=== PATIENT | male | born 1935 | race Caucasian/White ===

== ENCOUNTER 2017-06-13 21:35 | Inpatient (IN) | payer OTHER, BC ==
--- NOTE | 2017-06-13 21:49 | PDOC ---
History of Present Illness <Jeffery Asif - Last Filed: 06/14/17 02:09> - History of Present Illness Initial Comments: 06/13/17 21:46 82 M with h/o COPD/asthma, HTN, HLD, hypothyroid, presenting to ER with SOB. Pt states that he has been feeling unwell for several days. Pt denies F/C. Endorses SOB with chest pressure and tightness. Denies leg swelling. Denies recent immobilization/travel. No h/o DVT/PE. Per family, pt has had progressive decline over several months and has become very weak. En route to ER, pt was found to have significant wheezing. EMS gave nebulizer treatment with significant improvement in symptoms. <Jordan Loza - Last Filed: 06/25/17 20:18> - General Chief Complaint: Shortness of Breath Stated Complaint: DIFFICULTY BREATHING, FEVER Time Seen by Provider: 06/13/17 21:42 Past History <Jeffery Asif - Last Filed: 06/14/17 02:09> - Past Medical History Asthma: Yes Cardiac Disorders: Yes (STENT INSERTION, HEART MURMUR) COPD: Yes Hypercholesterolemia: Yes Thyroid Disease: Yes - Suicide/Smoking/Psychosocial Hx Smoking History: Former smoker Have you smoked in the past 12 months: No Hx Alcohol Use: No Drug/Substance Use Hx: No Substance Use Type: None Hx Substance Use Treatment: No <Jordan Loza - Last Filed: 06/25/17 20:18> - Past Medical History Allergies/Adverse Reactions: Allergies Allergy/AdvReac Type Severity Reaction Status Date / Time prednisone Allergy Verified 06/13/17 21:55 Home Medications: Ambulatory Orders Ascorbic Acid [Vitamin C] 1,000 mg PO DAILY 06/14/17 Aspirin 81 mg PO DAILY 06/14/17 Budesonide/Formeterol Fumarate [SYMBICORT 160/4.5mcg -] 1 inh PO BID 06/14/17 Carvedilol 3.125 mg PO BID 06/14/17 Cholecalciferol (Vitamin D3) [Vitamin D -] 800 unit PO DAILY 06/14/17 Docusate Sodium [Colace] 100 mg PO HS 06/14/17 Docusate Sodium [Colace] 100 mg PO HS 06/14/17 Iron 18 mg PO DAILY 06/14/17 Leflunomide 20 mg PO DAILY 06/14/17 Leflunomide 20 mg PO DAILY 06/14/17 Levothyroxine [Synthroid -] 50 mcg PO DAILY 06/14/17 Montelukast Na [Singulair -] 10 mg PO HS 06/14/17 Montelukast Sodium [Singulair] 10 mg PO HS 06/14/17 Multivitamin [Multiple Vitamins] 1 each PO DAILY 06/14/17 Acetaminophen [Tylenol .Regular Strength -] 650 mg PO Q4H PRN tablet 06/19/17 Albuterol 0.083% Nebulizer Le [Ventolin 0.083% Nebulizer Soln -] 1 amp NEB Q4H PRN amp 06/19/17 Amox-Tr/K Cl [Augmentin 500-125mg Tablet -] 1 tab PO BID@0800,1730 3 Days tablet 06/19/17 Atorvastatin Ca [Lipitor] 80 mg PO HS tablet 06/19/17 Azithromycin [Zithromax 250mg Tablets -] 500 mg PO DAILY tablet 06/19/17 Guaifenesin [Robitussin -] 10 ml PO Q4H PRN cup 06/19/17 Leflunomide [Arava -] 20 mg PO DAILY tablet 06/19/17 Levothyroxine [Synthroid -] 50 mcg PO DAILY@0700 tablet 06/19/17 Polyethylene Glycol 3350 [Miralax 119 gm Btl -] 17 gm PO DAILY bottle 06/19/17 Prednisone [Deltasone -] 20 mg PO DAILY tablet 06/19/17 Review of Systems - Review of Systems Comments:: 06/13/17 21:56 "GENERAL/CONSTITUTIONAL: No fever or chills. No weakness. HEAD, EYES, EARS, NOSE AND THROAT: No change in vision. No ear pain or discharge. No sore throat. CARDIOVASCULAR: + chest pain RESPIRATORY: + SOB GASTROINTESTINAL: No nausea, vomiting, diarrhea or constipation. GENITOURINARY: No dysuria, frequency, or change in urination. MUSCULOSKELETAL: No joint or muscle swelling or pain. No neck or back pain. SKIN: No rash NEUROLOGIC: No headache, vertigo, loss of consciousness, or change in strength/ sensation. ENDOCRINE: No increased thirst. No abnormal weight change. HEMATOLOGIC/LYMPHATIC: No anemia, easy bleeding, or history of blood clots. ALLERGIC/IMMUNOLOGIC: No hives or skin allergy. " <Jordan Loza - Last Filed: 06/25/17 20:18> *Physical Exam - Vital Signs Last Vital Signs Temp Pulse Resp BP Pulse Ox 100.9 F H 116 H 18 153/95 100 06/14/17 00:33 06/13/17 21:51 06/13/17 21:51 06/13/17 21:51 06/13/17 21:51 <Jeffery Asif - Last Filed: 06/14/17 02:09> - Physical Exam Comments: 06/13/17 21:57 "GENERAL: Awake, alert, and fully oriented, in no acute distress HEAD: No signs of trauma EYES: PERRLA, EOMI, sclera anicteric, conjunctiva clear ENT: Auricles normal inspection, hearing grossly normal, nares patent, oropharynx clear without exudates. Moist mucosa NECK: Nontender, no stepoffs, Normal ROM, supple, no lymphadenopathy, JVD, or masses LUNGS: Scant bilateral wheezes HEART: Regular rate and rhythm, normal S1 and S2, no murmurs, rubs or gallops ABDOMEN: Soft, nontender, normoactive bowel sounds. No guarding, no rebound. No masses EXTREMITIES: Normal range of motion, no edema. No clubbing or cyanosis. No cords, erythema, or tenderness NEUROLOGICAL: Cranial nerves II through XII intact. 5/5 strength and sensation in all extremities, Normal speech, normal gait SKIN: Warm, Dry, normal turgor, no rashes or lesions noted. " <Jordan Loza - Last Filed: 06/25/17 20:18> Heart Score/ECG Review - ECG Impressions Comment:: 06/13/17 21:58 NSR, no IDALIA/STDs, TWI in II, III, aVF, hyperacute T waves in V4-V5 <Jordan Loza - Last Filed: 06/25/17 20:18> ED Treatment Course - LABORATORY CBC & Chemistry Diagram: 06/13/17 22:50 06/14/17 00:01 - ADDITIONAL ORDERS Additional order review: Laboratory Results 06/14/17 06/13/17 06/13/17 00:01 23:00 22:50 PTT (Actin FS) VBG pH 7.52 H POC VBG pCO2 30.0 L POC VBG pO2 75.4 H Mixed VBG HCO3 24.3 Sodium 138 Potassium 3.5 Chloride 104 Carbon Dioxide 23 Anion Gap 11 BUN 18 Creatinine 0.5 L Creat Clearance w eGFR > 60 Random Glucose 148 H Calcium 7.8 L Total Bilirubin 0.3 AST 25 ALT 12 Alkaline Phosphatase 73 Creatine Kinase 91 Troponin I 1.97 H* B-Natriuretic Peptide 1852.70 H Total Protein 5.1 L Albumin 2.2 L Blood Type O POSITIVE Antibody Screen Negative 06/13/17 06/13/17 06/13/17 22:50 22:50 22:50 PTT (Actin FS) 57.0 H VBG pH POC VBG pCO2 POC VBG pO2 Mixed VBG HCO3 Sodium Cancelled Potassium Cancelled Chloride Cancelled Carbon Dioxide Cancelled Anion Gap Cancelled BUN Cancelled Creatinine Cancelled Creat Clearance w eGFR Cancelled Random Glucose Cancelled Calcium Cancelled Total Bilirubin Cancelled AST Cancelled ALT Cancelled Alkaline Phosphatase Cancelled Creatine Kinase Cancelled Troponin I Cancelled B-Natriuretic Peptide Cancelled Total Protein Cancelled Albumin Cancelled Blood Type Antibody Screen 06/13/17 23:20 Influenza Types A,B Antigen ([facility]) - Final Nasopharyngeal Swab - Final 06/13/17 22:50 RBC 2.65 L D MCV 91.2 MCHC 32.1 RDW 18.1 H MPV 6.5 L Neutrophils % 76.0 Lymphocytes % 13.3 Monocytes % 7.6 Eosinophils % 2.8 Basophils % 0.3 - RADIOLOGY Radiograph Interpretation: 06/14/17 02:09 EXAM: XR CHEST HISTORY: Shortness of breath COMPARISON: No prior chest x-rays have been transmitted for comparison FINDINGS: Osseous structures are intact. The heart size is magnified on this portable view but probably enlarged. There is prominence of the bilateral pulmonary interstitium diffusely. This could be related to chronic interstitial lung disease or pulmonary congestion. Interstitial pneumonitis is a possible secondary consideration. If prior chest x -rays can be transmitted I can perform a comparative interpretation. Reported by Anoop Suh MD - Medications Given in the ED: ED Medications Discontinued Medications Generic Name Dose Route Start Last Admin Trade Name Freq PRN Reason Stop Dose Admin Acetaminophen 1,000 mg 06/13/17 21:59 06/13/17 23:00 Ofirmev Injection - IVPB 06/13/17 22:00 1,000 mg ONCE ONE Administration Albuterol/Ipratropium 1 amp 06/13/17 21:59 06/13/17 22:58 Duoneb - NEB 06/13/17 22:00 1 amp ONCE ONE Administration Azithromycin 500 mg/ Dextrose 250 mls @ 250 mls/hr 06/13/17 21:59 06/13/17 22 :00 IVPB 06/13/17 22:58 250 mls/hr ONCE ONE Administration Ceftriaxone Sodium 1 gm/ 50 mls @ 100 mls/hr 06/13/17 22:00 06/13/17 23:00 Dextrose IVPB 06/13/17 22:29 100 mls/hr ONCE ONE Administration <Jeffery Asif - Last Filed: 06/14/17 02:09> - LABORATORY CBC & Chemistry Diagram: 06/19/17 05:05 06/19/17 05:05 - RADIOLOGY Radiology Studies Ordered: Category Date Time Status CHEST X-RAY PORTABLE* [RAD] Stat Radiology 06/13/17 21:43 Ordered <Jordan Loza - Last Filed: 06/25/17 20:18> Medical Decision Making - Medical Decision Making 06/13/17 21:58 82 M with SOB and chest pain, wheezing on exam and found to be febrile in ER. Likely PNA with concomitant COPD exacerbation. - Labs, cultures - CXR - Abx - Admit 06/14/17 01:55 CBC,CMP WBC 5.3 K/mm3 (4.0-10.0) 06/13/17 22:50 RBC 2.65 M/mm3 (4.00-5.60) L D 06/13/17 22:50 Hgb 7.8 GM/dL (11.7-16.9) L D 06/13/17 22:50 Hct 24.2 % (35.4-49) L D 06/13/17 22:50 MCV 91.2 fl (80-96) 06/13/17 22:50 MCH 29.3 pg (25.7-33.7) 06/13/17 22:50 MCHC 32.1 g/dl (32.0-35.9) 06/13/17 22:50 RDW 18.1 % (11.9-15.9) H 06/13/17 22:50 Plt Count 131 K/MM3 (134-434) L D 06/13/17 22:50 MPV 6.5 fl (7.5-11.1) L 06/13/17 22:50 Neutrophils % 76.0 % (42.8-82.8) 06/13/17 22:50 Lymphocytes % 13.3 % (8-40) 06/13/17 22:50 Monocytes % 7.6 % (3.8-10.2) 06/13/17 22:50 Eosinophils % 2.8 % (0-4.5) 06/13/17 22:50 Basophils % 0.3 % (0-2.0) 06/13/17 22:50 Sodium 138 mmol/L (136-145) 06/14/17 00:01 Potassium 3.5 mmol/L (3.5-5.1) 06/14/17 00:01 Chloride 104 mmol/L (98-107) 06/14/17 00:01 Carbon Dioxide 23 mmol/L (21-32) 06/14/17 00:01 Anion Gap 11 (8-16) 06/14/17 00:01 BUN 18 mg/dL (7-18) 06/14/17 00:01 Creatinine 0.5 mg/dL (0.7-1.3) L 06/14/17 00:01 Creat Clearance w eGFR > 60 (>60) 06/14/17 00:01 Random Glucose 148 mg/dL (74-106) H 06/14/17 00:01 Calcium 7.8 mg/dL (8.5-10.1) L 06/14/17 00:01 Total Bilirubin 0.3 mg/dL (0.2-1.0) 06/14/17 00:01 AST 25 U/L (15-37) 06/14/17 00:01 ALT 12 U/L (12-78) 06/14/17 00:01 Alkaline Phosphatase 73 U/L (45-117) 06/14/17 00:01 Creatine Kinase 91 IU/L (39-308) 06/14/17 00:01 Troponin I 1.97 ng/ml (0.00-0.05) H* 06/14/17 00:01 B-Natriuretic Peptide 1852.70 pg/ml (5-450) H 06/14/17 00:01 Total Protein 5.1 g/dl (6.4-8.2) L 06/14/17 00:01 Albumin 2.2 g/dl (3.4-5.0) L 06/14/17 00:01 Labs notable for anemia Hb 7.8. Pt with trop 1.97 - EKG with TWI in II,III, hyperacute T waves in V4-V5. Pt likely septic 2/2 pulmonary source. Covered with ceftriaxone and azithro for CAP. Will also transfuse for symptomatic anemia with severe cardiovascular disease. Pt admitted to Med/surg tele under Dr. Ahmadi Case discussed in detail with admitting physician including history, physical exam and ancillary studies. Admitting physician has assumed care for the patient and will follow all pending diagnostics and complete the evaluation and treatment. <Jordan Loza - Last Filed: 06/25/17 20:18> *DC/Admit/Observation/Transfer - Attestations Scribe Attestion: 06/14/17 02:10 Documentation prepared by Jeffery Asif, acting as medical office professional instructor for Jordan Loza MD. <Jeffery Asif - Last Filed: 06/14/17 02:09> - Discharge Dispostion Admit: Yes - Attestations Physician Attestion: 06/14/17 02:08 I, Dr. Jordan Loza MD, attest that this document has been prepared under my direction and personally reviewed by me in its entirety. I further attest, that it accurately reflects all work, treatment, procedures and medical decision -making performed by me. <Jordan Loza - Last Filed: 06/25/17 20:18> Diagnosis at time of Disposition: Sepsis due to pneumonia, Anemia - Discharge Dispostion Disposition: [facility] Condition at time of disposition: Stable
[2017-06-13] MEDS ORDERED: AZITHROMYCIN IVPB 500 MG in DEXTROSE 5%-WATER - 250 ML IVPB ONE (21:59)
[2017-06-13] MEDS ORDERED: ACETAMINOPHEN 1000 MG/100 ML VIAL (NON FORMULARY) IVPB ONE (21:59)
[2017-06-13] MEDS ORDERED: ALBUTEROL SO4 2.5/IPRATROPIUM 0.5 INH SOL 3 ML VIAL.NEB. NEB ONE ×2 (21:59→22:22)
[2017-06-13] MEDS ORDERED: CEFTRIAXONE 1 GM in DEXTROSE 5%-WATER - 50 ML IVPB ONE (22:00)
[2017-06-13] MEDS ORDERED: ACETAMINOPHEN INJECTION 100 ML IVPB ONE (22:22)
[2017-06-13] MEDS ORDERED: AZITHROMYCIN IVPB 250 ML IVPB ONE (22:23)
[2017-06-13] MEDS ORDERED: CEFTRIAXONE 1 GM/50 ML BAG ONE (22:23)
[2017-06-13 23:08] LABS: VENOUS PH 7.52 (7.32-7.42); VENOUS PO2 75.4 mmHg (28-48)
[2017-06-13 23:17] LABS: BASO % 0.3 % (0-2.0); EOS % 2.8 % (0-4.5); HEMATOCRIT 24.2 % (35.4-49); HEMOGLOBIN 7.8 GM/dL (11.7-16.9); LYMPH % 13.3 % (8-40); MCH 29.3 pg (25.7-33.7); MCHC 32.1 g/dl (32.0-35.9); MEAN CELL VOLUME 91.2 fl (80-96); MEAN PLT VOLUME 6.5 fl (7.5-11.1); MONO % 7.6 % (3.8-10.2); PLATELET COUNT 131 K/MM3 (134-434); RBC 2.65 M/mm3 (4.00-5.60); RDW 18.1 % (11.9-15.9); WHITE BLOOD COUNT 5.3 K/mm3 (4.0-10.0)
[2017-06-14 01:35] LABS: ALBUMIN 2.2 g/dl (3.4-5.0); ANION GAP 11 (8-16); BILIRUBIN,TOTAL 0.3 mg/dL (0.2-1.0); BLOOD UREA NITROGEN 18 mg/dL (7-18); CALCIUM 7.8 mg/dL (8.5-10.1); CHLORIDE 104 mmol/L (98-107); CO2 23 mmol/L (21-32); CREATININE 0.5 mg/dL (0.7-1.3); GLUCOSE,RANDOM 148 mg/dL (74-106); POTASSIUM 3.5 mmol/L (3.5-5.1); SGOT/AST 25 U/L (15-37); SGPT/ALT 12 U/L (12-78); SODIUM 138 mmol/L (136-145); TOT PROT 5.1 g/dl (6.4-8.2)
[2017-06-14 01:49] LABS: ALK PHOS 73 U/L (45-117)
--- NOTE | 2017-06-14 03:56 | HP ---
CHIEF COMPLAINT: Weakness, Chest Pain, SOB PCP: Dr Paez HISTORY OF PRESENT ILLNESS: This is a 82 y/o man from home. Who presents to the ED with generalized weakness. chest pain, SOB. Patient is a poor historian unable to provide HPI. per ED record: Pt states that he has been feeling unwell for several days. Pt denies F/C. Endorses SOB with chest pressure and tightness. Denies leg swelling. Denies recent immobilization/travel. No h/o DVT/PE. Per family, pt has had progressive decline over several months and has become very weak. En route to ER, Pt was found to have significant wheezing. EMS gave nebulizer treatment with significant improvement in symptoms. ER course was notable for: (1) Chest Xray image- ? PNA (2) SIRS Criteria Met- T Max 103.3-100.9, P 116, (3) Recent Travel: None PAST MEDICAL HISTORY: Asthma COPD HTN HLD Hypothyroid Cardiac stent placement PAST SURGICAL HISTORY: Stent Placement Social History: Smoking: Former Alcohol: None Drugs: None Lives with spouse Family History: Non- Contributory Allergies prednisone Allergy (Verified 06/13/17 21:55) HOME MEDICATIONS: Home Medications Medication Instructions Recorded Ascorbic Acid [Vitamin C] 1,000 mg PO DAILY 06/14/17 Aspirin 81 mg PO DAILY 06/14/17 Atorvastatin Ca [Lipitor] 20 mg PO HS 06/14/17 Budesonide/Formeterol Fumarate 1 inh PO DAILY 06/14/17 [SYMBICORT 160/4.5mcg -] Carvedilol 3.125 mg PO DAILY 06/14/17 Cholecalciferol (Vitamin D3) 800 unit PO DAILY 06/14/17 [Vitamin D3 -] Docusate Sodium [Colace] 100 mg PO HS 06/14/17 Iron 18 mg PO DAILY 06/14/17 Leflunomide 20 mg PO DAILY 06/14/17 Montelukast Na [Singulair -] 10 mg PO HS 06/14/17 Multivitamin [Multiple Vitamins] 1 each PO DAILY 06/14/17 REVIEW OF SYSTEMS CONSTITUTIONAL: generalized weakness, malaise, loss of appetite, Absent: fever, chills, diaphoresis, weight change HEENT: Absent: rhinorrhea, nasal congestion, throat pain, throat swelling, difficulty swallowing, mouth swelling, ear pain, eye pain, visual changes CARDIOVASCULAR: chest pain Absent: syncope, palpitations, irregular heart rate, lightheadedness, peripheral edema RESPIRATORY: shortness of breath Absent: cough, dyspnea with exertion, orthopnea, wheezing, stridor, hemoptysis GASTROINTESTINAL: Absent: abdominal pain, abdominal distension, nausea, vomiting, diarrhea, constipation, melena, hematochezia GENITOURINARY: Absent: dysuria, frequency, urgency, hesitancy, hematuria, flank pain, genital pain MUSCULOSKELETAL: Absent: myalgia, arthralgia, joint swelling, back pain, neck pain SKIN: Absent: rash, itching, pallor HEMATOLOGIC/IMMUNOLOGIC: Absent: easy bleeding, easy bruising, lymphadenopathy, frequent infections ENDOCRINE: Absent: unexplained weight gain, unexplained weight loss, heat intolerance, cold intolerance NEUROLOGIC: Absent: headache, focal weakness or paresthesias, dizziness, unsteady gait, seizure, mental status changes, bladder or bowel incontinence PSYCHIATRIC: Absent: anxiety, depression, suicidal or homicidal ideation, hallucinations. PHYSICAL EXAMINATION Vital Signs - 24 hr 06/13/17 06/14/17 06/14/17 21:51 00:33 03:36 Temperature 103.3 F H 100.9 F H Pulse Rate 116 H Respiratory 18 Rate Blood Pressure 153/95 O2 Sat by Pulse 100 95 Oximetry (%) 06/14/17 03:54 Temperature 99.6 F Pulse Rate Respiratory Rate Blood Pressure O2 Sat by Pulse Oximetry (%) GENERAL: Asleep but arousable, oriented to name, in no acute distress. HEAD: Normal with no signs of trauma. EYES: Pupils equal, round and reactive to light, extraocular movements intact, sclera anicteric, conjunctiva clear, pale. No lid lag. EARS, NOSE, THROAT: Ears normal, nares patent, oropharynx clear without exudates. Dry mucous membranes. NECK: Normal range of motion, supple without lymphadenopathy, JVD, or masses. LUNGS: Scattered diffuse wheezes bilaterally. no crackles. No accessory muscle use. HEART: Systolic grade 2/6 murmur Regular rate and rhythm, normal S1 and S2. No rub or gallop. ABDOMEN: Soft, nontender, not distended, normoactive bowel sounds, no guarding, no rebound, no masses. No hepatomegaly or splenomegaly. MUSCULOSKELETAL: Normal range of motion at all joints. No bony deformities or tenderness. No CVA tenderness. UPPER EXTREMITIES: 2+ pulses, warm, well-perfused. No cyanosis. No clubbing. No peripheral edema. LOWER EXTREMITIES: 2+ pulses, warm, well-perfused. No calf tenderness. No peripheral edema. NEUROLOGICAL: Cranial nerves II-XII intact. Normal speech. Gait not observed. PSYCHIATRIC: Cooperative. Good eye contact. Appropriate mood and affect. SKIN: Pale, warm, dry, normal turgor, no rashes or lesions noted, normal capillary refill. Laboratory Results - last 24 hr 06/13/17 06/13/17 06/13/17 22:50 22:50 22:50 WBC 5.3 RBC 2.65 L D Hgb 7.8 L D Hct 24.2 L D MCV 91.2 MCH 29.3 MCHC 32.1 RDW 18.1 H Plt Count 131 L D MPV 6.5 L Neutrophils % 76.0 Lymphocytes % 13.3 Monocytes % 7.6 Eosinophils % 2.8 Basophils % 0.3 PTT (Actin FS) 57.0 H VBG pH POC VBG pCO2 POC VBG pO2 Mixed VBG HCO3 Sodium Potassium Chloride Carbon Dioxide Anion Gap BUN Creatinine Creat Clearance w eGFR Random Glucose Lactic Acid Calcium Total Bilirubin AST ALT Alkaline Phosphatase Creatine Kinase Cancelled Troponin I Cancelled B-Natriuretic Peptide Cancelled Total Protein Albumin Stool Occult Blood Blood Type Antibody Screen Crossmatch 06/13/17 06/13/17 06/13/17 22:50 22:50 23:00 WBC RBC Hgb Hct MCV MCH MCHC RDW Plt Count MPV Neutrophils % Lymphocytes % Monocytes % Eosinophils % Basophils % PTT (Actin FS) VBG pH 7.52 H POC VBG pCO2 30.0 L POC VBG pO2 75.4 H Mixed VBG HCO3 24.3 Sodium Cancelled Potassium Cancelled Chloride Cancelled Carbon Dioxide Cancelled Anion Gap Cancelled BUN Cancelled Creatinine Cancelled Creat Clearance w eGFR Cancelled Random Glucose Cancelled Lactic Acid Calcium Cancelled Total Bilirubin Cancelled AST Cancelled ALT Cancelled Alkaline Phosphatase Cancelled Creatine Kinase Troponin I B-Natriuretic Peptide Total Protein Cancelled Albumin Cancelled Stool Occult Blood Blood Type O POSITIVE Antibody Screen Negative Crossmatch 06/14/17 06/14/17 06/14/17 00:01 00:15 02:30 WBC RBC Hgb Hct MCV MCH MCHC RDW Plt Count MPV Neutrophils % Lymphocytes % Monocytes % Eosinophils % Basophils % PTT (Actin FS) VBG pH POC VBG pCO2 POC VBG pO2 Mixed VBG HCO3 Sodium 138 Potassium 3.5 Chloride 104 Carbon Dioxide 23 Anion Gap 11 BUN 18 Creatinine 0.5 L Creat Clearance w eGFR > 60 Random Glucose 148 H Lactic Acid Calcium 7.8 L Total Bilirubin 0.3 AST 25 ALT 12 Alkaline Phosphatase 73 Creatine Kinase 91 Troponin I 1.97 H* B-Natriuretic Peptide 1852.70 H Total Protein 5.1 L Albumin 2.2 L Stool Occult Blood Negative Blood Type O POSITIVE Antibody Screen Negative Crossmatch See Detail 06/14/17 02:37 WBC RBC Hgb Hct MCV MCH MCHC RDW Plt Count MPV Neutrophils % Lymphocytes % Monocytes % Eosinophils % Basophils % PTT (Actin FS) VBG pH POC VBG pCO2 POC VBG pO2 Mixed VBG HCO3 Sodium Potassium Chloride Carbon Dioxide Anion Gap BUN Creatinine Creat Clearance w eGFR Random Glucose Lactic Acid 1.3 Calcium Total Bilirubin AST ALT Alkaline Phosphatase Creatine Kinase Troponin I B-Natriuretic Peptide Total Protein Albumin Stool Occult Blood Blood Type Antibody Screen Crossmatch ASSESSMENT/PLAN: This is a 82 y/o man with a PMHx of: HTN, HLD, Asthma, COPD, Stent placement, Heart murmur, Former Smoker. Admitted for Sepsis secondary to Pneumonia, NSTEMI , Anemia. Plan: 1. Sepsis 2/2 CAP - Blood cultures-pending, Urine Culture, Urine Legionella- pending [id number] Score 2. Pt received Azithromycin, Ceftriaxone for CAP will continue. Appreciate ID Consult. Tylenol prn, gentle IVF, monitor CBCD, BMP. Lactic Acid- wnl 2. NSTEMI- Serial Enzymes x2, EKG reviewed, Continue cardiac monitoring, On exam- patient denies chest pain palpitations and SOB at present., Appreciate Cardiology Consult, Echo 3. Anemia- Hgb 7.8, concerning for a 2 points from last visit, stool occult- negative, will transfuse if H/H < 7.0, iron studies in am 4.? COPD Exacerbation- Continue home meds, O2, Duonebs prn, BNP- 1852 Monitor vitals, Appreciate Pulm Consult 5. Asthma- See above 6. HTN/HLD- Continue home meds, monitor renal function 7. FEN- PO fluids 1L Restriction, replete lytes, Low Na, Diabetic Diet 8. Code Status: Full Code 9. Dispo: Requires Inpatient Admission Problem List - Problem (1) Sepsis due to pneumonia Code(s): J18.9 - PNEUMONIA, UNSPECIFIED ORGANISM; A41.9 - SEPSIS, UNSPECIFIED ORGANISM (2) Weakness Code(s): R53.1 - WEAKNESS (3) Anemia Code(s): D64.9 - ANEMIA, UNSPECIFIED (4) COPD (chronic obstructive pulmonary disease) Code(s): J44.9 - CHRONIC OBSTRUCTIVE PULMONARY DISEASE, UNSPECIFIED (5) HTN (hypertension) Code(s): I10 - ESSENTIAL (PRIMARY) HYPERTENSION (6) HLD (hyperlipidemia) Code(s): E78.5 - HYPERLIPIDEMIA, UNSPECIFIED (7) Asthma Code(s): J45.909 - UNSPECIFIED ASTHMA, UNCOMPLICATED (8) DVT prophylaxis Code(s): [id number] - Visit type - Emergency Visit Emergency Visit: Yes ED Registration Date: 06/14/17 Care time: The patient presented to the Emergency Department on the above date and was hospitalized for further evaluation of their emergent condition. - New Patient This patient is new to me today: Yes Date on this admission: 06/14/17 - Critical Care Critical Care patient: No
[2017-06-14 04:15] LABS: URINE APPEARANCE CLEAR; URINE BILIRUBIN NEGATIVE (NEGATIVE); URINE BLOOD NEGATIVE (NEGATIVE); URINE COLOR LTYELLOW; URINE GLUCOSE (UA) NEGATIVE (NEGATIVE); URINE KETONE NEGATIVE (NEGATIVE); URINE LEUK ESTERASE NEGATIVE (NEGATIVE); URINE NITRITE NEGATIVE (NEGATIVE); URINE PROTEIN NEGATIVE (NEGATIVE); URINE UROBILINOGEN NEGATIVE mg/dL (0.2-1.0)
[2017-06-14 06:02] VITALS: BMI 19.3
[2017-06-14 08:16] LABS: INR 1.17 (0.82-1.09); PROTHROMBIN TIME (PATIENT) 13.2 SEC (9.98-11.88)
[2017-06-14 08:23] LABS: HEMATOCRIT 25.8 % (35.4-49); HEMOGLOBIN 8.4 GM/dL (11.7-16.9); MCH 29.2 pg (25.7-33.7); MCHC 32.3 g/dl (32.0-35.9); MEAN CELL VOLUME 90.4 fl (80-96); MEAN PLT VOLUME 6.4 fl (7.5-11.1); PLATELET COUNT 127 K/MM3 (134-434); RBC 2.86 M/mm3 (4.00-5.60); RDW 17.8 % (11.9-15.9); WHITE BLOOD COUNT 5.8 K/mm3 (4.0-10.0)
[2017-06-14 08:30] LABS: ANION GAP 8 (8-16); BLOOD UREA NITROGEN 13 mg/dL (7-18); CALCIUM 7.5 mg/dL (8.5-10.1); CHLORIDE 105 mmol/L (98-107); CO2 25 mmol/L (21-32); GLUCOSE,RANDOM 92 mg/dL (74-106); MAGNESIUM 1.9 mg/dL (1.8-2.4); POTASSIUM 3.5 mmol/L (3.5-5.1); SODIUM 138 mmol/L (136-145)
[2017-06-14 08:48] LABS: CREATININE 0.4 mg/dL (0.7-1.3)
[2017-06-14] MEDS ORDERED: CARVEDILOL 3.125 MG TABLET (FP) PO SCH (10:00)
[2017-06-14] MEDS: CARVEDILOL 3.125 MG TABLET (FP) PO SCH ×2 (11:00→21:15)
--- NOTE | 2017-06-14 11:21 | CON.CARD ---
Consult Consult Specialty:: cardio Referred by:: sharri Reason for Consultation:: DC - History of Present Illness Chief Complaint: malaise, weakness History of Present Illness: 82 y/o man presented with generalized weakness. per ER notes, pt admitted chest heaviness and SOB (? when). sx's ongoing for few days--poor historian per those notes. currently, he denies chest discomfort or sob and states he did not have this at home either. denies palpitations, leg swelling PMH: CAD, h/o AWMI HTN HPL thoracic aorta aneurysm copd AV dz - Alcohol/Substance Use Hx Alcohol Use: No - Smoking History Smoking history: Former smoker Have you smoked in the past 12 months: No Home Medications - Allergies Allergies/Adverse Reactions: Allergies Allergy/AdvReac Type Severity Reaction Status Date / Time prednisone Allergy Verified 06/13/17 21:55 - Home Medications Home Medications: Ambulatory Orders Ascorbic Acid [Vitamin C] 1,000 mg PO DAILY 06/14/17 Aspirin 81 mg PO DAILY 06/14/17 Atorvastatin Ca [Lipitor] 20 mg PO HS 06/14/17 Budesonide/Formeterol Fumarate [SYMBICORT 160/4.5mcg -] 1 inh PO BID 06/14/17 Carvedilol 3.125 mg PO BID 06/14/17 Cholecalciferol (Vitamin D3) [Vitamin D3 -] 800 unit PO DAILY 06/14/17 Docusate Sodium [Colace] 100 mg PO HS 06/14/17 Docusate Sodium [Colace] 100 mg PO HS 06/14/17 Iron 18 mg PO DAILY 06/14/17 Leflunomide 20 mg PO DAILY 06/14/17 Leflunomide 20 mg PO DAILY 06/14/17 Levothyroxine [Synthroid -] 50 mcg PO DAILY 06/14/17 Montelukast Na [Singulair -] 10 mg PO HS 06/14/17 Montelukast Sodium [Singulair] 10 mg PO HS 06/14/17 Multivitamin [Multiple Vitamins] 1 each PO DAILY 06/14/17 Family Disease History - Family Disease History Family History: Denies (no known CMP) Review of Systems - Review of Systems Constitutional: reports: Weakness Eyes: denies: Eye Pain HENT: denies: Nasal Congestion Neck: denies: Stiffness Cardiovascular: denies: Palpitations Respiratory: denies: Orthopnea, PND Gastrointestinal: denies: Diarrhea, Rectal Bleeding Genitourinary: denies: Burning, Hematuria Musculoskeletal: denies: Muscle Pain Integumentary: denies: Rash Neurological: denies: Numbness, Seizure, Syncope Endocrine: denies: Excessive Sweating Hematology/Lymphatic: denies: Excessive Bleeding Vital Signs: Vital Signs Temperature 98.6 F 06/14/17 10:37 Pulse Rate 84 06/14/17 10:37 Respiratory Rate 20 06/14/17 10:37 Blood Pressure 116/60 06/14/17 10:37 O2 Sat by Pulse Oximetry (%) 95 06/14/17 03:36 Constitutional: Yes: Well Nourished, No Distress Eyes: No: Sclera Icterus HENT: No: Nasal Congestion Neck: No: Decreased ROM Respiratory: Yes: CTA Bilaterally. No: Accessory Muscle Use, Rales, Wheezes Gastrointestinal: Yes: Normal Bowel Sounds. No: Distention, Hepatomegaly, Palpable Mass, Tenderness Cardiovascular: Yes: Regular Rate and Rhythm JVD: No Carotid Bruit: No PMI: Non-Displaced Heart Sounds: Yes: S1, S2. No: Gallop Murmur: Yes: Systolic Murmur (2/6 early VICKY rusb). No: Diastolic Murmur Musculoskeletal: Yes: Other (No kyphosis) Extremities: No: Cool, Cyanosis Edema: No Peripheral Pulses: 2+ Left Carotid, 2+ Right Carotid, 2+ Left Doralis Pedis, 2+ Right Dorsalis Pedis Integumentary: No: Jaundice Neurological: Yes: Alert. No: Seizure Psychiatric: No: Agitated - Other Data Labs, Other Data: CBC, BMP 06/14/17 07:00 06/14/17 07:00 INR, PTT INR 1.17 (0.82-1.09) H 06/14/17 07:00 Troponin, BNP 06/13/17 06/14/17 06/14/17 22:50 00:01 07:00 Troponin I Cancelled 1.97 H* 2.28 H* B-Natriuretic Peptide Cancelled 1852.70 H Troponin, BNP 06/13/17 06/14/17 06/14/17 22:50 00:01 07:00 Troponin I Cancelled 1.97 H* 2.28 H* B-Natriuretic Peptide Cancelled 1852.70 H Laboratory Tests 06/13/17 06/13/17 06/14/17 22:50 22:50 00:01 WBC 5.3 Hgb 7.8 L D Plt Count 131 L D PTT (Actin FS) 57.0 H Sodium Potassium Carbon Dioxide BUN Creatinine Troponin I 1.97 H* B-Natriuretic Peptide 1852.70 H 06/14/17 06/14/17 07:00 07:00 WBC Hgb 8.4 L Plt Count PTT (Actin FS) Sodium 138 Potassium 3.5 Carbon Dioxide 25 BUN 13 D Creatinine 0.4 L Troponin I 2.28 H* B-Natriuretic Peptide tele: NSR Assessment/Plan Echo 03/07: nl LV, nl RV, mild AI, mild-mod , ao root 4.[address] chest 05/06: severe copd changes, 4.2 cm ascending aorta ECG 06/13: very poor baseline. ? Afib, vs sinus with freq APCs. R-bonds QRS axis new vs prior. no path Q's. nonsp TWAs vs 12/2006 ECG 06/14: baseline wander artifact present--no suspected ST elevations. NSR with APCs, intermittent inc RBBB with associated repol abn.s; R-bonds QRS axis CXR: marked diffuse interstitial markings, no vasc redistribution, no alveolar infiltrates, no effusion (L base not well seen) generalized weakness, fever (103.3 in ER): -infectious w/u and tx per hospitalist -lactate normal -soft systolic murmur on exam, likely related to mild-mod noted on 03/07 office echo. -for rpt echo here NSTEMI, h/o CAD (AWMI s/p PCI): -pt with AW STEMI 2010 s/p PCI to mLAD, no residual -no angina or stress testing recently -preserved LVEF -here with nonspecific sx's for several days, including cp and sob (? timing of onset of angina sx's). -trop 1.9-->2.2-->2.0 -? Type II DC, vs Type I DC triggered by acute infection. -given pt clinically very stable and no ongoing sx's, and he has signif anemia of ? etiology, will defer heparin at present. low threshold to add UFH if anginal sx's. -cont home meds: coreg 3.125 bid, asa -increase atorva to 80 for now, at least short term for max anti-DC prevention, then will likely decr dose as outpt in several weeks -ecg's with signif motion artifact present, no ischemic ST changes noted--f/u ECG this am -right QRS axis present on ECG, ? due to copd--no recent priors for comparison. will check office chart. -no hypoxia here, doubt PE. -echo for LV wall motion/EF and RV size/fxn ? afib: -initial ECG with very poor baseline--cannot exclude Afib (vs sinus with APCs -cont tele monitoring -defer AC unless definite AFib seen (kwaku given acute anemia req PRBCs) anemia: -initial hgb 7.8, s/p PRBCs--up to 8.4 -baseline hgb 9 in 08/07, was 8.9 on 06/11 office labs -w/u per pmd -guaiac negative. cont ASA for now SOB: -? anginal sx at home, ? sec to anemia, known chronic copd -CXR reviewed, appears c/w chronic interstitial changes related to copd; no chf pattern -consider CT chest if no cause of fever found (atypical PNA?) -bnp 1800, no priors -clinically appears euvolemic--no diuresis indicated copd: -per pmd HTN: -bp running 90s-110s at present -cont carvedilol for now, low threshold to stop it if bp dips further aorta aneurysm: -stable size 4.2-4.5 cm ao root/ascending on recent imaging -routine bp mgmt and imaging surveillance as doing AV dz: -mild to moderate (03/07 study)
[2017-06-14] MEDS: FERROUS SO4 325 MG TABLET (FP) PO SCH (11:46)
[2017-06-14] MEDS: MULTIVITAMINS (DAILY MVI) TABLET (FP) PO SCH (11:46)
[2017-06-14] MEDS: ASCORBIC ACID 500 MG TABLET (FP) PO SCH (11:46)
[2017-06-14] MEDS: ASPIRIN 81 MG CHEWABLE TABLETS PO SCH (11:46)
--- NOTE | 2017-06-14 12:07 | CON.ID ---
Consult Consult Specialty:: infectious diseases Reason for Consultation:: pneumonia,weakness - History of Present Illness Chief Complaint: weakness History of Present Illness: 82 y/o man from home. admitted with generalized weakness. chest pain, SOB. Patient is a poor historian unable to provide HPI. Pt states that he has been feeling unwell for several days. patient also mentions that he has been having breathing difficuilty patient was found to ahve wheezing in the er also patient is a bit hard of hearing currently patinet states that he is feeling a little better patient started on abx ceftriaxone and zithro daughter in the room also on work up patient had positive troponin - History Source History Provided By: Patient, Family Member - Alcohol/Substance Use Hx Alcohol Use: No - Smoking History Smoking history: Former smoker Have you smoked in the past 12 months: No Home Medications - Allergies Allergies/Adverse Reactions: Allergies Allergy/AdvReac Type Severity Reaction Status Date / Time prednisone Allergy Verified 06/13/17 21:55 - Home Medications Home Medications: Ambulatory Orders Ascorbic Acid [Vitamin C] 1,000 mg PO DAILY 06/14/17 Aspirin 81 mg PO DAILY 06/14/17 Atorvastatin Ca [Lipitor] 20 mg PO HS 06/14/17 Budesonide/Formeterol Fumarate [SYMBICORT 160/4.5mcg -] 1 inh PO BID 06/14/17 Carvedilol 3.125 mg PO BID 06/14/17 Cholecalciferol (Vitamin D3) [Vitamin D3 -] 800 unit PO DAILY 06/14/17 Docusate Sodium [Colace] 100 mg PO HS 06/14/17 Docusate Sodium [Colace] 100 mg PO HS 06/14/17 Iron 18 mg PO DAILY 06/14/17 Leflunomide 20 mg PO DAILY 06/14/17 Leflunomide 20 mg PO DAILY 06/14/17 Levothyroxine [Synthroid -] 50 mcg PO DAILY 06/14/17 Montelukast Na [Singulair -] 10 mg PO HS 06/14/17 Montelukast Sodium [Singulair] 10 mg PO HS 06/14/17 Multivitamin [Multiple Vitamins] 1 each PO DAILY 06/14/17 Review of Systems - Review of Systems Constitutional: reports: No Symptoms, Other (weakness) Eyes: reports: No Symptoms HENT: reports: No Symptoms Neck: reports: No Symptoms Cardiovascular: reports: No Symptoms Respiratory: reports: SOB, SOB on Exertion, Wheezing Gastrointestinal: reports: No Symptoms Genitourinary: reports: No Symptoms Musculoskeletal: reports: Muscle Weakness Integumentary: reports: No Symptoms Neurological: reports: Other Endocrine: reports: No Symptoms Physical Exam Vital Signs: Vital Signs Temperature 98.6 F 06/14/17 10:37 Pulse Rate 84 06/14/17 10:37 Respiratory Rate 20 06/14/17 10:37 Blood Pressure 116/60 06/14/17 10:37 O2 Sat by Pulse Oximetry (%) 95 06/14/17 03:36 Constitutional: Yes: Calm, Mild Distress Eyes: Yes: Conjunctiva Clear Neck: Yes: Supple, Trachea Midline Cardiovascular: Yes: Regular Rate and Rhythm Respiratory: Yes: On Nasal O2, Poor Air Entry, Rhonchi Gastrointestinal: Yes: Normal Bowel Sounds Musculoskeletal: Yes: WNL Extremities: Yes: WNL Neurological: Yes: Alert Labs: CBC, BMP 06/14/17 07:00 06/14/17 07:00 Imaging - Results Chest X-ray: Report Reviewed, Image Reviewed Assessment/Plan after evaluating the patient i think this multifactorial,patient has some cardiac issue going on and possibilty of pneumonia is also there though i do not see any specific findings in the xray patient has been started on ceftriaxone and zithro and he is stable Problem List - Problems (1) SIRS (systemic inflammatory response syndrome) Code(s): R65.10 - SIRS OF NON-INFECTIOUS ORIGIN W/O ACUTE ORGAN DYSFUNCTION (2) Anemia Code(s): D64.9 - ANEMIA, UNSPECIFIED (3) COPD (chronic obstructive pulmonary disease) Code(s): J44.9 - CHRONIC OBSTRUCTIVE PULMONARY DISEASE, UNSPECIFIED (4) HLD (hyperlipidemia) Code(s): E78.5 - HYPERLIPIDEMIA, UNSPECIFIED (5) HTN (hypertension) Code(s): I10 - ESSENTIAL (PRIMARY) HYPERTENSION (6) Sepsis due to pneumonia Code(s): J18.9 - PNEUMONIA, UNSPECIFIED ORGANISM; A41.9 - SEPSIS, UNSPECIFIED ORGANISM (7) Weakness Code(s): R53.1 - WEAKNESS (8) Troponin I above reference range Code(s): R74.8 - ABNORMAL LEVELS OF OTHER SERUM ENZYMES (9) Anemia Code(s): D64.9 - ANEMIA, UNSPECIFIED (10) Anemia Code(s): D64.9 - ANEMIA, UNSPECIFIED (11) Asthma Code(s): J45.909 - UNSPECIFIED ASTHMA, UNCOMPLICATED plan will continue current abx await for blood cx incentive trung rest as per pulmonary and primary team
[2017-06-14] MEDS: AZITHROMYCIN IVPB 500 MG in DEXTROSE 5%-WATER - 250 ML IVPB SCH (12:34)
[2017-06-14] MEDS: CEFTRIAXONE 1 G/50 ML PREMIX 50 ML IVPB SCH (12:34)
[2017-06-14] MEDS: CHOLECALCIFEROL (VITAMIN D3) 400 UNIT TABLET (FP) PO SCH (12:35)
--- NOTE | 2017-06-14 13:23 | PN ---
Progress Note (short form) - Note Progress Note: Patient with a known history of smoking, ASHD and ME, TAA 4.2 cm, COPD with interstitial and other chronic changes on Chest CT 2016, chronic anemia which had been 9.8 Gm, possible thickening of esophageal-gastric region on Abd CT in 2016 but refusing to have endoscopy when seen by GI MD. [place] very weak with fall on day of admission necessitating EMS transfer to ER. Patient had 103 temperature in ER and although no acute infiltrate was seen on CXR patient had interstitial and ? nodular changes. He has had a rise in Troponin and Cardiology consult has been placed. His hemoglobin also fell here to 7.8GM and he is receiving a blood transfusion. On Exam: Vital Signs Temp 98.6 F 06/14/17 10:37 Pulse 84 06/14/17 10:37 Resp 20 06/14/17 10:37 BP 116/60 06/14/17 10:37 Pulse Ox 97 06/14/17 09:00 Intake & Output 06/13/17 06/14/17 06/14/17 23:59 11:59 23:59 Output Total 200 Balance -200 Weight 160 lb 119 lb 6.4 oz Output: Urine 200 Void 200 Other: Voiding Method Urinal # Unmeasured Voids Void 1 Height 5 ft 6 in 5 ft 6 in Body Mass Index (BMI) 25.8 19.3 Weight Measurement Method Standing Scale Alert hard of hearing Chest: decreased breath sounds and a few wheezes. Cor: Reg Abd: non tender Ext: no edema Abnormal Lab Results 06/13/17 06/13/17 06/13/17 22:50 22:50 23:00 RBC 2.65 L D Hgb 7.8 L D Hct 24.2 L D RDW 18.1 H Plt Count 131 L D MPV 6.5 L PT with INR INR PTT (Actin FS) 57.0 H VBG pH 7.52 H POC VBG pCO2 30.0 L POC VBG pO2 75.4 H Creatinine Random Glucose Calcium Ferritin Troponin I B-Natriuretic Peptide Total Protein Albumin Crossmatch 06/14/17 06/14/17 06/14/17 00:01 00:15 07:00 RBC 2.86 L Hgb 8.4 L Hct 25.8 L RDW 17.8 H Plt Count 127 L MPV 6.4 L PT with INR INR PTT (Actin FS) VBG pH POC VBG pCO2 POC VBG pO2 Creatinine 0.5 L Random Glucose 148 H Calcium 7.8 L Ferritin Troponin I 1.97 H* B-Natriuretic Peptide 1852.70 H Total Protein 5.1 L Albumin 2.2 L Crossmatch See Detail 06/14/17 06/14/17 06/14/17 07:00 07:00 08:05 RBC Hgb Hct RDW Plt Count MPV PT with INR 13.20 H INR 1.17 H PTT (Actin FS) VBG pH POC VBG pCO2 POC VBG pO2 Creatinine 0.4 L Random Glucose Calcium 7.5 L Ferritin 448.962 H Troponin I 2.28 H* B-Natriuretic Peptide Total Protein Albumin Crossmatch 06/14/17 12:24 RBC Hgb Hct RDW Plt Count MPV PT with INR INR PTT (Actin FS) VBG pH POC VBG pCO2 POC VBG pO2 Creatinine Random Glucose Calcium Ferritin Troponin I 2.09 H* B-Natriuretic Peptide Total Protein Albumin Crossmatch Hepatic Panel Total Bilirubin 0.3 mg/dL (0.2-1.0) 06/14/17 00:01 AST 25 U/L (15-37) 06/14/17 00:01 ALT 12 U/L (12-78) 06/14/17 00:01 Alkaline Phosphatase 73 U/L (45-117) 06/14/17 00:01 Albumin 2.2 g/dl (3.4-5.0) L 06/14/17 00:01 IMP: COPD with acute exacerbation R/O Pneumonia ASHD with history ME and possible acute ischemia event Anemia Hx: pssible gastric/esophageal lesion TAA 4.2 aneurysm Fall Rheumatoid arthritis Plan: Followup Lab Cardiology; ID and Pulmonary MD's F/U CT scans when stable cardiac function Continue Antibiotics
[2017-06-14] MEDS ORDERED: guaiFENesin 200 MG/10 ML 10 ML UNIT-DOSE CUPS PO PRN (13:26)
[2017-06-14] MEDS: BUDESONIDE/FORMETEROL FUMARATE 160/4.5 mcg INHALER IH SCH ×2 (14:05→21:15)
--- NOTE | 2017-06-14 15:24 | EKG ---
Test Reason : Blood Pressure : / mmHG Vent. Rate : 089 BPM Atrial Rate : 089 BPM P-R Int : 170 ms QRS Dur : 128 ms QT Int : 404 ms P-R-T Axes : 072 091 036 degrees QTc Int : 491 ms BASELINE ARTIFACT SINUS RHYTHM WITH PREMATURE SUPRAVENTRICULAR COMPLEXES RIGHTWARD AXIS NON-SPECIFIC INTRA-VENTRICULAR CONDUCTION BLOCK POSSIBLE INFERIOR INFARCT (CITED ON OR BEFORE 13-JUN-2017) T WAVE ABNORMALITY, CONSIDER ANTERIOR ISCHEMIA ABNORMAL ECG WHEN COMPARED WITH ECG OF 13-JUN-2017 21:51, BASELINE ARTIFACT POOR DATA QUALITY IN CURRENT ECG PRECLUDES SERIAL COMPARISON Confirmed by JAKE MARSHALL MD ([id number]) on 06/14/2017 3:24:43 PM Referred By: Confirmed By:JAKE MARSHALL MD
--- NOTE | 2017-06-14 15:26 | EKG ---
Test Reason : Blood Pressure : / mmHG Vent. Rate : 105 BPM Atrial Rate : 105 BPM P-R Int : 172 ms QRS Dur : 094 ms QT Int : 338 ms P-R-T Axes : 069 102 006 degrees QTc Int : 446 ms SINUS TACHYCARDIA WITH FREQUENT and consecutive PREMATURE VENTRICULAR COMPLEXES POSSIBLE LEFT ATRIAL ENLARGEMENT RIGHTWARD AXIS SEPTAL INFARCT , AGE UNDETERMINED CANNOT RULE OUT INFERIOR INFARCT , AGE UNDETERMINED ABNORMAL ECG WHEN COMPARED WITH ECG OF 14-JAN-2007 19:42, SIGNIFICANT CHANGES HAVE OCCURRED Confirmed by ROX ENRIQUEZ MD ([id number]) on 06/14/2017 3:25:49 PM Referred By: Confirmed By:ROX ENRIQUEZ MD
[2017-06-14] MEDS: ATORVASTATIN CA 80 MG TABLET (FP) PO SCH (21:15)
[2017-06-14] MEDS: MONTELUKAST NA 10 MG TABLET PO SCH (21:15)
[2017-06-14] MEDS: DOCUSATE SODIUM 100 MG CAPSULE (FP) PO SCH (21:15)
[2017-06-14] MEDS ORDERED: ATORVASTATIN CA 20 MG TABLET (FP) PO SCH (22:00)
[2017-06-15 06:06] LABS: SERUM IRON SATURATION 9 % (15-55); TOTAL IRON BINDING CAPACITY 169 ug/dL (250-450); UIBC 154 ug/dL (111-343)
[2017-06-15 07:00] LABS: BASO % 0.4 % (0-2.0); EOS % 3.7 % (0-4.5); HEMATOCRIT 29.3 % (35.4-49); HEMOGLOBIN 9.8 GM/dL (11.7-16.9); LYMPH % 16.7 % (8-40); MCH 29.9 pg (25.7-33.7); MCHC 33.5 g/dl (32.0-35.9); MEAN CELL VOLUME 89.4 fl (80-96); MEAN PLT VOLUME 6.5 fl (7.5-11.1); NEUT % 69.2 % (42.8-82.8); PLATELET COUNT 141 K/MM3 (134-434); RBC 3.27 M/mm3 (4.00-5.60); RDW 17.6 % (11.9-15.9); WHITE BLOOD COUNT 5.1 K/mm3 (4.0-10.0)
[2017-06-15 07:23] LABS: ANION GAP 11 (8-16); BLOOD UREA NITROGEN 14 mg/dL (7-18); CHLORIDE 102 mmol/L (98-107); CO2 24 mmol/L (21-32); CREATININE 0.4 mg/dL (0.7-1.3); GLUCOSE,RANDOM 83 mg/dL (74-106); POTASSIUM 3.7 mmol/L (3.5-5.1); SODIUM 137 mmol/L (136-145)
[2017-06-15] MEDS: BUDESONIDE/FORMETEROL FUMARATE 160/4.5 mcg INHALER IH SCH ×2 (09:23→23:35)
[2017-06-15] MEDS: ASCORBIC ACID 500 MG TABLET (FP) PO SCH (09:24)
[2017-06-15] MEDS: CARVEDILOL 3.125 MG TABLET (FP) PO SCH ×2 (09:24→21:06)
[2017-06-15] MEDS: CEFTRIAXONE 1 G/50 ML PREMIX 50 ML IVPB SCH (09:24)
[2017-06-15] MEDS: FERROUS SO4 325 MG TABLET (FP) PO SCH (09:24)
[2017-06-15] MEDS: MULTIVITAMINS (DAILY MVI) TABLET (FP) PO SCH (09:24)
[2017-06-15] MEDS: ASPIRIN 81 MG CHEWABLE TABLETS PO SCH (09:24)
[2017-06-15] MEDS: CHOLECALCIFEROL (VITAMIN D3) 400 UNIT TABLET (FP) PO SCH (09:25)
[2017-06-15] MEDS: POLYETHYLENE GLYCOL 3350 119 GM BTL PO SCH (09:25)
[2017-06-15] MEDS: AZITHROMYCIN IVPB 500 MG in DEXTROSE 5%-WATER - 250 ML IVPB SCH (11:02)
--- NOTE | 2017-06-15 12:04 | PN ---
Progress Note (short form) - Note Progress Note: PULMONARY CONSULTATION DICTATED 06/15/17 IMP SIRS ? PNEUMONIA ADVANCED COPD + TROPONINS ASHD S/P AWMI S/P STENT HTN HLD THORACIC AORTIC ANEURYSM ANEMIA PLAN IV ANTIBIOTICS PER ID INHALED BRONCHODILATORS O2 CULTURES CHEST CT CE ECHO MONITOR H+H DR MULLER Problem List - Problems (1) SIRS (systemic inflammatory response syndrome) Code(s): R65.10 - SIRS OF NON-INFECTIOUS ORIGIN W/O ACUTE ORGAN DYSFUNCTION (2) Anemia Code(s): D64.9 - ANEMIA, UNSPECIFIED (3) COPD (chronic obstructive pulmonary disease) Code(s): J44.9 - CHRONIC OBSTRUCTIVE PULMONARY DISEASE, UNSPECIFIED (4) HLD (hyperlipidemia) Code(s): E78.5 - HYPERLIPIDEMIA, UNSPECIFIED (5) HTN (hypertension) Code(s): I10 - ESSENTIAL (PRIMARY) HYPERTENSION (6) Sepsis due to pneumonia Code(s): J18.9 - PNEUMONIA, UNSPECIFIED ORGANISM; A41.9 - SEPSIS, UNSPECIFIED ORGANISM (7) Weakness Code(s): R53.1 - WEAKNESS (8) Troponin I above reference range Code(s): R74.8 - ABNORMAL LEVELS OF OTHER SERUM ENZYMES (9) Anemia Code(s): D64.9 - ANEMIA, UNSPECIFIED (10) Anemia Code(s): D64.9 - ANEMIA, UNSPECIFIED (11) Asthma Code(s): J45.909 - UNSPECIFIED ASTHMA, UNCOMPLICATED
--- NOTE | 2017-06-15 12:20 | PN ---
Progress Note (short form) - Note Progress Note: Patient still feels weak today after 1 unit packed cells and hemoglobin up to 9.8 GM. Sill some cough. slleeps a lot. VENETIE so one has to use a loud voice to get his attention. Dr. Gan saw patient today and didn't see a discreet infiltrate on hid CXR so he ordered CT of Chest. We can compare to previous study showing COPD and chronic changes in 2oi6. 1 blood C/S of 2 is pending +. Await ID MD and will most likely need repeat Blood C/S. Tmp 99; WBC normal throughout admission. Iron level low as it has been in the office and he has refused several requests from myself and the GI MD to consider endoscopy. Patient is also S/P RT for Prostate Ca. Seen by Cardiology for elevatd troponins and acute ischemia event. ON Exam: Vital Signs Temp 99.2 F 06/15/17 07:40 Pulse 70 06/15/17 07:40 Resp 18 06/15/17 07:40 BP 96/64 06/15/17 07:40 Pulse Ox 97 06/14/17 21:00 Intake & Output 06/14/17 06/15/17 06/15/17 23:59 11:59 23:59 Intake Total 10 Output Total 350 100 Balance -340 -100 Intake: IV 10 s/l 10 Output: Urine 350 100 Void 350 100 Other: Voiding Method Urinal Alert Pale Chest: Decreased breath sounds and a few wheeze Cor: reg Abd: Soft Ext: No edema Abnormal Lab Results 06/14/17 06/14/17 06/15/17 08:05 12:24 06:40 RBC 3.27 L Hgb 9.8 L D Hct 29.3 L RDW 17.6 H MPV 6.5 L Creatinine Calcium Iron 15 L TIBC 169 L Iron Saturation 9 L Troponin I 2.09 H* 06/15/17 06:40 RBC Hgb Hct RDW MPV Creatinine 0.4 L Calcium 8.0 L Iron TIBC Iron Saturation Troponin I IMP: COPD wih Acute Exacerbation Possible Pneumonia Iron Deficiency anemia; probable GI source ASHD with past OH and new ischemic event. Prostate CA S/P RT Relative hypotension ? Paroxysmal A. Fib 1 + Blood C/S of 2 PLAN: CT Chest Await ID MD F/U lab Sit in chair prn
--- NOTE | 2017-06-15 12:52 | CONS ---
DATE OF CONSULTATION: 06/15/2017 REFERRING PHYSICIAN: Matthias Paez MD HISTORY: The patient is an 82-year-old white male known to me from previous hospitalization. He has a past medical history of COPD, history of hypertension, hyperlipidemia, ASCHD, status post stent, is status post anterior wall PA aortic valvular disease, with a history of tobacco use quit greater than 40 years ago. He was admitted to [facility] and complained of generalized weakness and shortness of breath and chest heaviness for a few days. The patient denied any nausea, vomiting, and diaphoresis. The patient presented to the emergency room with the above. In the ER he was noted to have an incidence of a bronchospasm and he was treated with inhaled bronchodilator with good clinical response. He was also noted to have a fever to 103.3 in the emergency room and he was started on broad-spectrum antibiotics as per Infectious Disease. Chest x-ray did not reveal any definitive acute consolidation without an evidence of increased nodularity bilaterally. Of note, the patient had a CAT scan in April 2016 which revealed extensive COPD changes or bolus changes bilaterally. The patient was transferred to medical telemetry and was admitted for further monitoring. Of note, he was also found to have a troponin level of 2.28 evaluated by Cardiology, see above. The patient denies any chest pain or hemoptysis. He denies any chest pressure. PAST MEDICAL HISTORY: Again this includes ASCHD, status post anterior wall PA, and status post stent, history of aortic valvular disease, COPD, hypertension, hyperlipidemia, and thoracic aortic aneurysm. REVIEW OF SYSTEMS: No orthopnea. Positive weakness. Positive cough productive of green sputum. No chest pain, no palpitations. No abdominal pain. No lower extremity edema. CURRENT MEDICATIONS: Includes Symbicort 160/4.5, Zithromax, Coreg, Colace, MiraLAX, ceftriaxone, robitussin, Lipitor, , Singulair, , aspirin, vitamin C, and vitamin D3. PHYSICAL EXAMINATION: General: The patient is an elderly white male, thin, well developed, awake, very weak, ill appearing in no acute respiratory distress. He is currently afebrile. Vital Signs: Blood pressure is 94/64, respiratory rate is 18, and oxygen saturation is 97% on 2 L. HEENT: Normocephalic, atraumatic. Neck: Supple. Heart: Regular S1 and S2. Chest: Scattered bilateral wheezes. Abdomen: Soft, bowel sounds are positive. Extremities: No cyanosis or edema. LABORATORY DATA: WBC is 5.1, hemoglobin 9.8, hematocrit 29.3, platelet count of 141,000. INR is 1.17. Venous blood gas: pH 7.5, pCO2 is 30, a PO2 of 65. BUN 11, creatinine 0.4, lactate level is 0.9. Initial troponin 2.28, repeat is 2.09. Chest x-ray is as noted earlier. Micro: Influenza screen negative. Blood culture pending organism in 1 bottle. IMPRESSION: 1. Sepsis unknown etiology, rule out possible pneumonia. 2. Advanced chronic obstructive pulmonary disease. 3. Arteriosclerotic coronary artery disease, status post anterior wall myocardial infarction non-ST elevation myocardial infarction. 4. Thoracic aortic aneurysm. 5. Hypertension. 6. Hyperlipidemia. 7. Anemia. PLAN: Broad spectrum antibiotics as per infectious disease, supplemental oxygen inhaled bronchodilators, obtain cultures. Cardiac workup as per Cardiology. CT scan of the chest to further evaluate pulmonary parenchyma to rule out possible pneumonia. Monitor blood and CBC. SUSHIL MULLER M.D. ILEANA/[id number]
--- NOTE | 2017-06-15 16:03 | PN ---
Progress Note, Physician History of Present Illness: patient stable received transfusion patient is showing blood cx positive - Current Medication List Current Medications: Active Medications Albuterol Sulfate (Ventolin 0.083% Nebulizer Soln -) 1 amp NEB Q4H PRN PRN Reason: SHORT OF BREATH/WHEEZING Ascorbic Acid (Vitamin C -) 1,000 mg PO DAILY COUNTS INCLUDE 234 BEDS AT THE [facility] Last Admin: 06/15/17 09:24 Dose: 1,000 mg Aspirin (Asa -) 81 mg PO DAILY COUNTS INCLUDE 234 BEDS AT THE [facility] Last Admin: 06/15/17 09:24 Dose: 81 mg Atorvastatin Calcium (Lipitor -) 80 mg PO HS COUNTS INCLUDE 234 BEDS AT THE [facility] Last Admin: 06/14/17 21:15 Dose: 80 mg Budesonide/Formoterol Fumarate (Symbicort 160/4.5mcg -) 2 puff IH BID COUNTS INCLUDE 234 BEDS AT THE [facility] Last Admin: 06/15/17 09:23 Dose: 2 puff Carvedilol (Coreg -) 3.125 mg PO BID COUNTS INCLUDE 234 BEDS AT THE [facility] Last Admin: 06/15/17 09:24 Dose: Not Given Cholecalciferol (Vitamin D3 -) 800 unit PO DAILY COUNTS INCLUDE 234 BEDS AT THE [facility] Last Admin: 06/15/17 09:25 Dose: 800 unit Docusate Sodium (Colace -) 100 mg PO HS COUNTS INCLUDE 234 BEDS AT THE [facility] Last Admin: 06/14/17 21:15 Dose: 100 mg Ferrous Sulfate (Feosol -) 325 mg PO DAILY COUNTS INCLUDE 234 BEDS AT THE [facility] Last Admin: 06/15/17 09:24 Dose: 325 mg Guaifenesin (Robitussin -) 10 ml PO Q4H PRN PRN Reason: COUGH Last Admin: 06/14/17 18:51 Dose: 10 ml Azithromycin 500 mg/ Dextrose 250 mls @ 250 mls/hr IVPB DAILY COUNTS INCLUDE 234 BEDS AT THE [facility] Last Admin: 06/15/17 11:02 Dose: 250 mls/hr Vancomycin HCl 1,250 mg/ (Dextrose) 250 mls @ 250 mls/hr IVPB DAILY COUNTS INCLUDE 234 BEDS AT THE [facility] PRN Reason: Protocol Leflunomide (Arava -) 20 mg PO DAILY COUNTS INCLUDE 234 BEDS AT THE [facility] Levothyroxine Sodium (Synthroid -) 50 mcg PO DAILY@0700 COUNTS INCLUDE 234 BEDS AT THE [facility] Montelukast Sodium (Singulair -) 10 mg PO HS COUNTS INCLUDE 234 BEDS AT THE [facility] Last Admin: 06/14/17 21:15 Dose: 10 mg Multivitamins/Minerals/Vitamin C (Tab-A-Vit -) 1 tab PO DAILY COUNTS INCLUDE 234 BEDS AT THE [facility] Last Admin: 06/15/17 09:24 Dose: 1 tab Polyethylene Glycol (Miralax (For Daily Use) -) 17 gm PO DAILY [facility] Last Admin: 06/15/17 09:25 Dose: 17 grams - Objective Vital Signs: Vital Signs Temperature 99.4 F 06/15/17 14:20 Pulse Rate 82 06/15/17 14:20 Respiratory Rate 18 06/15/17 14:20 Blood Pressure 106/69 06/15/17 14:20 O2 Sat by Pulse Oximetry (%) 97 06/15/17 09:00 Constitutional: Yes: No Distress, Calm Cardiovascular: Yes: Regular Rate and Rhythm Respiratory: Yes: Regular, CTA Bilaterally Gastrointestinal: Yes: Normal Bowel Sounds, Soft Musculoskeletal: Yes: WNL Extremities: Yes: WNL Neurological: Yes: Alert Labs: CBC, BMP 06/15/17 06:40 06/15/17 06:40 INR, PTT INR 1.17 (0.82-1.09) H 06/14/17 07:00 Assessment/Plan after evaluating the patient i think this multifactorial,patient has some cardiac issue going on and possibilty of pneumonia is also there though i do not see any specific findings in the xray patient has been started on ceftriaxone and zithro and he is stable Problem List - Problems (1) SIRS (systemic inflammatory response syndrome) Code(s): R65.10 - SIRS OF NON-INFECTIOUS ORIGIN W/O ACUTE ORGAN DYSFUNCTION (2) Anemia Code(s): D64.9 - ANEMIA, UNSPECIFIED (3) COPD (chronic obstructive pulmonary disease) Code(s): J44.9 - CHRONIC OBSTRUCTIVE PULMONARY DISEASE, UNSPECIFIED (4) HLD (hyperlipidemia) Code(s): E78.5 - HYPERLIPIDEMIA, UNSPECIFIED (5) HTN (hypertension) Code(s): I10 - ESSENTIAL (PRIMARY) HYPERTENSION (6) Sepsis due to pneumonia Code(s): J18.9 - PNEUMONIA, UNSPECIFIED ORGANISM; A41.9 - SEPSIS, UNSPECIFIED ORGANISM (7) Weakness Code(s): R53.1 - WEAKNESS (8) Troponin I above reference range Code(s): R74.8 - ABNORMAL LEVELS OF OTHER SERUM ENZYMES (9) Anemia Code(s): D64.9 - ANEMIA, UNSPECIFIED (10) Anemia Code(s): D64.9 - ANEMIA, UNSPECIFIED (11) Asthma Code(s): J45.909 - UNSPECIFIED ASTHMA, UNCOMPLICATED plan blood cx result noted stopped ceftriaxone switched to vanco will await identification of the organism
[2017-06-15] MEDS ORDERED: PT OWN MED DRAWER 7, Y5N ONE ×2 (17:33→20:13)
[2017-06-15] MEDS: VANCOMYCIN 1,250 MG in DEXTROSE 5%-WATER - 250 ML IVPB SCH ×2 (17:34→20:22)
--- NOTE | 2017-06-15 18:12 | PN ---
Progress Note (short form) - Note Progress Note: Chief Complaint: malaise, weakness History of Present Illness: patient states he feels better. no sob, cp, palps, dizziness. increased energy and appetite. still with cough productive of yellow sputum. Did not get out of bed today. Current Medications Albuterol Sulfate (Ventolin 0.083% Nebulizer Soln -) 1 amp NEB Q4H PRN PRN Reason: SHORT OF BREATH/WHEEZING Ascorbic Acid (Vitamin C -) 1,000 mg PO DAILY [facility] Last Admin: 06/15/17 09:24 Dose: 1,000 mg Aspirin (Asa -) 81 mg PO DAILY [facility] Last Admin: 06/15/17 09:24 Dose: 81 mg Atorvastatin Calcium (Lipitor -) 80 mg PO HS [facility] Last Admin: 06/14/17 21:15 Dose: 80 mg Budesonide/Formoterol Fumarate (Symbicort 160/4.5mcg -) 2 puff IH BID [facility] Last Admin: 06/15/17 09:23 Dose: 2 puff Carvedilol (Coreg -) 3.125 mg PO BID [facility] Last Admin: 06/15/17 09:24 Dose: Not Given Cholecalciferol (Vitamin D3 -) 800 unit PO DAILY [facility] Last Admin: 06/15/17 09:25 Dose: 800 unit Docusate Sodium (Colace -) 100 mg PO HS [facility] Last Admin: 06/14/17 21:15 Dose: 100 mg Ferrous Sulfate (Feosol -) 325 mg PO DAILY [facility] Last Admin: 06/15/17 09:24 Dose: 325 mg Guaifenesin (Robitussin -) 10 ml PO Q4H PRN PRN Reason: COUGH Last Admin: 06/14/17 18:51 Dose: 10 ml Azithromycin 500 mg/ Dextrose 250 mls @ 250 mls/hr IVPB DAILY [facility] Last Admin: 06/15/17 11:02 Dose: 250 mls/hr Vancomycin HCl 1,250 mg/ (Dextrose) 250 mls @ 250 mls/hr IVPB DAILY [facility] PRN Reason: Protocol Last Admin: 06/15/17 17:34 Dose: Not Given Leflunomide (Arava -) 20 mg PO DAILY [facility] Levothyroxine Sodium (Synthroid -) 50 mcg PO DAILY@0700 [facility] Montelukast Sodium (Singulair -) 10 mg PO [facility] Last Admin: 06/14/17 21:15 Dose: 10 mg Multivitamins/Minerals/Vitamin C (Tab-A-Vit -) 1 tab PO DAILY [facility] Last Admin: 06/15/17 09:24 Dose: 1 tab Polyethylene Glycol (Miralax (For Daily Use) -) 17 gm PO DAILY [facility] Last Admin: 06/15/17 09:25 Dose: 17 grams Vital Signs - 24 hr 06/14/17 06/14/17 06/15/17 21:00 22:00 02:00 Temperature 99.6 F 98.6 F Pulse Rate 97 H 92 H Respiratory 20 20 Rate Blood Pressure 107/55 98/57 O2 Sat by Pulse 97 Oximetry (%) 06/15/17 06/15/17 06/15/17 06:00 07:40 09:00 Temperature 99 F 99.2 F Pulse Rate 94 H 70 Respiratory 20 18 Rate Blood Pressure 95/65 96/64 O2 Sat by Pulse 97 Oximetry (%) 06/15/17 14:20 Temperature 99.4 F Pulse Rate 82 Respiratory 18 Rate Blood Pressure 106/69 O2 Sat by Pulse Oximetry (%) Intake & Output 06/13/17 06/14/17 06/15/17 06/16/17 07:59 07:59 07:59 07:59 Intake Total 10 550 Output Total 200 450 Balance -200 -440 550 Weight 119 lb 6.4 oz Constitutional: Yes: Well Nourished, No Distress Eyes: No: Sclera Icterus HENT: No: Nasal Congestion Neck: No: Decreased ROM Respiratory: Yes: exp wheezes. No: Accessory Muscle Use, Rales, Wheezes Gastrointestinal: Yes: Normal Bowel Sounds. No: Distention, Hepatomegaly, Palpable Mass, Tenderness Cardiovascular: Yes: Regular Rate and Rhythm JVD: No Carotid Bruit: No PMI: Non-Displaced Heart Sounds: Yes: S1, S2. No: Gallop Murmur: Yes: Systolic Murmur (2/6 early VICKY rusb). No: Diastolic Murmur Musculoskeletal: Yes: Other (No kyphosis) Extremities: No: Cool, Cyanosis Edema: No Peripheral Pulses: 2+ Left Carotid, 2+ Right Carotid, 2+ Left Doralis Pedis, 2+ Right Dorsalis Pedis Integumentary: No: Jaundice Neurological: Yes: Alert. No: Seizure Psychiatric: No: Agitated - Other Data Labs, Other Data: CBC, BMP 06/15/17 06:40 06/15/17 06:40 tele: NSR with frequent pac's, rare pvc's Assessment/Plan Repeat echo pending. Echo 03/07: nl LV, nl RV, mild AI, mild-mod , ao root 4.[address] 05/[address] chest 05/06: severe copd changes, 4.2 cm ascending aorta ECG 06/13: very poor baseline. ? Afib, vs sinus with freq APCs. R-bonds QRS axis new vs prior. no path Q's. nonsp TWAs vs 12/2006 ECG 06/14: baseline wander artifact present--no suspected ST elevations. NSR with APCs, intermittent inc RBBB with associated repol abn.s; R-bonds QRS axis CXR: marked diffuse interstitial markings, no vasc redistribution, no alveolar infiltrates, no effusion (L base not well seen) 82 y/o former smoker with h/o CAD, h/o AWMI, HTN, HPL, thoracic aorta aneurysm, AV disease, copd who p/w generalized weakness. generalized weakness, fever (103.3 in ER): -infectious w/u and tx per hospitalist -lactate normal -soft systolic murmur on exam, likely related to mild-mod noted on 03/07 office echo. -for rpt echo here NSTEMI, h/o CAD (AWMI s/p PCI): -pt with AW STEMI 2011 s/p PCI to mLAD, no residual -no angina or stress testing recently -preserved LVEF -here with nonspecific sx's for several days, including cp and sob (? timing of onset of angina sx's). -trop 1.9-->2.2-->2.0 -? Type II [place], vs Type I [place] triggered by acute infection. -given pt clinically very stable and no ongoing sx's, and he has signif anemia of ? etiology, will defer heparin at present. low threshold to add UFH if anginal sx's. -cont home meds: coreg 3.125 bid, asa -increased atorva to 80 here, at least short term for max anti-[place] prevention, then will likely decr dose as outpt in several weeks -ecg's with signif motion artifact present, no ischemic ST changes noted--f/u ECG this am -right QRS axis present on ECG, ? due to copd--no recent priors for comparison. will check office chart. -no hypoxia here, doubt PE. -echo for LV wall motion/EF and RV size/fxn --> pending. ? afib: -initial ECG with very poor baseline--cannot exclude Afib (vs sinus with APCs -cont tele monitoring -defer AC unless definite AFib seen (kwaku given acute anemia req PRBCs) - lyte repletion prn anemia: -initial hgb 7.8, s/p PRBCs--up to 8.4 -baseline hgb 9 in 08/07, was 8.9 on 06/11 office labs -w/u per pmd -guaiac negative. cont ASA for now SOB: -? anginal sx at home, ? sec to anemia, known chronic copd -CXR reviewed, appears c/w chronic interstitial changes related to copd; no chf pattern - CT chest pending -bnp 1800, no priors -clinically appears euvolemic--no diuresis indicated copd: -per pmd HTN: -bp running 90s-110s at present -cont carvedilol for now, low threshold to stop it if bp dips further aorta aneurysm: -stable size 4.2-4.5 cm ao root/ascending on recent imaging -routine bp mgmt and imaging surveillance as doing AV dz: -mild to moderate (03/07 study). repeating echo as above.
[2017-06-15] MEDS: ATORVASTATIN CA 80 MG TABLET (FP) PO SCH (21:06)
[2017-06-15] MEDS: DOCUSATE SODIUM 100 MG CAPSULE (FP) PO SCH (21:07)
[2017-06-15] MEDS: MONTELUKAST NA 10 MG TABLET PO SCH (21:07)
[2017-06-15] MEDS: ALBUTEROL SO4 0.083% IH SOL 2.5 MG/3 ML VIAL.NEB. NEB PRN (22:20)
[2017-06-16] MEDS: LEVOTHYROXINE NA 50 MCG TABLET (FP) PO SCH (06:20)
[2017-06-16 07:48] LABS: BASO % 0.4 % (0-2.0); EOS % 7.4 % (0-4.5); HEMATOCRIT 29.8 % (35.4-49); HEMOGLOBIN 9.6 GM/dL (11.7-16.9); LYMPH % 17.9 % (8-40); MCH 28.7 pg (25.7-33.7); MCHC 32.3 g/dl (32.0-35.9); MEAN PLT VOLUME 6.8 fl (7.5-11.1); MONO % 10.8 % (3.8-10.2); NEUT % 63.5 % (42.8-82.8); PLATELET COUNT 127 K/MM3 (134-434); RBC 3.35 M/mm3 (4.00-5.60); RDW 17.2 % (11.9-15.9); WHITE BLOOD COUNT 4.4 K/mm3 (4.0-10.0)
[2017-06-16 08:31] LABS: ANION GAP 7 (8-16); BLOOD UREA NITROGEN 11 mg/dL (7-18); CALCIUM 7.7 mg/dL (8.5-10.1); CHLORIDE 101 mmol/L (98-107); CO2 27 mmol/L (21-32); GLUCOSE,RANDOM 89 mg/dL (74-106); PHOSPHOROUS 3.1 mg/dL (2.5-4.9); POTASSIUM 3.7 mmol/L (3.5-5.1); SODIUM 135 mmol/L (136-145)
[2017-06-16 08:42] LABS: CREATININE 0.3 mg/dL (0.7-1.3)
--- NOTE | 2017-06-16 08:59 | PN ---
Progress Note (short form) - Note Progress Note: Patient not sleeping well. Less coughing and had CT Chest yesterday but report pending. ID MD awaiting identification of 1 Blood C/S that is +. Await his decision Re: repeat Blood C/S. Hb stable at 9.6GM Appetite fair Seen by Cardiology and Pulmonary MD's. ON Exam: Vital Signs Temp 98.1 F 06/16/17 05:47 Pulse 87 06/16/17 08:27 Resp 18 06/16/17 08:27 BP 96/71 06/16/17 08:27 Pulse Ox 97 06/15/17 20:33 Intake & Output 06/15/17 06/15/17 06/16/17 11:59 23:59 11:59 Intake Total 810 10 Output Total 100 200 375 Balance -100 610 -365 Intake: IV 10 s/l 10 IVPB 810 Output: Urine 100 200 375 Void 100 200 375 Other: Voiding Method Urinal Urinal Urinal Bowel Movement Yes # Bowel Movements 1 Alert Pale Chest: Decreased sounds but less wheezes Cor Reg Abd: Soft Ext: No edema Abnormal Lab Results 06/16/17 06/16/17 05:05 05:05 RBC 3.35 L Hgb 9.6 L Hct 29.8 L RDW 17.2 H Plt Count 127 L MPV 6.8 L Monocytes % 10.8 H Eosinophils % 7.4 H D Sodium 135 L Anion Gap 7 L Creatinine 0.3 L D Calcium 7.7 L IMP: COPD with acute exacerbation Possible Pneumonia Iron Def Anemia RAMYA Hx: [place] Acute Cardiac Ischemia TAA Prostate CA with RT Plan: Await CT Chest Await ID of 1 + Blood Culture F/U lab PT today. Probable SNF post discharge Pt. refuses endoscopy
[2017-06-16] MEDS ORDERED: PT OWN MED DRAWER 7, Y5N ONE (09:48)
[2017-06-16] MEDS: LEFLUNOMIDE 10 MG TABLET PO SCH (10:15)
[2017-06-16] MEDS: CARVEDILOL 3.125 MG TABLET (FP) PO SCH ×2 (10:16→21:36)
[2017-06-16] MEDS: FERROUS SO4 325 MG TABLET (FP) PO SCH (10:16)
[2017-06-16] MEDS: MULTIVITAMINS (DAILY MVI) TABLET (FP) PO SCH (10:16)
[2017-06-16] MEDS: ASPIRIN 81 MG CHEWABLE TABLETS PO SCH (10:16)
[2017-06-16] MEDS: CHOLECALCIFEROL (VITAMIN D3) 400 UNIT TABLET (FP) PO SCH (10:17)
[2017-06-16] MEDS: ASCORBIC ACID 500 MG TABLET (FP) PO SCH (10:17)
[2017-06-16] MEDS: VANCOMYCIN 1,250 MG in DEXTROSE 5%-WATER - 250 ML IVPB SCH (10:18)
[2017-06-16] MEDS: AZITHROMYCIN IVPB 500 MG in DEXTROSE 5%-WATER - 250 ML IVPB SCH (10:18)
[2017-06-16] MEDS: POLYETHYLENE GLYCOL 3350 119 GM BTL PO SCH (10:42)
[2017-06-16] MEDS: BUDESONIDE/FORMETEROL FUMARATE 160/4.5 mcg INHALER IH SCH (10:42)
--- NOTE | 2017-06-16 11:02 | PN ---
Progress Note, Physician History of Present Illness: pulmonary alert,no distress,sob,-congestion,+ cough - Current Medication List Current Medications: Active Medications Albuterol Sulfate (Ventolin 0.083% Nebulizer Soln -) 1 amp NEB Q4H PRN PRN Reason: SHORT OF BREATH/WHEEZING Last Admin: 06/15/17 22:20 Dose: 1 amp Ascorbic Acid (Vitamin C -) 1,000 mg PO DAILY [facility] Last Admin: 06/16/17 10:17 Dose: 1,000 mg Aspirin (Asa -) 81 mg PO DAILY [facility] Last Admin: 06/16/17 10:16 Dose: 81 mg Atorvastatin Calcium (Lipitor -) 80 mg PO HS [facility] Last Admin: 06/15/17 21:06 Dose: 80 mg Budesonide/Formoterol Fumarate (Symbicort 160/4.5mcg -) 2 puff IH BID [facility] Last Admin: 06/16/17 10:42 Dose: 2 puff Carvedilol (Coreg -) 3.125 mg PO BID [facility] Last Admin: 06/16/17 10:16 Dose: Not Given Cholecalciferol (Vitamin D3 -) 800 unit PO DAILY [facility] Last Admin: 06/16/17 10:17 Dose: 800 unit Docusate Sodium (Colace -) 100 mg PO HS [facility] Last Admin: 06/15/17 21:07 Dose: 100 mg Ferrous Sulfate (Feosol -) 325 mg PO DAILY [facility] Last Admin: 06/16/17 10:16 Dose: 325 mg Guaifenesin (Robitussin -) 10 ml PO Q4H PRN PRN Reason: COUGH Last Admin: 06/14/17 18:51 Dose: 10 ml Azithromycin 500 mg/ Dextrose 250 mls @ 250 mls/hr IVPB DAILY [facility] Last Admin: 06/16/17 10:18 Dose: 250 mls/hr Vancomycin HCl 1,250 mg/ (Dextrose) 250 mls @ 250 mls/hr IVPB DAILY [facility] PRN Reason: Protocol Last Admin: 06/16/17 10:18 Dose: 250 mls/hr Leflunomide (Arava -) 20 mg PO DAILY [facility] Last Admin: 06/16/17 10:15 Dose: 20 mg Levothyroxine Sodium (Synthroid -) 50 mcg PO DAILY@0700 [facility] Last Admin: 06/16/17 06:20 Dose: 50 mcg Montelukast Sodium (Singulair -) 10 mg PO HS [facility] Last Admin: 06/15/17 21:07 Dose: 10 mg Multivitamins/Minerals/Vitamin C (Tab-A-Vit -) 1 tab PO DAILY [facility] Last Admin: 06/16/17 10:16 Dose: 1 tab Polyethylene Glycol (Miralax (For Daily Use) -) 17 gm PO DAILY [facility] Last Admin: 06/16/17 10:42 Dose: Not Given - Objective Vital Signs: Vital Signs Temperature 98.1 F 06/16/17 05:47 Pulse Rate 87 06/16/17 08:27 Respiratory Rate 18 06/16/17 08:27 Blood Pressure 96/71 06/16/17 08:27 O2 Sat by Pulse Oximetry (%) 97 06/15/17 20:33 Constitutional: Yes: Well Nourished, Calm Eyes: Yes: WNL HENT: Yes: WNL Neck: Yes: WNL Cardiovascular: Yes: Regular Rate and Rhythm, S1, S2 Respiratory: Yes: Wheezes (few scattered wheezes) Gastrointestinal: Yes: Normal Bowel Sounds, Soft Extremities: Yes: WNL Edema: No Labs: CBC, BMP 06/16/17 05:05 06/16/17 05:05 INR, PTT INR 1.17 (0.82-1.09) H 06/14/17 07:00 - ....Imaging Cat Scan: Report Reviewed, Image Reviewed (extensive copd/ILD,increasing size thoracic aneurysm) Problem List - Problems (1) SIRS (systemic inflammatory response syndrome) Code(s): R65.10 - SIRS OF NON-INFECTIOUS ORIGIN W/O ACUTE ORGAN DYSFUNCTION (2) Anemia Code(s): D64.9 - ANEMIA, UNSPECIFIED (3) COPD (chronic obstructive pulmonary disease) Code(s): J44.9 - CHRONIC OBSTRUCTIVE PULMONARY DISEASE, UNSPECIFIED (4) HLD (hyperlipidemia) Code(s): E78.5 - HYPERLIPIDEMIA, UNSPECIFIED (5) HTN (hypertension) Code(s): I10 - ESSENTIAL (PRIMARY) HYPERTENSION (6) Sepsis due to pneumonia Code(s): J18.9 - PNEUMONIA, UNSPECIFIED ORGANISM; A41.9 - SEPSIS, UNSPECIFIED ORGANISM (7) Weakness Code(s): R53.1 - WEAKNESS (8) Troponin I above reference range Code(s): R74.8 - ABNORMAL LEVELS OF OTHER SERUM ENZYMES (9) Anemia Code(s): D64.9 - ANEMIA, UNSPECIFIED (10) Anemia Code(s): D64.9 - ANEMIA, UNSPECIFIED (11) Asthma Code(s): J45.909 - UNSPECIFIED ASTHMA, UNCOMPLICATED Assessment/Plan IMP SIRS ? 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 Problem List - Problems (1) SIRS (systemic inflammatory response syndrome) Code(s): R65.10 - SIRS OF NON-INFECTIOUS ORIGIN W/O ACUTE ORGAN DYSFUNCTION (2) Anemia Code(s): D64.9 - ANEMIA, UNSPECIFIED (3) COPD (chronic obstructive pulmonary disease) Code(s): J44.9 - CHRONIC OBSTRUCTIVE PULMONARY DISEASE, UNSPECIFIED (4) HLD (hyperlipidemia) Code(s): E78.5 - HYPERLIPIDEMIA, UNSPECIFIED (5) HTN (hypertension) Code(s): I10 - ESSENTIAL (PRIMARY) HYPERTENSION (6) Sepsis due to pneumonia Code(s): J18.9 - PNEUMONIA, UNSPECIFIED ORGANISM; A41.9 - SEPSIS, UNSPECIFIED ORGANISM (7) Weakness Code(s): R53.1 - WEAKNESS (8) Troponin I above reference range Code(s): R74.8 - ABNORMAL LEVELS OF OTHER SERUM ENZYMES (9) Anemia Code(s): D64.9 - ANEMIA, UNSPECIFIED (10) Anemia Code(s): D64.9 - ANEMIA, UNSPECIFIED (11) Asthma Code(s): J45.909 - UNSPECIFIED ASTHMA, UNCOMPLICATED
--- NOTE | 2017-06-16 11:33 | PN ---
Progress Note (short form) - Note Progress Note: Chief Complaint: malaise, weakness History of Present Illness: no sob, cp, palps, dizziness. still with cough productive of yellow sputum. Current Medications Generic Name Dose Route Start Last Admin Trade Name Freq PRN Reason Stop Dose Admin Albuterol Sulfate 1 amp 06/15/17 12:08 06/15/17 22:20 Ventolin 0.083% Nebulizer Soln - NEB 1 amp Q4H PRN Administration SHORT OF BREATH/WHEEZING Ascorbic Acid 1,000 mg 06/14/17 10:00 06/16/17 10:17 Vitamin C - PO 1,000 mg DAILY [facility] Administration Aspirin 81 mg 06/14/17 10:00 06/16/17 10:16 Asa - PO 81 mg DAILY [facility] Administration Atorvastatin Calcium 80 mg 06/14/17 22:00 06/15/17 21:06 Lipitor - PO 80 mg HS [facility] Administration Budesonide/Formoterol Fumarate 2 puff 06/14/17 10:00 06/16/17 10:42 Symbicort 160/4.5mcg - IH 2 puff BID [facility] Administration Carvedilol 3.125 mg 06/14/17 22:00 06/16/17 10:16 Coreg - PO Not Given BID [facility] Cholecalciferol 800 unit 06/14/17 10:00 06/16/17 10:17 Vitamin D3 - PO 800 unit DAILY [facility] Administration Docusate Sodium 100 mg 06/14/17 22:00 06/15/17 21:07 Colace - PO 100 mg HS [facility] Administration Ferrous Sulfate 325 mg 06/14/17 10:00 06/16/17 10:16 Feosol - PO 325 mg DAILY [facility] Administration Guaifenesin 10 ml 06/14/17 13:26 06/14/17 18:51 Robitussin - PO 10 ml Q4H PRN Administration COUGH Azithromycin 500 mg/ Dextrose 250 mls @ 250 mls/hr 06/14/17 10:00 06/16/17 10 :18 IVPB 250 mls/hr DAILY [facility] Administration Vancomycin HCl 1,250 mg/ 250 mls @ 250 mls/hr 06/15/17 16:00 06/16/17 10:18 Dextrose IVPB 250 mls/hr DAILY [facility] Administration Protocol Leflunomide 20 mg 06/16/17 10:00 06/16/17 10:15 Arava - PO 20 mg DAILY [facility] Administration Levothyroxine Sodium 50 mcg 06/16/17 07:00 06/16/17 06:20 Synthroid - PO 50 mcg DAILY@0700 [facility] Administration Montelukast Sodium 10 mg 06/14/17 22:00 06/15/17 21:07 Singulair - PO 10 mg HS [facility] Administration Multivitamins/Minerals/Vitamin C 1 tab 06/14/17 10:00 06/16/17 10:16 Tab-A-Vit - PO 1 tab DAILY [facility] Administration Polyethylene Glycol 17 gm 06/15/17 10:00 06/16/17 10:42 Miralax (For Daily Use) - PO Not Given DAILY [facility] Vital Signs Period Temp Pulse Resp BP Sys/Skinner Pulse Ox Last 24 Hr 97.7 F-99.4 F 82-98 18-20 96-108/56-74 97 Constitutional: Yes: No Distress Eyes: No: Sclera Icterus Respiratory: cta bl nl eff No: Accessory Muscle Use, Rales, Wheezes Gastrointestinal: Yes: Normal Bowel Sounds. No: Distention, Hepatomegaly, Palpable Mass, Tenderness Cardiovascular: Yes: Regular Rate and Rhythm JVD: No Heart Sounds: Yes: S1, S2. No: Gallop Murmur: Yes: Systolic Murmur (2/6 early VICKY rusb). No: Diastolic Murmur Extremities: No: Cool, Cyanosis Edema: No Peripheral Pulses: 2+ Left Carotid, 2+ Right Carotid, 2+ Left Doralis Pedis, 2+ Right Dorsalis Pedis Integumentary: No: Jaundice Neurological: Yes: Alert. No: Seizure Psychiatric: No: Agitated - Other Data Labs, Other Data: CBC, BMP 06/16/17 05:05 06/16/17 05:05 tele: NSR with frequent pac's, rare pvc's Echo 03/07: nl LV, nl RV, mild AI, mild-mod , ao root 4.5 cm echo 05/2017: low nl lvef, nl rv, mild tr, mod ar, dilated ao root repeat chest ct 05/[address] chest 05/06: severe copd changes, 4.2 cm ascending aorta ECG 06/13: very poor baseline. ? Afib, vs sinus with freq APCs. R-bonds QRS axis new vs prior. no path Q's. nonsp TWAs vs 12/2006 ECG 06/14: baseline wander artifact present--no suspected ST elevations. NSR with APCs, intermittent inc RBBB with associated repol abn.s; R-bonds QRS axis CXR: marked diffuse interstitial markings, no vasc redistribution, no alveolar infiltrates, no effusion (L base not well seen) a/p: 82 y/o former smoker with h/o CAD, h/o AWMI, HTN, HPL, thoracic aorta aneurysm, AV disease, copd who p/w generalized weakness. generalized weakness, fever (103.3 in ER): -infectious w/u and tx per hospitalist/ID NSTEMI, h/o CAD (AWMI s/p PCI): -pt with AW STEMI 2010 s/p PCI to mLAD, no residual -no angina or stress testing recently -preserved LVEF -here with nonspecific sx's for several days, including cp and sob (? timing of onset of angina sx's). -trop 1.9-->2.2-->2.0 -? Type II [place], vs Type I [place] triggered by acute infection. -given pt clinically very stable and no ongoing sx's, and he has signif anemia of ? etiology, will defer heparin at present. low threshold to add UFH if anginal sx's. -cont home meds: coreg 3.125 bid, asa -increased atorva to 80 here, at least short term for max anti-[place] prevention, then will likely decr dose as outpt in several weeks -ecg's with signif motion artifact present, no ischemic ST changes noted--f/u ECG this am -right QRS axis present on ECG, ? due to copd--no recent priors for comparison. will check office chart. -no hypoxia here, doubt PE. ? afib: -initial ECG with very poor baseline--cannot exclude Afib (vs sinus with APCs -cont tele monitoring -defer AC unless definite AFib seen (kwaku given acute anemia req PRBCs) anemia: -initial hgb 7.8, s/p PRBCs--up to 8.4 -baseline hgb 9 in 08/07, was 8.9 on 06/11 office labs -w/u per pmd -guaiac negative. cont ASA for now SOB: -? anginal sx at home, ? sec to anemia, known chronic copd -CXR reviewed, appears c/w chronic interstitial changes related to copd; no chf pattern - CT chest pending -bnp 1800, no priors -clinically appears euvolemic--no diuresis indicated copd: -per pmd HTN: -bp running 90s-110s at present -cont carvedilol for now, low threshold to stop it if bp dips further aorta aneurysm: -stable size 4.2-4.5 cm ao root/ascending on recent imaging -routine bp mgmt and imaging surveillance as doing AV dz: -mild to moderate (03/07 study).
--- NOTE | 2017-06-16 17:51 | PN ---
Progress Note, Physician History of Present Illness: patient stable still with cough and yellow sputum cx result noted think it is a contaminant repeat cx ordered sadie patient is a bit congested also - Current Medication List Current Medications: Active Medications Albuterol Sulfate (Ventolin 0.083% Nebulizer Soln -) 1 amp NEB Q4H PRN PRN Reason: SHORT OF BREATH/WHEEZING Last Admin: 06/15/17 22:20 Dose: 1 amp Amoxicillin/Clavulanate Potassium (Augmentin - 500mg Tablet) 1 tab PO BID@0800, 1730 [facility] Ascorbic Acid (Vitamin C -) 1,000 mg PO DAILY [facility] Last Admin: 06/16/17 10:17 Dose: 1,000 mg Aspirin (Asa -) 81 mg PO DAILY [facility] Last Admin: 06/16/17 10:16 Dose: 81 mg Atorvastatin Calcium (Lipitor -) 80 mg PO HS [facility] Last Admin: 06/15/17 21:06 Dose: 80 mg Azithromycin (Zithromax -) 500 mg PO DAILY [facility] Budesonide/Formoterol Fumarate (Symbicort 160/4.5mcg -) 2 puff IH BID [facility] Last Admin: 06/16/17 10:42 Dose: 2 puff Carvedilol (Coreg -) 3.125 mg PO BID [facility] Last Admin: 06/16/17 10:16 Dose: Not Given Cholecalciferol (Vitamin D3 -) 800 unit PO DAILY [facility] Last Admin: 06/16/17 10:17 Dose: 800 unit Docusate Sodium (Colace -) 100 mg PO [facility] Last Admin: 06/15/17 21:07 Dose: 100 mg Ferrous Sulfate (Feosol -) 325 mg PO DAILY [facility] Last Admin: 06/16/17 10:16 Dose: 325 mg Guaifenesin (Robitussin -) 10 ml PO Q4H PRN PRN Reason: COUGH Last Admin: 06/14/17 18:51 Dose: 10 ml Leflunomide (Arava -) 20 mg PO DAILY [facility] Last Admin: 06/16/17 10:15 Dose: 20 mg Levothyroxine Sodium (Synthroid -) 50 mcg PO DAILY@0700 [facility] Last Admin: 06/16/17 06:20 Dose: 50 mcg Montelukast Sodium (Singulair -) 10 mg PO [facility] Last Admin: 06/15/17 21:07 Dose: 10 mg Multivitamins/Minerals/Vitamin C (Tab-A-Vit -) 1 tab PO DAILY [facility] Last Admin: 06/16/17 10:16 Dose: 1 tab Polyethylene Glycol (Miralax (For Daily Use) -) 17 gm PO DAILY [facility] Last Admin: 06/16/17 10:42 Dose: Not Given - Objective Vital Signs: Vital Signs Temperature 98.1 F 06/16/17 14:00 Pulse Rate 92 H 06/16/17 14:00 Respiratory Rate 18 06/16/17 14:00 Blood Pressure 96/62 06/16/17 14:00 O2 Sat by Pulse Oximetry (%) 98 06/16/17 09:00 Constitutional: Yes: No Distress, Calm Cardiovascular: Yes: Pulse Irregular, S1, S2 Respiratory: Yes: Regular, Poor Air Entry, Rhonchi Gastrointestinal: Yes: Normal Bowel Sounds, Soft Musculoskeletal: Yes: WNL Extremities: Yes: WNL Neurological: Yes: Alert Psychiatric: Yes: Alert Labs: CBC, BMP 06/16/17 05:05 06/16/17 05:05 INR, PTT INR 1.17 (0.82-1.09) H 06/14/17 07:00 Assessment/Plan after evaluating the patient i think this multifactorial,patient has some cardiac issue going on and possibilty of pneumonia is also there though i do not see any specific findings in the xray patient has been started on ceftriaxone and zithro and he is stable Problem List - Problems (1) SIRS (systemic inflammatory response syndrome) Code(s): R65.10 - SIRS OF NON-INFECTIOUS ORIGIN W/O ACUTE ORGAN DYSFUNCTION (2) Anemia Code(s): D64.9 - ANEMIA, UNSPECIFIED (3) COPD (chronic obstructive pulmonary disease) Code(s): J44.9 - CHRONIC OBSTRUCTIVE PULMONARY DISEASE, UNSPECIFIED (4) HLD (hyperlipidemia) Code(s): E78.5 - HYPERLIPIDEMIA, UNSPECIFIED (5) HTN (hypertension) Code(s): I10 - ESSENTIAL (PRIMARY) HYPERTENSION (6) Sepsis due to pneumonia Code(s): J18.9 - PNEUMONIA, UNSPECIFIED ORGANISM; A41.9 - SEPSIS, UNSPECIFIED ORGANISM (7) Weakness Code(s): R53.1 - WEAKNESS (8) Troponin I above reference range Code(s): R74.8 - ABNORMAL LEVELS OF OTHER SERUM ENZYMES (9) Anemia Code(s): D64.9 - ANEMIA, UNSPECIFIED (10) Anemia Code(s): D64.9 - ANEMIA, UNSPECIFIED (11) Asthma Code(s): J45.909 - UNSPECIFIED ASTHMA, UNCOMPLICATED plan will switch abx to oral continue watch await repeat blood cx results rest as per cardio and primary
[2017-06-16] MEDS: DOCUSATE SODIUM 100 MG CAPSULE (FP) PO SCH (21:35)
[2017-06-16] MEDS: ATORVASTATIN CA 80 MG TABLET (FP) PO SCH (21:35)
[2017-06-16] MEDS: MONTELUKAST NA 10 MG TABLET PO SCH (21:35)
[2017-06-17] MEDS: BUDESONIDE/FORMETEROL FUMARATE 160/4.5 mcg INHALER IH SCH ×3 (00:09→21:20)
[2017-06-17] MEDS: LEVOTHYROXINE NA 50 MCG TABLET (FP) PO SCH (06:06)
[2017-06-17 07:24] LABS: BASO % 0.5 % (0-2.0); EOS % 8.3 % (0-4.5); HEMATOCRIT 29.9 % (35.4-49); HEMOGLOBIN 9.8 GM/dL (11.7-16.9); LYMPH % 19.8 % (8-40); MCH 29.3 pg (25.7-33.7); MCHC 32.7 g/dl (32.0-35.9); MEAN CELL VOLUME 89.6 fl (80-96); MONO % 11.5 % (3.8-10.2); NEUT % 59.9 % (42.8-82.8); PLATELET COUNT 134 K/MM3 (134-434); RBC 3.33 M/mm3 (4.00-5.60); RDW 17.1 % (11.9-15.9); WHITE BLOOD COUNT 4.2 K/mm3 (4.0-10.0)
[2017-06-17 07:26] LABS: ANION GAP 7 (8-16); BLOOD UREA NITROGEN 10 mg/dL (7-18); CALCIUM 7.7 mg/dL (8.5-10.1); CHLORIDE 100 mmol/L (98-107); CO2 28 mmol/L (21-32); CREATININE 0.4 mg/dL (0.7-1.3); GLUCOSE,RANDOM 94 mg/dL (74-106); POTASSIUM 3.8 mmol/L (3.5-5.1); SODIUM 135 mmol/L (136-145)
--- NOTE | 2017-06-17 08:56 | PN ---
Progress Note (short form) - Note Progress Note: Patient still coughing. CT Chest shows old chronic changes wih new effusions R> L. Low grade temps and now on PO antibiotics as per Dr. Parnell. Hb stable at 9.8GM. Was able to march at bedside yesterday with PT. Eating a little more. On Exam: Vital Signs Temp 97.8 F 06/17/17 05:00 Pulse 90 06/17/17 05:00 Resp 18 06/17/17 05:00 BP 92/64 06/17/17 05:00 Pulse Ox 97 06/16/17 20:42 Intake & Output 06/16/17 06/16/17 06/17/17 11:59 23:59 11:59 Intake Total 130 770 0 Output Total 775 625 100 Balance -645 145 -100 Intake: IV 10 30 0 Saline Lock 10 30 0 IVPB 500 Oral 120 240 Output: Urine 775 625 100 Void 775 625 100 Other: Voiding Method Urinal Urinal Urinal Alert pale Alert Chest:Decreased sounds but less wheezing Cor: Occ irregular beats Abd: Nontender Ext; No edema Abnormal Lab Results 06/16/17 06/17/17 06/17/17 05:05 05:05 05:05 RBC 3.33 L Hgb 9.8 L Hct 29.9 L RDW 17.1 H MPV 7.0 L Monocytes % 11.5 H Eosinophils % 8.3 H Sodium 135 L Anion Gap 7 L Creatinine 0.4 L D Calcium 7.7 L Free T3 1.5 L IMP: COPD with Acute Exacerbations Bilateral pleural effusions ASHD S/P [place] and new ischemic event Iron Deficiency anemia Hypothroidism Headache ? cause Plan: 1 dose Lasix IV F/U lab Consult Vascular MD re Thoracic Aortic Aneurysm although not at critical level Tylenol prn for headache; if no relief ? CT Brain
[2017-06-17] MEDS ORDERED: FUROSEMIDE 40 MG/4 ML INJECTABLE VIAL IVPUSH ONE (09:15)
[2017-06-17] MEDS ORDERED: ACETAMINOPHEN 325 MG TABLET (FP) PO PRN (09:15)
[2017-06-17] MEDS ORDERED: PT OWN MED DRAWER 7, Y5N ONE (09:38)
[2017-06-17] MEDS: RANITIDINE HCL 150 MG TABLET (FP) PO SCH ×2 (09:40→21:20)
[2017-06-17] MEDS: AZITHROMYCIN 250 MG TABLET PO SCH (09:42)
[2017-06-17] MEDS: MULTIVITAMINS (DAILY MVI) TABLET (FP) PO SCH (09:43)
[2017-06-17] MEDS: ASPIRIN 81 MG CHEWABLE TABLETS PO SCH (09:43)
[2017-06-17] MEDS: CARVEDILOL 3.125 MG TABLET (FP) PO SCH ×2 (09:43→21:20)
[2017-06-17] MEDS: predniSONE 20 MG TABLET (UD) PO SCH (09:43)
[2017-06-17] MEDS: ASCORBIC ACID 500 MG TABLET (FP) PO SCH ×2 (09:43→21:20)
[2017-06-17] MEDS: AMOX TR/POT CLAV 500MG/125MG TABLETS (FP) PO SCH ×2 (09:43→16:35)
[2017-06-17] MEDS: CHOLECALCIFEROL (VITAMIN D3) 400 UNIT TABLET (FP) PO SCH (09:44)
[2017-06-17] MEDS: LEFLUNOMIDE 10 MG TABLET PO SCH (09:45)
[2017-06-17] MEDS: POLYETHYLENE GLYCOL 3350 119 GM BTL PO SCH (09:58)
[2017-06-17] MEDS: ALBUTEROL SO4 0.083% IH SOL 2.5 MG/3 ML VIAL.NEB. NEB PRN ×2 (10:08→22:30)
--- NOTE | 2017-06-17 11:46 | PN ---
Progress Note (short form) - Note Progress Note: Chief Complaint: malaise, weakness History of Present Illness: no sob, cp, palps, dizziness. still with cough productive of yellow sputum. Current Medications Generic Name Dose Route Start Last Admin Trade Name Freq PRN Reason Stop Dose Admin Acetaminophen 650 mg 06/17/17 09:15 06/17/17 09:40 Tylenol - PO 650 mg Q4H PRN Administration FEVER OR PAIN Albuterol Sulfate 1 amp 06/15/17 12:08 06/17/17 10:08 Ventolin 0.083% Nebulizer Soln - NEB 1 amp Q4H PRN Administration SHORT OF BREATH/WHEEZING Amoxicillin/Clavulanate Potassium 1 tab 06/17/17 08:00 06/17/17 09:43 Augmentin - 500mg Tablet PO 1 tab BID@0800,1730 [facility] Administration Ascorbic Acid 1,000 mg 06/17/17 10:00 06/17/17 09:43 Vitamin C - PO 1,000 mg BID [facility] Administration Aspirin 81 mg 06/14/17 10:00 06/17/17 09:43 Asa - PO 81 mg DAILY [facility] Administration Atorvastatin Calcium 80 mg 06/14/17 22:00 06/16/17 21:35 Lipitor - PO 80 mg HS [facility] Administration Azithromycin 500 mg 06/17/17 10:00 06/17/17 09:42 Zithromax - PO 500 mg DAILY [facility] Administration Budesonide/Formoterol Fumarate 2 puff 06/14/17 10:00 06/17/17 09:57 Symbicort 160/4.5mcg - IH 2 puff BID [facility] Administration Carvedilol 3.125 mg 06/14/17 22:00 06/17/17 09:43 Coreg - PO 3.125 mg BID [facility] Administration Cholecalciferol 800 unit 06/14/17 10:00 06/17/17 09:44 Vitamin D3 - PO 800 unit DAILY [facility] Administration Docusate Sodium 100 mg 06/14/17 22:00 06/16/17 21:35 Colace - PO 100 mg HS [facility] Administration Ferrous Sulfate 325 mg 06/17/17 17:30 Feosol - PO BIDWM [facility] Guaifenesin 10 ml 06/14/17 13:26 06/14/17 18:51 Robitussin - PO 10 ml Q4H PRN Administration COUGH Leflunomide 20 mg 06/16/17 10:00 06/17/17 09:45 Arava - PO 20 mg DAILY [facility] Administration Levothyroxine Sodium 50 mcg 06/16/17 07:00 06/17/17 06:06 Synthroid - PO 50 mcg DAILY@0700 [facility] Administration Montelukast Sodium 10 mg 06/14/17 22:00 06/16/17 21:35 Singulair - PO 10 mg HS [facility] Administration Multivitamins/Minerals/Vitamin C 1 tab 06/14/17 10:00 06/17/17 09:43 Tab-A-Vit - PO 1 tab DAILY [facility] Administration Polyethylene Glycol 17 gm 06/15/17 10:00 06/17/17 09:58 Miralax (For Daily Use) - PO 17 grams DAILY [facility] Administration Prednisone 20 mg 06/17/17 10:00 06/17/17 09:43 Deltasone - PO 20 mg DAILY [facility] Administration Ranitidine HCl 150 mg 06/17/17 10:00 06/17/17 09:40 Zantac - PO 150 mg BID [facility] Administration Vital Signs Period Temp Pulse Resp BP Sys/Skinner Pulse Ox Last 24 Hr 97.8 F-99.7 F 90-98 18-18 92-109/62-74 97-97 Constitutional: Yes: No Distress Eyes: No: Sclera Icterus Respiratory: cta bl nl eff No: Accessory Muscle Use, Rales, Wheezes Gastrointestinal: Yes: Normal Bowel Sounds. No: Distention, Hepatomegaly, Palpable Mass, Tenderness Cardiovascular: Yes: Regular Rate and Rhythm JVD: No Heart Sounds: Yes: S1, S2. No: Gallop Murmur: Yes: Systolic Murmur (2/6 early VICKY rusb). No: Diastolic Murmur Extremities: No: Cool, Cyanosis Edema: No Peripheral Pulses: 2+ Left Carotid, 2+ Right Carotid, 2+ Left Doralis Pedis, 2+ Right Dorsalis Pedis Integumentary: No: Jaundice Neurological: Yes: Alert. No: Seizure Psychiatric: No: Agitated - Other Data Labs, Other Data: CBC, BMP 06/17/17 05:05 06/17/17 05:05 tele: NSR with frequent pac's Echo 03/07: nl LV, nl RV, mild AI, mild-mod , ao root 4.5 cm echo 05/2017: low nl lvef, nl rv, mild tr, mod ar, dilated ao root repeat chest ct 05/[address] chest 05/06: severe copd changes, 4.2 cm ascending aorta ECG 06/13: very poor baseline. ? Afib, vs sinus with freq APCs. R-bonds QRS axis new vs prior. no path Q's. nonsp TWAs vs 12/2006 ECG 06/14: baseline wander artifact present--no suspected ST elevations. NSR with APCs, intermittent inc RBBB with associated repol abn.s; R-bonds QRS axis CXR: marked diffuse interstitial markings, no vasc redistribution, no alveolar infiltrates, no effusion (L base not well seen) a/p: 82 y/o former smoker with h/o CAD, h/o AWMI, HTN, HPL, thoracic aorta aneurysm, AV disease, copd who p/w generalized weakness. generalized weakness, fever (103.3 in ER): -infectious w/u and tx per hospitalist/ID NSTEMI, h/o CAD (AWMI s/p PCI): -pt with AW STEMI 2010 s/p PCI to mLAD, no residual -no angina recently -preserved LVEF -here with nonspecific sx's for several days, including cp and sob -trop 1.9-->2.2-->2.0 -? Type II AK, vs Type I AK triggered by acute infection. -given pt clinically very stable and no ongoing sx's, and he has signif anemia of ? etiology, will defer heparin at present. low threshold to add UFH if anginal sx's. -cont home meds: coreg 3.125 bid, asa -increased atorva to 80 here, at least short term for max anti-AK prevention, then will likely decr dose as outpt in several weeks ? afib: -initial ECG with very poor baseline--cannot exclude Afib (vs sinus with APCs -defer AC unless definite AFib seen (kwaku given acute anemia req PRBCs) anemia: -initial hgb 7.8, s/p PRBCs--up to 8.4 -baseline hgb 9 in 08/07, was 8.9 on 06/11 office labs -w/u per pmd -guaiac negative. cont ASA for now SOB: -? anginal sx at home, ? sec to anemia, known chronic copd -CXR reviewed, appears c/w chronic interstitial changes related to copd; no chf pattern - CT chest pending -bnp 1800, no priors -clinically appears euvolemic--no diuresis indicated copd: -per pmd HTN: -bp running 90s-110s at present -cont carvedilol for now, low threshold to stop it if bp dips further aorta aneurysm: -stable size 4.2-4.5 cm ao root/ascending on recent imaging -routine bp mgmt and imaging surveillance as doing AV dz: -mild to moderate (03/07 study).
--- NOTE | 2017-06-17 12:06 | PN ---
Progress Note, Physician History of Present Illness: PULMONARY ALERT,OOB-CHAIR,LESS COUGH,-CP - Current Medication List Current Medications: Active Medications Acetaminophen (Tylenol -) 650 mg PO Q4H PRN PRN Reason: FEVER OR PAIN Last Admin: 06/17/17 09:40 Dose: 650 mg Albuterol Sulfate (Ventolin 0.083% Nebulizer Soln -) 1 amp NEB Q4H PRN PRN Reason: SHORT OF BREATH/WHEEZING Last Admin: 06/17/17 10:08 Dose: 1 amp Amoxicillin/Clavulanate Potassium (Augmentin - 500mg Tablet) 1 tab PO BID@0800, 1730 [facility] Last Admin: 06/17/17 09:43 Dose: 1 tab Ascorbic Acid (Vitamin C -) 1,000 mg PO BID [facility] Last Admin: 06/17/17 09:43 Dose: 1,000 mg Aspirin (Asa -) 81 mg PO DAILY [facility] Last Admin: 06/17/17 09:43 Dose: 81 mg Atorvastatin Calcium (Lipitor -) 80 mg PO [facility] Last Admin: 06/16/17 21:35 Dose: 80 mg Azithromycin (Zithromax -) 500 mg PO DAILY [facility] Last Admin: 06/17/17 09:42 Dose: 500 mg Budesonide/Formoterol Fumarate (Symbicort 160/4.5mcg -) 2 puff IH BID [facility] Last Admin: 06/17/17 09:57 Dose: 2 puff Carvedilol (Coreg -) 3.125 mg PO BID [facility] Last Admin: 06/17/17 09:43 Dose: 3.125 mg Cholecalciferol (Vitamin D3 -) 800 unit PO DAILY [facility] Last Admin: 06/17/17 09:44 Dose: 800 unit Docusate Sodium (Colace -) 100 mg PO HS [facility] Last Admin: 06/16/17 21:35 Dose: 100 mg Ferrous Sulfate (Feosol -) 325 mg PO BIDWM [facility] Guaifenesin (Robitussin -) 10 ml PO Q4H PRN PRN Reason: COUGH Last Admin: 06/14/17 18:51 Dose: 10 ml Leflunomide (Arava -) 20 mg PO DAILY [facility] Last Admin: 06/17/17 09:45 Dose: 20 mg Levothyroxine Sodium (Synthroid -) 50 mcg PO DAILY@0700 [facility] Last Admin: 06/17/17 06:06 Dose: 50 mcg Montelukast Sodium (Singulair -) 10 mg PO HS [facility] Last Admin: 06/16/17 21:35 Dose: 10 mg Multivitamins/Minerals/Vitamin C (Tab-A-Vit -) 1 tab PO DAILY [facility] Last Admin: 06/17/17 09:43 Dose: 1 tab Polyethylene Glycol (Miralax (For Daily Use) -) 17 gm PO DAILY [facility] Last Admin: 06/17/17 09:58 Dose: 17 grams Prednisone (Deltasone -) 20 mg PO DAILY [facility] Last Admin: 06/17/17 09:43 Dose: 20 mg Ranitidine HCl (Zantac -) 150 mg PO BID [facility] Last Admin: 06/17/17 09:40 Dose: 150 mg - Objective Vital Signs: Vital Signs Temperature 99.5 F 06/17/17 09:00 Pulse Rate 92 H 06/17/17 09:00 Respiratory Rate 18 06/17/17 09:00 Blood Pressure 109/74 06/17/17 09:00 O2 Sat by Pulse Oximetry (%) 97 06/17/17 09:00 Constitutional: Yes: Calm, Thin Eyes: Yes: WNL HENT: Yes: WNL Neck: Yes: WNL Cardiovascular: Yes: Regular Rate and Rhythm, S1, S2 Respiratory: Yes: Rales (BIBASILAR CRACKLES,FEW WHEEZES) Gastrointestinal: Yes: Normal Bowel Sounds, Soft Extremities: Yes: WNL Edema: No Labs: CBC, BMP 06/17/17 05:05 06/17/17 05:05 INR, PTT INR 1.17 (0.82-1.09) H 06/14/17 07:00 Problem List - Problems (1) SIRS (systemic inflammatory response syndrome) Code(s): R65.10 - SIRS OF NON-INFECTIOUS ORIGIN W/O ACUTE ORGAN DYSFUNCTION (2) Anemia Code(s): D64.9 - ANEMIA, UNSPECIFIED (3) COPD (chronic obstructive pulmonary disease) Code(s): J44.9 - CHRONIC OBSTRUCTIVE PULMONARY DISEASE, UNSPECIFIED (4) HLD (hyperlipidemia) Code(s): E78.5 - HYPERLIPIDEMIA, UNSPECIFIED (5) HTN (hypertension) Code(s): I10 - ESSENTIAL (PRIMARY) HYPERTENSION (6) Sepsis due to pneumonia Code(s): J18.9 - PNEUMONIA, UNSPECIFIED ORGANISM; A41.9 - SEPSIS, UNSPECIFIED ORGANISM (7) Weakness Code(s): R53.1 - WEAKNESS (8) Troponin I above reference range Code(s): R74.8 - ABNORMAL LEVELS OF OTHER SERUM ENZYMES (9) Anemia Code(s): D64.9 - ANEMIA, UNSPECIFIED (10) Anemia Code(s): D64.9 - ANEMIA, UNSPECIFIED (11) Asthma Code(s): J45.909 - UNSPECIFIED ASTHMA, UNCOMPLICATED Assessment/Plan IMP SIRS RESOLVED ? 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 Problem List - Problems (1) SIRS (systemic inflammatory response syndrome) Code(s): R65.10 - SIRS OF NON-INFECTIOUS ORIGIN W/O ACUTE ORGAN DYSFUNCTION (2) Anemia Code(s): D64.9 - ANEMIA, UNSPECIFIED (3) COPD (chronic obstructive pulmonary disease) Code(s): J44.9 - CHRONIC OBSTRUCTIVE PULMONARY DISEASE, UNSPECIFIED (4) HLD (hyperlipidemia) Code(s): E78.5 - HYPERLIPIDEMIA, UNSPECIFIED (5) HTN (hypertension) Code(s): I10 - ESSENTIAL (PRIMARY) HYPERTENSION (6) Sepsis due to pneumonia Code(s): J18.9 - PNEUMONIA, UNSPECIFIED ORGANISM; A41.9 - SEPSIS, UNSPECIFIED ORGANISM (7) Weakness Code(s): R53.1 - WEAKNESS (8) Troponin I above reference range Code(s): R74.8 - ABNORMAL LEVELS OF OTHER SERUM ENZYMES (9) Anemia Code(s): D64.9 - ANEMIA, UNSPECIFIED (10) Anemia Code(s): D64.9 - ANEMIA, UNSPECIFIED (11) Asthma Code(s): J45.909 - UNSPECIFIED ASTHMA, UNCOMPLICATED
[2017-06-17] MEDS ORDERED: guaiFENesin 200 MG/10 ML 10 ML UNIT-DOSE CUPS PO PRN (14:53)
[2017-06-17] MEDS: FERROUS SO4 325 MG TABLET (FP) PO SCH (16:35)
--- NOTE | 2017-06-17 18:49 | PN ---
Progress Note, Physician History of Present Illness: stable from pul point of view headaches patient cme from ct of the head - Current Medication List Current Medications: Active Medications Acetaminophen (Tylenol -) 650 mg PO Q4H PRN PRN Reason: FEVER OR PAIN Last Admin: 06/17/17 09:40 Dose: 650 mg Albuterol Sulfate (Ventolin 0.083% Nebulizer Soln -) 1 amp NEB Q4H PRN PRN Reason: SHORT OF BREATH/WHEEZING Last Admin: 06/17/17 10:08 Dose: 1 amp Amoxicillin/Clavulanate Potassium (Augmentin - 500mg Tablet) 1 tab PO BID@0800, 1730 [facility] Last Admin: 06/17/17 16:35 Dose: 1 tab Ascorbic Acid (Vitamin C -) 1,000 mg PO BID [facility] Last Admin: 06/17/17 09:43 Dose: 1,000 mg Aspirin (Asa -) 81 mg PO DAILY [facility] Last Admin: 06/17/17 09:43 Dose: 81 mg Atorvastatin Calcium (Lipitor -) 80 mg PO HS [facility] Last Admin: 06/16/17 21:35 Dose: 80 mg Azithromycin (Zithromax -) 500 mg PO DAILY [facility] Last Admin: 06/17/17 09:42 Dose: 500 mg Budesonide/Formoterol Fumarate (Symbicort 160/4.5mcg -) 2 puff IH BID [facility] Last Admin: 06/17/17 09:57 Dose: 2 puff Carvedilol (Coreg -) 3.125 mg PO BID [facility] Last Admin: 06/17/17 09:43 Dose: 3.125 mg Cholecalciferol (Vitamin D3 -) 800 unit PO DAILY [facility] Last Admin: 06/17/17 09:44 Dose: 800 unit Docusate Sodium (Colace -) 100 mg PO HS [facility] Last Admin: 06/16/17 21:35 Dose: 100 mg Ferrous Sulfate (Feosol -) 325 mg PO BIDWM [facility] Last Admin: 06/17/17 16:35 Dose: 325 mg Guaifenesin (Robitussin -) 10 ml PO Q4H PRN PRN Reason: COUGH Leflunomide (Arava -) 20 mg PO DAILY [facility] Last Admin: 06/17/17 09:45 Dose: 20 mg Levothyroxine Sodium (Synthroid -) 50 mcg PO DAILY@0700 [facility] Last Admin: 06/17/17 06:06 Dose: 50 mcg Montelukast Sodium (Singulair -) 10 mg PO HS [facility] Last Admin: 06/16/17 21:35 Dose: 10 mg Multivitamins/Minerals/Vitamin C (Tab-A-Vit -) 1 tab PO DAILY [facility] Last Admin: 06/17/17 09:43 Dose: 1 tab Polyethylene Glycol (Miralax (For Daily Use) -) 17 gm PO DAILY [facility] Last Admin: 06/17/17 09:58 Dose: 17 grams Prednisone (Deltasone -) 20 mg PO DAILY [facility] Last Admin: 06/17/17 09:43 Dose: 20 mg Ranitidine HCl (Zantac -) 150 mg PO BID [facility] Last Admin: 06/17/17 09:40 Dose: 150 mg - Objective Vital Signs: Vital Signs Temperature 97.7 F 06/17/17 14:16 Pulse Rate 87 06/17/17 14:17 Respiratory Rate 18 06/17/17 14:17 Blood Pressure 93/38 06/17/17 14:17 O2 Sat by Pulse Oximetry (%) 97 06/17/17 09:00 Constitutional: Yes: No Distress, Calm Cardiovascular: Yes: S1, S2 Respiratory: Yes: Regular, On Nasal O2, Other Gastrointestinal: Yes: Normal Bowel Sounds, Soft Musculoskeletal: Yes: WNL Extremities: Yes: WNL Neurological: Yes: Alert, Oriented Labs: CBC, BMP 06/17/17 05:05 06/17/17 05:05 INR, PTT INR 1.17 (0.82-1.09) H 06/14/17 07:00 Assessment/Plan after evaluating the patient i think this multifactorial,patient has some cardiac issue going on and possibilty of pneumonia is also there though i do not see any specific findings in the xray patient has been started on ceftriaxone and zithro and he is stable Problem List - Problems (1) SIRS (systemic inflammatory response syndrome) Code(s): R65.10 - SIRS OF NON-INFECTIOUS ORIGIN W/O ACUTE ORGAN DYSFUNCTION (2) Anemia Code(s): D64.9 - ANEMIA, UNSPECIFIED (3) COPD (chronic obstructive pulmonary disease) Code(s): J44.9 - CHRONIC OBSTRUCTIVE PULMONARY DISEASE, UNSPECIFIED (4) HLD (hyperlipidemia) Code(s): E78.5 - HYPERLIPIDEMIA, UNSPECIFIED (5) HTN (hypertension) Code(s): I10 - ESSENTIAL (PRIMARY) HYPERTENSION (6) Sepsis due to pneumonia Code(s): J18.9 - PNEUMONIA, UNSPECIFIED ORGANISM; A41.9 - SEPSIS, UNSPECIFIED ORGANISM (7) Weakness Code(s): R53.1 - WEAKNESS (8) Troponin I above reference range Code(s): R74.8 - ABNORMAL LEVELS OF OTHER SERUM ENZYMES (9) Anemia Code(s): D64.9 - ANEMIA, UNSPECIFIED (10) Anemia Code(s): D64.9 - ANEMIA, UNSPECIFIED (11) Asthma Code(s): J45.909 - UNSPECIFIED ASTHMA, UNCOMPLICATED plan continue oral abx repeat blood cx result noted await ct head result rest s per primary
[2017-06-17] MEDS: MONTELUKAST NA 10 MG TABLET PO SCH (21:20)
[2017-06-17] MEDS: DOCUSATE SODIUM 100 MG CAPSULE (FP) PO SCH (21:20)
[2017-06-17] MEDS: ATORVASTATIN CA 80 MG TABLET (FP) PO SCH (21:20)
[2017-06-18] MEDS: LEVOTHYROXINE NA 50 MCG TABLET (FP) PO SCH (06:10)
[2017-06-18 07:24] LABS: BASO % 0.3 % (0-2.0); EOS % 2.1 % (0-4.5); HEMATOCRIT 28.6 % (35.4-49); HEMOGLOBIN 9.4 GM/dL (11.7-16.9); LYMPH % 18.5 % (8-40); MCH 29.1 pg (25.7-33.7); MCHC 32.8 g/dl (32.0-35.9); MEAN CELL VOLUME 88.7 fl (80-96); MEAN PLT VOLUME 7.1 fl (7.5-11.1); MONO % 9.1 % (3.8-10.2); PLATELET COUNT 131 K/MM3 (134-434); RBC 3.23 M/mm3 (4.00-5.60); RDW 16.9 % (11.9-15.9); WHITE BLOOD COUNT 3.6 K/mm3 (4.0-10.0)
[2017-06-18 08:11] LABS: ANION GAP 11 (8-16); BLOOD UREA NITROGEN 15 mg/dL (7-18); CALCIUM 8.4 mg/dL (8.5-10.1); CHLORIDE 99 mmol/L (98-107); CO2 28 mmol/L (21-32); CREATININE 0.4 mg/dL (0.7-1.3); GLUCOSE,RANDOM 124 mg/dL (74-106); POTASSIUM 3.6 mmol/L (3.5-5.1); SODIUM 138 mmol/L (136-145)
[2017-06-18 08:17] LABS: PREALBUMIN 13.6 mg/dl (20-40)
[2017-06-18] MEDS: FERROUS SO4 325 MG TABLET (FP) PO SCH ×2 (08:19→17:59)
[2017-06-18] MEDS: AMOX TR/POT CLAV 500MG/125MG TABLETS (FP) PO SCH ×2 (08:19→17:59)
[2017-06-18] MEDS: ASPIRIN 81 MG CHEWABLE TABLETS PO SCH (09:17)
[2017-06-18] MEDS: LEFLUNOMIDE 10 MG TABLET PO SCH (09:17)
[2017-06-18] MEDS: RANITIDINE HCL 150 MG TABLET (FP) PO SCH ×2 (09:18→22:34)
[2017-06-18] MEDS: predniSONE 20 MG TABLET (UD) PO SCH (09:18)
[2017-06-18] MEDS: ASCORBIC ACID 500 MG TABLET (FP) PO SCH ×2 (09:18→22:33)
[2017-06-18] MEDS: MULTIVITAMINS (DAILY MVI) TABLET (FP) PO SCH (09:18)
[2017-06-18] MEDS: AZITHROMYCIN 250 MG TABLET PO SCH (09:18)
[2017-06-18] MEDS: POLYETHYLENE GLYCOL 3350 119 GM BTL PO SCH (09:19)
[2017-06-18] MEDS: CHOLECALCIFEROL (VITAMIN D3) 400 UNIT TABLET (FP) PO SCH (09:19)
[2017-06-18] MEDS: CARVEDILOL 3.125 MG TABLET (FP) PO SCH ×2 (09:21→22:34)
[2017-06-18] MEDS: BUDESONIDE/FORMETEROL FUMARATE 160/4.5 mcg INHALER IH SCH ×2 (09:21→22:34)
--- NOTE | 2017-06-18 09:58 | PN ---
Progress Note (short form) - Note Progress Note: Patient has less coughing today and high excellent urine output from just 1 dose of IV lasix. I also Rxed prednisone 20mg yesterday. He had intractable headache yeaterday but improved today. CT Head: no acute brain changes but ? large polyp left nasal cavity (ENT ordered) and significant Carotid calcification(sonogram ordered). Slightly lower wbc today: To recheck. He was a little better yesterday with PT. I am still hoping for posthospital Rehab as he really cannot ambulate on his own and has a hx of proven Rhematoid Arthritis. On Exam: Vital Signs Temp 97.4 F L 06/18/17 07:50 Pulse 83 06/18/17 07:50 Resp 18 06/18/17 07:50 BP 98/67 06/18/17 07:50 Pulse Ox 98 06/17/17 19:59 Intake & Output 06/17/17 06/17/17 06/18/17 11:59 23:59 11:59 Intake Total 0 360 50 Output Total 100 900 Balance -100 -540 50 Intake: IV 0 10 0 Saline Lock 0 10 0 Oral 350 50 Output: Urine 100 900 Void 100 900 Other: Voiding Method Urinal Urinal Urinal # Unmeasured Voids Void 3 Bowel Movement No Alert BISHOP PAIUTE Slightly pale Chest: Few rhonchi at both bases; no wheezes Cor: reg Ext: No edema Abnormal Lab Results 06/18/17 06/18/17 06:20 06:20 WBC 3.6 L RBC 3.23 L Hgb 9.4 L Hct 28.6 L RDW 16.9 H Plt Count 131 L MPV 7.1 L Creatinine 0.4 L Random Glucose 124 H D Calcium 8.4 L Prealbumin 13.6 L IMP: COPD with Exacerbation ASHD S/P [place] and new ischemic event Iron Deficiency Anemia but refusing endoscopy ? 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 as MD away this week ENT carotid sonogram F/U Lab Rehab post hospital
--- NOTE | 2017-06-18 11:08 | PN ---
Progress Note, Physician History of Present Illness: feeling better no complaints - Current Medication List Current Medications: Active Medications Acetaminophen (Tylenol -) 650 mg PO Q4H PRN PRN Reason: FEVER OR PAIN Last Admin: 06/17/17 09:40 Dose: 650 mg Albuterol Sulfate (Ventolin 0.083% Nebulizer Soln -) 1 amp NEB Q4H PRN PRN Reason: SHORT OF BREATH/WHEEZING Last Admin: 06/17/17 22:30 Dose: 1 amp Amoxicillin/Clavulanate Potassium (Augmentin - 500mg Tablet) 1 tab PO BID@0800, 1730 [facility] Last Admin: 06/18/17 08:19 Dose: 1 tab Ascorbic Acid (Vitamin C -) 1,000 mg PO BID [facility] Last Admin: 06/18/17 09:18 Dose: 1,000 mg Aspirin (Asa -) 81 mg PO DAILY [facility] Last Admin: 06/18/17 09:17 Dose: 81 mg Atorvastatin Calcium (Lipitor -) 80 mg PO [facility] Last Admin: 06/17/17 21:20 Dose: 80 mg Azithromycin (Zithromax -) 500 mg PO DAILY [facility] Last Admin: 06/18/17 09:18 Dose: 500 mg Budesonide/Formoterol Fumarate (Symbicort 160/4.5mcg -) 2 puff IH BID [facility] Last Admin: 06/18/17 09:21 Dose: 2 puff Carvedilol (Coreg -) 3.125 mg PO BID [facility] Last Admin: 06/18/17 09:21 Dose: Not Given Cholecalciferol (Vitamin D3 -) 800 unit PO DAILY [facility] Last Admin: 06/18/17 09:19 Dose: 800 unit Docusate Sodium (Colace -) 100 mg PO HS [facility] Last Admin: 06/17/17 21:20 Dose: 100 mg Ferrous Sulfate (Feosol -) 325 mg PO BIDWM [facility] Last Admin: 06/18/17 08:19 Dose: 325 mg Guaifenesin (Robitussin -) 10 ml PO Q4H PRN PRN Reason: COUGH Leflunomide (Arava -) 20 mg PO DAILY [facility] Last Admin: 06/18/17 09:17 Dose: 20 mg Levothyroxine Sodium (Synthroid -) 50 mcg PO DAILY@0700 [facility] Last Admin: 06/18/17 06:10 Dose: 50 mcg Montelukast Sodium (Singulair -) 10 mg PO HS [facility] Last Admin: 06/17/17 21:20 Dose: 10 mg Multivitamins/Minerals/Vitamin C (Tab-A-Vit -) 1 tab PO DAILY [facility] Last Admin: 06/18/17 09:18 Dose: 1 tab Polyethylene Glycol (Miralax (For Daily Use) -) 17 gm PO DAILY [facility] Last Admin: 06/18/17 09:19 Dose: 17 grams Prednisone (Deltasone -) 20 mg PO DAILY [facility] Last Admin: 06/18/17 09:18 Dose: 20 mg Ranitidine HCl (Zantac -) 150 mg PO BID [facility] Last Admin: 06/18/17 09:18 Dose: 150 mg - Objective Vital Signs: Vital Signs Temperature 97.4 F L 06/18/17 07:50 Pulse Rate 83 06/18/17 07:50 Respiratory Rate 18 06/18/17 07:50 Blood Pressure 98/67 06/18/17 07:50 O2 Sat by Pulse Oximetry (%) 98 06/17/17 19:59 Constitutional: Yes: No Distress, Calm Cardiovascular: Yes: S1, S2 Respiratory: Yes: Regular, On Nasal O2, Other Gastrointestinal: Yes: Normal Bowel Sounds, Soft Musculoskeletal: Yes: WNL Extremities: Yes: WNL Neurological: Yes: Alert, Oriented Psychiatric: Yes: Alert Labs: CBC, BMP 06/18/17 06:20 06/18/17 06:20 INR, PTT INR 1.17 (0.82-1.09) H 06/14/17 07:00 Assessment/Plan after evaluating the patient i think this multifactorial,patient has some cardiac issue going on and possibilty of pneumonia is also there though i do not see any specific findings in the xray patient has been started on ceftriaxone and zithro and he is stable Problem List - Problems (1) SIRS (systemic inflammatory response syndrome) Code(s): R65.10 - SIRS OF NON-INFECTIOUS ORIGIN W/O ACUTE ORGAN DYSFUNCTION (2) Anemia Code(s): D64.9 - ANEMIA, UNSPECIFIED (3) COPD (chronic obstructive pulmonary disease) Code(s): J44.9 - CHRONIC OBSTRUCTIVE PULMONARY DISEASE, UNSPECIFIED (4) HLD (hyperlipidemia) Code(s): E78.5 - HYPERLIPIDEMIA, UNSPECIFIED (5) HTN (hypertension) Code(s): I10 - ESSENTIAL (PRIMARY) HYPERTENSION (6) Sepsis due to pneumonia Code(s): J18.9 - PNEUMONIA, UNSPECIFIED ORGANISM; A41.9 - SEPSIS, UNSPECIFIED ORGANISM (7) Weakness Code(s): R53.1 - WEAKNESS (8) Troponin I above reference range Code(s): R74.8 - ABNORMAL LEVELS OF OTHER SERUM ENZYMES (9) Anemia Code(s): D64.9 - ANEMIA, UNSPECIFIED (10) Anemia Code(s): D64.9 - ANEMIA, UNSPECIFIED (11) Asthma Code(s): J45.909 - UNSPECIFIED ASTHMA, UNCOMPLICATED plan can stop abx after 3 more days physio rest as per primary team
--- NOTE | 2017-06-18 12:10 | PN ---
Progress Note, Physician History of Present Illness: pulmonary alert,oob-chair,-resp distress,weak,poor appetite - Current Medication List Current Medications: Active Medications Acetaminophen (Tylenol -) 650 mg PO Q4H PRN PRN Reason: FEVER OR PAIN Last Admin: 06/17/17 09:40 Dose: 650 mg Albuterol Sulfate (Ventolin 0.083% Nebulizer Soln -) 1 amp NEB Q4H PRN PRN Reason: SHORT OF BREATH/WHEEZING Last Admin: 06/17/17 22:30 Dose: 1 amp Amoxicillin/Clavulanate Potassium (Augmentin - 500mg Tablet) 1 tab PO BID@0800, 1730 [facility] Last Admin: 06/18/17 08:19 Dose: 1 tab Ascorbic Acid (Vitamin C -) 1,000 mg PO BID [facility] Last Admin: 06/18/17 09:18 Dose: 1,000 mg Aspirin (Asa -) 81 mg PO DAILY [facility] Last Admin: 06/18/17 09:17 Dose: 81 mg Atorvastatin Calcium (Lipitor -) 80 mg PO HS [facility] Last Admin: 06/17/17 21:20 Dose: 80 mg Azithromycin (Zithromax -) 500 mg PO DAILY [facility] Last Admin: 06/18/17 09:18 Dose: 500 mg Budesonide/Formoterol Fumarate (Symbicort 160/4.5mcg -) 2 puff IH BID [facility] Last Admin: 06/18/17 09:21 Dose: 2 puff Carvedilol (Coreg -) 3.125 mg PO BID [facility] Last Admin: 06/18/17 09:21 Dose: Not Given Cholecalciferol (Vitamin D3 -) 800 unit PO DAILY [facility] Last Admin: 06/18/17 09:19 Dose: 800 unit Docusate Sodium (Colace -) 100 mg PO HS [facility] Last Admin: 06/17/17 21:20 Dose: 100 mg Ferrous Sulfate (Feosol -) 325 mg PO BIDWM [facility] Last Admin: 06/18/17 08:19 Dose: 325 mg Guaifenesin (Robitussin -) 10 ml PO Q4H PRN PRN Reason: COUGH Leflunomide (Arava -) 20 mg PO DAILY [facility] Last Admin: 06/18/17 09:17 Dose: 20 mg Levothyroxine Sodium (Synthroid -) 50 mcg PO DAILY@0700 [facility] Last Admin: 06/18/17 06:10 Dose: 50 mcg Montelukast Sodium (Singulair -) 10 mg PO HS [facility] Last Admin: 06/17/17 21:20 Dose: 10 mg Multivitamins/Minerals/Vitamin C (Tab-A-Vit -) 1 tab PO DAILY [facility] Last Admin: 06/18/17 09:18 Dose: 1 tab Polyethylene Glycol (Miralax (For Daily Use) -) 17 gm PO DAILY [facility] Last Admin: 06/18/17 09:19 Dose: 17 grams Prednisone (Deltasone -) 20 mg PO DAILY [facility] Last Admin: 06/18/17 09:18 Dose: 20 mg Ranitidine HCl (Zantac -) 150 mg PO BID [facility] Last Admin: 06/18/17 09:18 Dose: 150 mg - Objective Vital Signs: Vital Signs Temperature 97.4 F L 06/18/17 07:50 Pulse Rate 83 06/18/17 07:50 Respiratory Rate 18 06/18/17 07:50 Blood Pressure 98/67 06/18/17 07:50 O2 Sat by Pulse Oximetry (%) 98 06/17/17 19:59 Constitutional: Yes: Calm, Thin Eyes: Yes: WNL HENT: Yes: WNL Neck: Yes: WNL Cardiovascular: Yes: Regular Rate and Rhythm, S1, S2 Respiratory: Yes: Rales (scattered crackles) Gastrointestinal: Yes: Normal Bowel Sounds, Soft Extremities: Yes: WNL Edema: No Labs: CBC, BMP 06/18/17 06:20 06/18/17 06:20 INR, PTT INR 1.17 (0.82-1.09) H 06/14/17 07:00 Problem List - Problems (1) SIRS (systemic inflammatory response syndrome) Code(s): R65.10 - SIRS OF NON-INFECTIOUS ORIGIN W/O ACUTE ORGAN DYSFUNCTION (2) Anemia Code(s): D64.9 - ANEMIA, UNSPECIFIED (3) COPD (chronic obstructive pulmonary disease) Code(s): J44.9 - CHRONIC OBSTRUCTIVE PULMONARY DISEASE, UNSPECIFIED (4) HLD (hyperlipidemia) Code(s): E78.5 - HYPERLIPIDEMIA, UNSPECIFIED (5) HTN (hypertension) Code(s): I10 - ESSENTIAL (PRIMARY) HYPERTENSION (6) Sepsis due to pneumonia Code(s): J18.9 - PNEUMONIA, UNSPECIFIED ORGANISM; A41.9 - SEPSIS, UNSPECIFIED ORGANISM (7) Weakness Code(s): R53.1 - WEAKNESS (8) Troponin I above reference range Code(s): R74.8 - ABNORMAL LEVELS OF OTHER SERUM ENZYMES (9) Anemia Code(s): D64.9 - ANEMIA, UNSPECIFIED (10) Anemia Code(s): D64.9 - ANEMIA, UNSPECIFIED (11) Asthma Code(s): J45.909 - UNSPECIFIED ASTHMA, UNCOMPLICATED Assessment/Plan IMP SIRS RESOLVED ? 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 Problem List - Problems (1) SIRS (systemic inflammatory response syndrome) Code(s): R65.10 - SIRS OF NON-INFECTIOUS ORIGIN W/O ACUTE ORGAN DYSFUNCTION (2) Anemia Code(s): D64.9 - ANEMIA, UNSPECIFIED (3) COPD (chronic obstructive pulmonary disease) Code(s): J44.9 - CHRONIC OBSTRUCTIVE PULMONARY DISEASE, UNSPECIFIED (4) HLD (hyperlipidemia) Code(s): E78.5 - HYPERLIPIDEMIA, UNSPECIFIED (5) HTN (hypertension) Code(s): I10 - ESSENTIAL (PRIMARY) HYPERTENSION (6) Sepsis due to pneumonia Code(s): J18.9 - PNEUMONIA, UNSPECIFIED ORGANISM; A41.9 - SEPSIS, UNSPECIFIED ORGANISM (7) Weakness Code(s): R53.1 - WEAKNESS (8) Troponin I above reference range Code(s): R74.8 - ABNORMAL LEVELS OF OTHER SERUM ENZYMES (9) Anemia Code(s): D64.9 - ANEMIA, UNSPECIFIED (10) Anemia Code(s): D64.9 - ANEMIA, UNSPECIFIED (11) Asthma Code(s): J45.909 - UNSPECIFIED ASTHMA, UNCOMPLICATED
--- NOTE | 2017-06-18 12:35 | PN ---
Progress Note (short form) - Note Progress Note: Chief Complaint: malaise, weakness History of Present Illness: no sob, cp, palps, dizziness. Current Medications Generic Name Dose Route Start Last Admin Trade Name Freq PRN Reason Stop Dose Admin Acetaminophen 650 mg 06/17/17 09:15 06/17/17 09:40 Tylenol - PO 650 mg Q4H PRN Administration FEVER OR PAIN Albuterol Sulfate 1 amp 06/15/17 12:08 06/17/17 22:30 Ventolin 0.083% Nebulizer Soln - NEB 1 amp Q4H PRN Administration SHORT OF BREATH/WHEEZING Amoxicillin/Clavulanate Potassium 1 tab 06/17/17 08:00 06/18/17 08:19 Augmentin - 500mg Tablet PO 1 tab BID@0800,1730 [facility] Administration Ascorbic Acid 1,000 mg 06/17/17 10:00 06/18/17 09:18 Vitamin C - PO 1,000 mg BID [facility] Administration Aspirin 81 mg 06/14/17 10:00 06/18/17 09:17 Asa - PO 81 mg DAILY [facility] Administration Atorvastatin Calcium 80 mg 06/14/17 22:00 06/17/17 21:20 Lipitor - PO 80 mg HS [facility] Administration Azithromycin 500 mg 06/17/17 10:00 06/18/17 09:18 Zithromax - PO 500 mg DAILY [facility] Administration Budesonide/Formoterol Fumarate 2 puff 06/14/17 10:00 06/18/17 09:21 Symbicort 160/4.5mcg - IH 2 puff BID [facility] Administration Carvedilol 3.125 mg 06/14/17 22:00 06/18/17 09:21 Coreg - PO Not Given BID [facility] Cholecalciferol 800 unit 06/14/17 10:00 06/18/17 09:19 Vitamin D3 - PO 800 unit DAILY [facility] Administration Docusate Sodium 100 mg 06/14/17 22:00 06/17/17 21:20 Colace - PO 100 mg HS [facility] Administration Ferrous Sulfate 325 mg 06/17/17 17:30 06/18/17 08:19 Feosol - PO 325 mg BIDWM [facility] Administration Guaifenesin 10 ml 06/17/17 14:53 Robitussin - PO Q4H PRN COUGH Leflunomide 20 mg 06/16/17 10:00 06/18/17 09:17 Arava - PO 20 mg DAILY [facility] Administration Levothyroxine Sodium 50 mcg 06/16/17 07:00 06/18/17 06:10 Synthroid - PO 50 mcg DAILY@0700 [facility] Administration Montelukast Sodium 10 mg 06/14/17 22:00 06/17/17 21:20 Singulair - PO 10 mg HS [facility] Administration Multivitamins/Minerals/Vitamin C 1 tab 06/14/17 10:00 06/18/17 09:18 Tab-A-Vit - PO 1 tab DAILY [facility] Administration Polyethylene Glycol 17 gm 06/15/17 10:00 06/18/17 09:19 Miralax (For Daily Use) - PO 17 grams DAILY [facility] Administration Prednisone 20 mg 06/17/17 10:00 06/18/17 09:18 Deltasone - PO 20 mg DAILY [facility] Administration Ranitidine HCl 150 mg 06/17/17 10:00 06/18/17 09:18 Zantac - PO 150 mg BID [facility] Administration Vital Signs Period Temp Pulse Resp BP Sys/Skinner Pulse Ox Last 24 Hr 97.4 F-97.9 F 72-93 18-20 84-109/38-72 98-99 Constitutional: Yes: No Distress Eyes: No: Sclera Icterus Respiratory: cta bl nl eff No: Accessory Muscle Use, Rales, Wheezes Gastrointestinal: Yes: Normal Bowel Sounds. No: Distention, Hepatomegaly, Palpable Mass, Tenderness Cardiovascular: Yes: Regular Rate and Rhythm JVD: No Heart Sounds: Yes: S1, S2. No: Gallop Murmur: Yes: Systolic Murmur (2/6 early VICKY rusb). No: Diastolic Murmur Extremities: No: Cool, Cyanosis Edema: No Peripheral Pulses: 2+ Left Carotid, 2+ Right Carotid, 2+ Left Doralis Pedis, 2+ Right Dorsalis Pedis Integumentary: No: Jaundice Neurological: Yes: Alert. No: Seizure Psychiatric: No: Agitated - Other Data Labs, Other Data: CBC, BMP 06/18/17 06:20 06/18/17 06:20 tele: NSR with frequent pac's, brief pat Echo 03/07: nl LV, nl RV, mild AI, mild-mod , ao root 4.5 cm echo 05/2017: low nl lvef, nl rv, mild tr, mod ar, dilated ao root repeat chest ct 05/[address] chest 05/06: severe copd changes, 4.2 cm ascending aorta ECG 06/13: very poor baseline. ? Afib, vs sinus with freq APCs. R-bonds QRS axis new vs prior. no path Q's. nonsp TWAs vs 12/2006 ECG 06/14: baseline wander artifact present--no suspected ST elevations. NSR with APCs, intermittent inc RBBB with associated repol abn.s; R-bonds QRS axis CXR: marked diffuse interstitial markings, no vasc redistribution, no alveolar infiltrates, no effusion (L base not well seen) a/p: 82 y/o former smoker with h/o CAD, h/o AWMI, HTN, HPL, thoracic aorta aneurysm, AV disease, copd who p/w generalized weakness. generalized weakness, fever (103.3 in ER): -infectious w/u and tx per hospitalist/ID NSTEMI, h/o CAD (AWMI s/p PCI): -pt with AW STEMI 2010 s/p PCI to mLAD, no residual -no angina recently -preserved LVEF -here with nonspecific sx's for several days, including cp and sob -trop 1.9-->2.2-->2.0 -? Type II NC, vs Type I NC triggered by acute infection. -given pt clinically very stable and no ongoing sx's, and he has signif anemia of ? etiology, will defer heparin at present. low threshold to add UFH if anginal sx's. -cont home meds: coreg 3.125 bid, asa -increased atorva to 80 here, at least short term for max anti-NC prevention, then will likely decr dose as outpt in several weeks anemia: -initial hgb 7.8, s/p PRBCs--up to 8.4 -baseline hgb 9 in 08/07, was 8.9 on 06/11 office labs -w/u per pmd -guaiac negative. cont ASA for now SOB: -? anginal sx at home, ? sec to anemia, known chronic copd -CXR reviewed, appears c/w chronic interstitial changes related to copd; no chf pattern - CT chest pending -bnp 1800, no priors -clinically appears euvolemic--no diuresis indicated copd: -per pmd HTN: -bp running 90s-110s at present -cont carvedilol for now, low threshold to stop it if bp dips further aorta aneurysm: -stable size 4.2-4.5 cm ao root/ascending on recent imaging -routine bp mgmt and imaging surveillance as doing AV dz: -mild to moderate (03/07 study). can dc tele
[2017-06-18] MEDS ORDERED: PT OWN MED DRAWER 7, Y5N ONE (17:11)
[2017-06-18] MEDS: DOCUSATE SODIUM 100 MG CAPSULE (FP) PO SCH (22:33)
[2017-06-18] MEDS: MONTELUKAST NA 10 MG TABLET PO SCH (22:34)
[2017-06-18] MEDS: ATORVASTATIN CA 80 MG TABLET (FP) PO SCH (22:34)
[2017-06-19 00:06] LABS: ALBUMIN 2.2 g/dL (2.9-4.4); GAMMA GLOBULIN 0.9 g/dL (0.4-1.8); GLOBULIN, TOTAL 2.9 g/dL (2.2-3.9); IGA ANTIBODY 153 mg/dL (61-437); IGG ANTIBODY 849 mg/dL (700-1600); IGM ANTIBODY 109 mg/dL (15-143)
[2017-06-19] MEDS: LEVOTHYROXINE NA 50 MCG TABLET (FP) PO SCH (06:02)
[2017-06-19 07:41] LABS: BASO % 0.4 % (0-2.0); EOS % 1.3 % (0-4.5); HEMATOCRIT 29.2 % (35.4-49); HEMOGLOBIN 9.4 GM/dL (11.7-16.9); LYMPH % 16.4 % (8-40); MCH 28.8 pg (25.7-33.7); MCHC 32.3 g/dl (32.0-35.9); MEAN CELL VOLUME 89.1 fl (80-96); MEAN PLT VOLUME 7.5 fl (7.5-11.1); MONO % 11.4 % (3.8-10.2); NEUT % 70.5 % (42.8-82.8); PLATELET COUNT 158 K/MM3 (134-434); RBC 3.27 M/mm3 (4.00-5.60); RDW 16.8 % (11.9-15.9); WHITE BLOOD COUNT 4.9 K/mm3 (4.0-10.0)
[2017-06-19 07:42] LABS: ANION GAP 5 (8-16); BLOOD UREA NITROGEN 19 mg/dL (7-18); CHLORIDE 100 mmol/L (98-107); CO2 32 mmol/L (21-32); CREATININE 0.4 mg/dL (0.7-1.3); GLUCOSE,RANDOM 75 mg/dL (74-106); POTASSIUM 4.3 mmol/L (3.5-5.1); SODIUM 137 mmol/L (136-145)
[2017-06-19] MEDS ORDERED: PT OWN MED DRAWER 7, Y5N ONE (09:36)
[2017-06-19] MEDS: FERROUS SO4 325 MG TABLET (FP) PO SCH (09:43)
[2017-06-19] MEDS: AMOX TR/POT CLAV 500MG/125MG TABLETS (FP) PO SCH (09:43)
[2017-06-19] MEDS: LEFLUNOMIDE 10 MG TABLET PO SCH (09:44)
[2017-06-19] MEDS: MULTIVITAMINS (DAILY MVI) TABLET (FP) PO SCH (09:45)
[2017-06-19] MEDS: ASPIRIN 81 MG CHEWABLE TABLETS PO SCH (09:45)
[2017-06-19] MEDS: CARVEDILOL 3.125 MG TABLET (FP) PO SCH (09:45)
[2017-06-19] MEDS: predniSONE 20 MG TABLET (UD) PO SCH (09:45)
[2017-06-19] MEDS: ASCORBIC ACID 500 MG TABLET (FP) PO SCH (09:46)
[2017-06-19] MEDS: CHOLECALCIFEROL (VITAMIN D3) 400 UNIT TABLET (FP) PO SCH (09:46)
[2017-06-19] MEDS: AZITHROMYCIN 250 MG TABLET PO SCH (09:47)
[2017-06-19] MEDS: RANITIDINE HCL 150 MG TABLET (FP) PO SCH (09:47)
[2017-06-19] MEDS: BUDESONIDE/FORMETEROL FUMARATE 160/4.5 mcg INHALER IH SCH (09:48)
[2017-06-19] MEDS: POLYETHYLENE GLYCOL 3350 119 GM BTL PO SCH (09:49)
[2017-06-19 10:01] VITALS: BP 110/76; PULSE 81; TEMP 97.5
--- NOTE | 2017-06-19 11:09 | PN ---
Progress Note (short form) - Note Progress Note: Pt known to me. CT scan of Brain reviewed. He has a history of nasal polyps and been prescribed Fluticasone spray.No further intervention needed as an inpatient. He can follow-up as an outpatient.
--- NOTE | 2017-06-19 12:27 | PN ---
Progress Note (short form) - Note Progress Note: No acute events overnight. NAD on NC O2. Intake & Output 06/16/17 06/17/17 06/18/17 06/19/17 23:59 23:59 23:59 23:59 Intake Total 900 360 820 40 Output Total 1400 1000 850 400 Balance -500 -640 -30 -360 Last Vital Signs Temp Pulse Resp BP Pulse Ox 97.5 F L 81 18 110/76 99 06/19/17 09:00 06/19/17 09:00 06/19/17 09:00 06/19/17 09:00 06/18/17 21:00 Active Medications Acetaminophen (Tylenol -) 650 mg PO Q4H PRN PRN Reason: FEVER OR PAIN Last Admin: 06/17/17 09:40 Dose: 650 mg Albuterol Sulfate (Ventolin 0.083% Nebulizer Soln -) 1 amp NEB Q4H PRN PRN Reason: SHORT OF BREATH/WHEEZING Last Admin: 06/17/17 22:30 Dose: 1 amp Amoxicillin/Clavulanate Potassium (Augmentin - 500mg Tablet) 1 tab PO BID@0800, 1730 [facility] Last Admin: 06/19/17 09:43 Dose: 1 tab Ascorbic Acid (Vitamin C -) 1,000 mg PO BID [facility] Last Admin: 06/19/17 09:46 Dose: 1,000 mg Aspirin (Asa -) 81 mg PO DAILY [facility] Last Admin: 06/19/17 09:45 Dose: 81 mg Atorvastatin Calcium (Lipitor -) 80 mg PO [facility] Last Admin: 06/18/17 22:34 Dose: 80 mg Azithromycin (Zithromax -) 500 mg PO DAILY [facility] Last Admin: 06/19/17 09:47 Dose: 500 mg Budesonide/Formoterol Fumarate (Symbicort 160/4.5mcg -) 2 puff IH BID [facility] Last Admin: 06/19/17 09:48 Dose: 2 puff Carvedilol (Coreg -) 3.125 mg PO BID [facility] Last Admin: 06/19/17 09:45 Dose: 3.125 mg Cholecalciferol (Vitamin D3 -) 800 unit PO DAILY [facility] Last Admin: 06/19/17 09:46 Dose: 800 unit Docusate Sodium (Colace -) 100 mg PO [facility] Last Admin: 06/18/17 22:33 Dose: 100 mg Ferrous Sulfate (Feosol -) 325 mg PO BIDWM [facility] Last Admin: 06/19/17 09:43 Dose: 325 mg Guaifenesin (Robitussin -) 10 ml PO Q4H PRN PRN Reason: COUGH Leflunomide (Arava -) 20 mg PO DAILY [facility] Last Admin: 06/19/17 09:44 Dose: 20 mg Levothyroxine Sodium (Synthroid -) 50 mcg PO DAILY@0700 [facility] Last Admin: 06/19/17 06:02 Dose: 50 mcg Montelukast Sodium (Singulair -) 10 mg PO HS [facility] Last Admin: 06/18/17 22:34 Dose: 10 mg Multivitamins/Minerals/Vitamin C (Tab-A-Vit -) 1 tab PO DAILY [facility] Last Admin: 06/19/17 09:45 Dose: 1 tab Polyethylene Glycol (Miralax (For Daily Use) -) 17 gm PO DAILY [facility] Last Admin: 06/19/17 09:49 Dose: 17 grams Prednisone (Deltasone -) 20 mg PO DAILY [facility] Last Admin: 06/19/17 09:45 Dose: 20 mg Ranitidine HCl (Zantac -) 150 mg PO BID [facility] Last Admin: 06/19/17 09:47 Dose: 150 mg Constitutional: Yes: NAD, Thin Eyes: Yes: WNL HENT: Yes: WNL Neck: Yes: WNL Cardiovascular: Yes: Regular Rate and Rhythm, S1, S2 Respiratory: Yes: Few scattered rhonchi Gastrointestinal: Yes: Normal Bowel Sounds, Soft Extremities: Yes: WNL Edema: No Labs: Laboratory Results - last 24 hr 06/17/17 06/19/17 06/19/17 05:05 05:05 05:05 WBC 4.9 D RBC 3.27 L Hgb 9.4 L Hct 29.2 L MCV 89.1 MCH 28.8 MCHC 32.3 RDW 16.8 H Plt Count 158 D MPV 7.5 Neutrophils % 70.5 Lymphocytes % 16.4 Monocytes % 11.4 H Eosinophils % 1.3 Basophils % 0.4 Sodium 137 Potassium 4.3 Chloride 100 Carbon Dioxide 32 Anion Gap 5 L BUN 19 H D Creatinine 0.4 L Random Glucose 75 D Calcium 8.0 L Serum Total Protein 5.1 L Albumin 2.2 L Globulin 2.9 Albumin/Globulin Ratio 0.8 Trumm-2-Kghmhekit 0.4 Bhqja-6-Zwxcwxyar 0.9 Beta Globulins 0.7 Gamma Globulins 0.9 IgG 849 IgA 153 IgM 109 ELIJAH M-Cheko Not observed ELIJAH Comments Serum ELIJAH Interpret Problem List - Problems (1) SIRS (systemic inflammatory response syndrome) Code(s): R65.10 - SIRS OF NON-INFECTIOUS ORIGIN W/O ACUTE ORGAN DYSFUNCTION (2) Anemia Code(s): D64.9 - ANEMIA, UNSPECIFIED (3) COPD (chronic obstructive pulmonary disease) Code(s): J44.9 - CHRONIC OBSTRUCTIVE PULMONARY DISEASE, UNSPECIFIED (4) HLD (hyperlipidemia) Code(s): E78.5 - HYPERLIPIDEMIA, UNSPECIFIED (5) HTN (hypertension) Code(s): I10 - ESSENTIAL (PRIMARY) HYPERTENSION (6) Sepsis due to pneumonia Code(s): J18.9 - PNEUMONIA, UNSPECIFIED ORGANISM; A41.9 - SEPSIS, UNSPECIFIED ORGANISM (7) Weakness Code(s): R53.1 - WEAKNESS (8) Troponin I above reference range Code(s): R74.8 - ABNORMAL LEVELS OF OTHER SERUM ENZYMES (9) Anemia Code(s): D64.9 - ANEMIA, UNSPECIFIED (10) Anemia Code(s): D64.9 - ANEMIA, UNSPECIFIED (11) Asthma Code(s): J45.909 - UNSPECIFIED ASTHMA, UNCOMPLICATED Assessment/Plan IMP SIRS RESOLVED BRONCHITIS ADVANCED COPD + TROPONINS ASHD S/P AWMI S/P STENT HTN HLD THORACIC AORTIC ANEURYSM ANEMIA PLAN AUGMENTIN BD TX PRN CURRENT MANAGEMENT NO PULMONARY CONTRAINDICATION FOR D/C DR STEWART
--- NOTE | 2017-06-19 15:22 | DS ---
Physical Examination Vital Signs: Vital Signs Temperature 97.5 F L 06/19/17 09:00 Pulse Rate 81 06/19/17 09:00 Respiratory Rate 18 06/19/17 09:00 Blood Pressure 110/76 06/19/17 09:00 O2 Sat by Pulse Oximetry (%) 99 06/18/17 21:00 Constitutional: Yes: No Distress, Calm Eyes: Yes: Conjunctiva Clear, EOM Intact, PERRL HENT: Yes: Atraumatic, Normocephalic Neck: Yes: Supple, Trachea Midline Cardiovascular: Yes: Regular Rate and Rhythm, S1, S2. No: Murmur Respiratory: Yes: Regular, Diminished. No: Rales, Rhonchi, Wheezes Gastrointestinal: Yes: Normal Bowel Sounds, Soft Edema: No Neurological: Yes: Alert, Oriented, Other ([place]) Labs: CBC, BMP 06/19/17 05:05 06/19/17 05:05 Discharge Summary Reason For Visit: SEPSIS DUE TO PNEUMONIA, AMENIA Current Active Problems Anemia (Acute) Anemia (Acute) Anemia (Acute) Asthma (Acute) COPD (chronic obstructive pulmonary disease) (Acute) DVT prophylaxis (Acute) HLD (hyperlipidemia) (Acute) HTN (hypertension) (Acute) SIRS (systemic inflammatory response syndrome) (Acute) Sepsis due to pneumonia (Acute) Troponin I above reference range (Acute) Weakness (Acute) Hospital Course: 82 yo male, admitted with weakness, COPD exac, found to have NSTEMI as well, likely from sepsis/ bronchial infection. Treated with abx, steroids, breathing treatment. NSTMI treated medically, atorvastatin dose raised for now. Will be on abx 3 more days and get physical therapy for reconditioning at nursing facility. Condition: Stable - Instructions Diet, Activity, Other Instructions: Low cholesterol; no added salt Add Ensure with meals Referrals: Matthias Paez MD [Primary Care Provider] - Alfa Meredith MD [Staff Physician] - Disposition: ALF FACILITY - Home Medications Comprehensive Discharge Medication List: Ambulatory Orders Ascorbic Acid [Vitamin C] 1,000 mg PO DAILY 06/14/17 Aspirin 81 mg PO DAILY 06/14/17 Budesonide/Formeterol Fumarate [SYMBICORT 160/4.5mcg -] 1 inh PO BID 06/14/17 Carvedilol 3.125 mg PO BID 06/14/17 Cholecalciferol (Vitamin D3) [Vitamin D -] 800 unit PO DAILY 06/14/17 Docusate Sodium [Colace] 100 mg PO HS 06/14/17 Docusate Sodium [Colace] 100 mg PO HS 06/14/17 Iron 18 mg PO DAILY 06/14/17 Leflunomide 20 mg PO DAILY 06/14/17 Leflunomide 20 mg PO DAILY 06/14/17 Levothyroxine [Synthroid -] 50 mcg PO DAILY 06/14/17 Montelukast Na [Singulair -] 10 mg PO HS 06/14/17 Montelukast Sodium [Singulair] 10 mg PO HS 06/14/17 Multivitamin [Multiple Vitamins] 1 each PO DAILY 06/14/17 Acetaminophen [Tylenol .Regular Strength -] 650 mg PO Q4H PRN tablet 06/19/17 Albuterol 0.083% Nebulizer Le [Ventolin 0.083% Nebulizer Soln -] 1 amp NEB Q4H PRN amp 06/19/17 Amox-Tr/K Cl [Augmentin 500-125mg Tablet -] 1 tab PO BID@0800,1730 3 Days tablet 06/19/17 Atorvastatin Ca [Lipitor] 80 mg PO HS tablet 06/19/17 Azithromycin [Zithromax 250mg Tablets -] 500 mg PO DAILY tablet 06/19/17 Guaifenesin [Robitussin -] 10 ml PO Q4H PRN cup 06/19/17 Leflunomide [Arava -] 20 mg PO DAILY tablet 06/19/17 Levothyroxine [Synthroid -] 50 mcg PO DAILY@0700 tablet 06/19/17 Polyethylene Glycol 3350 [Miralax 119 gm Btl -] 17 gm PO DAILY bottle 06/19/17 Prednisone [Deltasone -] 20 mg PO DAILY tablet 06/19/17
--- NOTE | 2017-06-19 15:31 | PN ---
Progress Note, Physician History of Present Illness: feeling better no complaints breathing better plan to be transferred to rehab - Current Medication List Current Medications: Active Medications Acetaminophen (Tylenol -) 650 mg PO Q4H PRN PRN Reason: FEVER OR PAIN Last Admin: 06/17/17 09:40 Dose: 650 mg Albuterol Sulfate (Ventolin 0.083% Nebulizer Soln -) 1 amp NEB Q4H PRN PRN Reason: SHORT OF BREATH/WHEEZING Last Admin: 06/17/17 22:30 Dose: 1 amp Amoxicillin/Clavulanate Potassium (Augmentin - 500mg Tablet) 1 tab PO BID@0800, 1730 [facility] Last Admin: 06/19/17 09:43 Dose: 1 tab Ascorbic Acid (Vitamin C -) 1,000 mg PO BID [facility] Last Admin: 06/19/17 09:46 Dose: 1,000 mg Aspirin (Asa -) 81 mg PO DAILY [facility] Last Admin: 06/19/17 09:45 Dose: 81 mg Atorvastatin Calcium (Lipitor -) 80 mg PO [facility] Last Admin: 06/18/17 22:34 Dose: 80 mg Azithromycin (Zithromax -) 500 mg PO DAILY [facility] Last Admin: 06/19/17 09:47 Dose: 500 mg Budesonide/Formoterol Fumarate (Symbicort 160/4.5mcg -) 2 puff IH BID [facility] Last Admin: 06/19/17 09:48 Dose: 2 puff Carvedilol (Coreg -) 3.125 mg PO BID [facility] Last Admin: 06/19/17 09:45 Dose: 3.125 mg Cholecalciferol (Vitamin D3 -) 800 unit PO DAILY [facility] Last Admin: 06/19/17 09:46 Dose: 800 unit Docusate Sodium (Colace -) 100 mg PO HS [facility] Last Admin: 06/18/17 22:33 Dose: 100 mg Ferrous Sulfate (Feosol -) 325 mg PO BIDWM [facility] Last Admin: 06/19/17 09:43 Dose: 325 mg Guaifenesin (Robitussin -) 10 ml PO Q4H PRN PRN Reason: COUGH Leflunomide (Arava -) 20 mg PO DAILY [facility] Last Admin: 06/19/17 09:44 Dose: 20 mg Levothyroxine Sodium (Synthroid -) 50 mcg PO DAILY@0700 [facility] Last Admin: 06/19/17 06:02 Dose: 50 mcg Montelukast Sodium (Singulair -) 10 mg PO HS [facility] Last Admin: 06/18/17 22:34 Dose: 10 mg Multivitamins/Minerals/Vitamin C (Tab-A-Vit -) 1 tab PO DAILY [facility] Last Admin: 06/19/17 09:45 Dose: 1 tab Polyethylene Glycol (Miralax (For Daily Use) -) 17 gm PO DAILY [facility] Last Admin: 06/19/17 09:49 Dose: 17 grams Prednisone (Deltasone -) 20 mg PO DAILY [facility] Last Admin: 06/19/17 09:45 Dose: 20 mg Ranitidine HCl (Zantac -) 150 mg PO BID [facility] Last Admin: 06/19/17 09:47 Dose: 150 mg - Objective Vital Signs: Vital Signs Temperature 97.5 F L 06/19/17 09:00 Pulse Rate 81 06/19/17 09:00 Respiratory Rate 18 06/19/17 09:00 Blood Pressure 110/76 06/19/17 09:00 O2 Sat by Pulse Oximetry (%) 99 06/18/17 21:00 Constitutional: Yes: No Distress, Calm, Thin Cardiovascular: Yes: Regular Rate and Rhythm Respiratory: Yes: Poor Air Entry, Other Gastrointestinal: Yes: Normal Bowel Sounds, Soft Musculoskeletal: Yes: WNL Extremities: Yes: WNL Neurological: Yes: Alert, Oriented Psychiatric: Yes: Alert, Oriented Labs: CBC, BMP 06/19/17 05:05 06/19/17 05:05 INR, PTT INR 1.17 (0.82-1.09) H 06/14/17 07:00 Assessment/Plan after evaluating the patient i think this multifactorial,patient has some cardiac issue going on and possibilty of pneumonia is also there though i do not see any specific findings in the xray patient has been started on ceftriaxone and zithro and he is stable Problem List - Problems (1) SIRS (systemic inflammatory response syndrome) Code(s): R65.10 - SIRS OF NON-INFECTIOUS ORIGIN W/O ACUTE ORGAN DYSFUNCTION (2) Anemia Code(s): D64.9 - ANEMIA, UNSPECIFIED (3) COPD (chronic obstructive pulmonary disease) Code(s): J44.9 - CHRONIC OBSTRUCTIVE PULMONARY DISEASE, UNSPECIFIED (4) HLD (hyperlipidemia) Code(s): E78.5 - HYPERLIPIDEMIA, UNSPECIFIED (5) HTN (hypertension) Code(s): I10 - ESSENTIAL (PRIMARY) HYPERTENSION (6) Sepsis due to pneumonia Code(s): J18.9 - PNEUMONIA, UNSPECIFIED ORGANISM; A41.9 - SEPSIS, UNSPECIFIED ORGANISM (7) Weakness Code(s): R53.1 - WEAKNESS (8) Troponin I above reference range Code(s): R74.8 - ABNORMAL LEVELS OF OTHER SERUM ENZYMES (9) Anemia Code(s): D64.9 - ANEMIA, UNSPECIFIED (10) Anemia Code(s): D64.9 - ANEMIA, UNSPECIFIED (11) Asthma Code(s): J45.909 - UNSPECIFIED ASTHMA, UNCOMPLICATED plan can stop abx after 2 more days physio rest as per primary team
== END 2017-06-19 15:20 | DRG 871 ==
LOC: JER 21:35 → JERBED 06-14 02:08 → UNDOADMIN 06-14 02:13 → J7W 06-14 05:18 → J4W 06-14 10:21
PROVIDERS: ADMIT Internal Medicine; ATTEND Internal Medicine
DX: A41.9 Sepsis, unspecified organism (principal); I21.4 Non-ST elevation (NSTEMI) myocardial infarction; J18.9 Pneumonia, unspecified organism; J44.1 Chronic obstructive pulmonary disease with (acute) exacerbation; E78.5 Hyperlipidemia, unspecified; I10 Essential (primary) hypertension; R53.1 Weakness; J40 Bronchitis, not specified as acute or chronic; I25.10 Atherosclerotic heart disease of native coronary artery without angina pectoris; Z98.61 Coronary angioplasty status; D50.9 Iron deficiency anemia, unspecified; M06.9 Rheumatoid arthritis, unspecified; J45.909 Unspecified asthma, uncomplicated
CPT/HCPCS: 36415; 36430; 70450-TC; 71010-TC; 71250-TC; 80048; 80053; 81003; 82272; 82550; 82728; 82784; 82803; 83540; 83550; 83605; 83735; 83880; 84100; 84134; 84155; 84165; 84439; 84443; 84481; 84484; 85025; 85027; 85610; 85730; 86334; 86850; 86900; 86901; 86922; 87040; 87086; 87186; 87804; 87899; 93005; 93010; 93306-TC; 93880-TC; 94640; 97116-GP; 97162-GP; 99283-25; P9038; P9058

== ENCOUNTER 2017-10-01 13:30 | Inpatient (IN) | payer OTHER, BC ==
[2017-10-02 03:52] VITALS: BMI 20.3
[2017-10-04 08:27] VITALS: PULSE 82; TEMP 97.5
[2017-10-04 11:42] VITALS: BP 107/76
== END 2017-10-04 14:34 | disposition home health service (06) | DRG 377 ==
LOC: JER 13:30 → JERBED 17:02 → OBSVTOIN 22:33 → J6S 10-02 01:15
PROVIDERS: ADMIT Internal Medicine; ATTEND Specialist
DX: K92.2 Gastrointestinal hemorrhage, unspecified (principal); L89.313 Pressure ulcer of right buttock, stage 3; J44.9 Chronic obstructive pulmonary disease, unspecified; E78.5 Hyperlipidemia, unspecified; I10 Essential (primary) hypertension; E03.9 Hypothyroidism, unspecified; M06.9 Rheumatoid arthritis, unspecified; R10.9 Unspecified abdominal pain; D64.9 Anemia, unspecified; I25.10 Atherosclerotic heart disease of native coronary artery without angina pectoris; Z98.61 Coronary angioplasty status
CPT/HCPCS: 11042; 36415; 71045-TC-FY; 74176-TC; 76775-TC; 80053; 81003; 82272; 83605; 83690; 83735; 84484; 85025; 85027; 87086; 93005; 93010; 97116-GP; 97161-GP; 99285-25; G0378

== ENCOUNTER 2021-05-27 21:07 | Inpatient (IN) | payer OTHER, BC ==
[2021-05-27] MEDS ORDERED: SODIUM CHLORIDE 2,041 ML IV ONE (21:23)
[2021-05-27] MEDS ORDERED: SODIUM CHLORIDE 0.9% 500 ML INFUS.BAG IV ONE (21:56)
[2021-05-27 22:23] LABS: BASO % 0.7 % (0-2.0); EOS % 1.6 % (0-4.5); HEMATOCRIT 34.1 % (35.4-49); HEMOGLOBIN 11.5 GM/dL (11.7-16.9); LYMPH % 6.3 % (8-40); MCH 32.3 pg (25.7-33.7); MCHC 33.7 g/dl (32.0-35.9); MEAN CELL VOLUME 95.9 fl (80-96); MEAN PLT VOLUME 7.3 fl (7.5-11.1); MONO % 10.6 % (3.8-10.2); NEUT % 80.8 % (42.8-82.8); PLATELET COUNT 133 10^3/uL (134-434); RBC 3.56 M/mm3 (4.00-5.60); RDW 15.7 % (11.9-15.9); VENOUS BASE EXCESS -1.4 mmol/L (-2-2); VENOUS PCO2 36.2 mmHg (38-52); VENOUS PH 7.415 (7.310-7.410); WHITE BLOOD COUNT 8.2 K/mm3 (4.0-10.0)
[2021-05-27 22:31] LABS: INR 1.34 (0.83-1.09)
[2021-05-27 22:44] LABS: CALCIUM 8.1 mg/dL (8.5-10.1)
[2021-05-27 22:45] LABS: ALBUMIN 2.7 g/dl (3.4-5.0); BLOOD UREA NITROGEN 25.9 mg/dL (7-18)
[2021-05-27 22:48] LABS: CREATININE 0.9 mg/dL (0.55-1.3)
[2021-05-27 22:50] LABS: LACTIC ACID 2.1 mmol/L (0.4-2.0); TOT PROT 5.8 g/dl (6.4-8.2)
[2021-05-27] MEDS ORDERED: VANCOMYCIN 1 GM in D5W (PRE-DOCKED) 1,000 MG/250 ML IVPB ONE (23:18)
[2021-05-27] MEDS ORDERED: PIPERACILLIN/TAZOB 4.5 GM 4.5 GM in DEXTROSE 5%-WATER 100 ML IVPB ONE (23:18)
[2021-05-27] MEDS ORDERED: ASPIRIN 81 MG CHEWABLE TABLETS PO ONE (23:52)
[2021-05-28] MEDS ORDERED: PIPERACILLIN/TAZOB 4.5 GM 4.5 GM/100 ML BAG IVPB ONE ×2 (00:03→08:21)
[2021-05-28] MEDS ORDERED: VANCOMYCIN 1 GRAM (PRE-DOCKED) 1,000 MG/250 ML BAG IVPB ONE (00:03)
[2021-05-28] MEDS ORDERED: ASPIRIN 81 MG CHEWABLE TABLETS ONE (00:08)
[2021-05-28] MEDS ORDERED: SODIUM CHLORIDE 500 ML IV STA (02:43)
[2021-05-28] MEDS ORDERED: SODIUM CHLORIDE 1,000 ML IV SCH ×2 (02:45→09:45)
[2021-05-28] MEDS ORDERED: ALBUTEROL SO4 2.5/IPRATROPIUM 0.5 INH SOL 3 ML VIAL.NEB. NEB PRN (02:49)
[2021-05-28] MEDS ORDERED: ALBUTEROL SO4 0.083% IH SOL 2.5 MG/3 ML VIAL.NEB. NEB PRN (02:53)
[2021-05-28] MEDS ORDERED: PIPERACILLIN/TAZOB 4.5 GM 4.5 GM in DEXTROSE 5%-WATER 100 ML IVPB SCH ×2 (03:00→03:46)
[2021-05-28] MEDS: ALBUTEROL SO4 2.5/IPRATROPIUM 0.5 INH SOL 3 ML VIAL.NEB. NEB SCH ×4 (05:12→22:00)
[2021-05-28] MEDS ORDERED: ASPIRIN COATED 81 MG TABLET.EC ONE (08:20)
[2021-05-28] MEDS ORDERED: ENOXAPARIN NA (PORCINE) 40 MG/0.4 ML DISP.SYRIN SQ ONE (08:21)
[2021-05-28] MEDS ORDERED: AZITHROMYCIN IVPB 500 MG/250 ML BAG IVPB ONE ×2 (08:21→10:00)
[2021-05-28] MEDS: ENOXAPARIN NA (PORCINE) 40 MG/0.4 ML DISP.SYRIN SQ SCH (09:14)
[2021-05-28] MEDS: ASPIRIN COATED 81 MG TABLET.EC PO SCH (09:14)
[2021-05-28] MEDS ORDERED: guaiFENesin/D-M SUGAR-FREE/ACLHOL-FREE 118 ML BOTTLE PO PRN (09:16)
[2021-05-28] MEDS ORDERED: DOXYCYCLINE HYCLATE 100 MG CAPSULE PO SCH (10:00)
[2021-05-28] MEDS ORDERED: CEFTRIAXONE 1 GM in DEXTROSE 5%-WATER - 50 ML IVPB SCH (10:00)
[2021-05-28] MEDS ORDERED: VANCOMYCIN 1 GM in D5W (PRE-DOCKED) 1,000 MG/250 ML IVPB SCH ×3 (10:00)
[2021-05-28] MEDS ORDERED: LEVOTHYROXINE NA 25 MCG TABLET (FP) ONE (10:03)
[2021-05-28] MEDS: LEVOTHYROXINE NA 50 MCG TABLET (FP) PO SCH (10:07)
[2021-05-28] MEDS ORDERED: methylPREDNISolone NA SUCC 40 MG/1 ML VIAL IVPUSH ONE (10:15)
[2021-05-28] MEDS ORDERED: methylPREDNISolone NA SUCC 40 MG/1 ML VIAL ONE (10:21)
[2021-05-28] MEDS: BUDESONIDE/FORMETEROL FUMARATE 160/4.5 mcg INHALER IH SCH ×2 (12:29→23:02)
[2021-05-28 13:45] LABS: URINE APPEARANCE CLEAR; URINE BILIRUBIN NEGATIVE (NEGATIVE); URINE COLOR DK YELLOW; URINE GLUCOSE (UA) NEGATIVE (NEGATIVE); URINE KETONE TRACE (NEGATIVE); URINE LEUK ESTERASE NEGATIVE (NEGATIVE); URINE NITRITE NEGATIVE (NEGATIVE); URINE PROTEIN TRACE (NEGATIVE); URINE UROBILINOGEN 0.2 mg/dL (0.2-1.0)
[2021-05-28 14:28] VITALS: BMI 25.7
[2021-05-28] MEDS ORDERED: PIPERACILLIN/TAZOBACTAM 3.375 GM VIAL IVPB ONE (16:24)
[2021-05-28] MEDS ORDERED: DEXTROSE 5%-WATER - 50 ML IVPB ONE (16:25)
[2021-05-28] MEDS ORDERED: PT OWN MED DRAWER 7, Y5N ONE ×2 (16:47→17:09)
[2021-05-28] MEDS: PIPERACILLIN/TAZOB 3.375 GM 3.375 GM in DEXTROSE 5%-WATER - 50 ML IVPB SCH (17:07)
[2021-05-28] MEDS: methylPREDNISolone NA SUCC 40 MG/1 ML VIAL IVPUSH SCH (22:02)
[2021-05-28] MEDS: MONTELUKAST NA 10 MG TABLET PO SCH (22:04)
[2021-05-28] MEDS: CARVEDILOL 3.125 MG TABLET (FP) PO SCH (22:04)
[2021-05-28] MEDS: ATORVASTATIN CA 40 MG TABLET (FP) PO SCH (22:05)
[2021-05-29] MEDS ORDERED: PT OWN MED DRAWER 7, Y5N ONE (02:53)
[2021-05-29] MEDS ORDERED: PIPERACILLIN/TAZOBACTAM 3.375 GM VIAL IVPB ONE ×3 (02:53→17:03)
[2021-05-29] MEDS ORDERED: DEXTROSE 5%-WATER - 50 ML IVPB ONE ×3 (02:54→17:04)
[2021-05-29] MEDS: methylPREDNISolone NA SUCC 40 MG/1 ML VIAL IVPUSH SCH ×3 (02:56→17:12)
[2021-05-29] MEDS: PIPERACILLIN/TAZOB 3.375 GM 3.375 GM in DEXTROSE 5%-WATER - 50 ML IVPB SCH ×3 (02:56→17:12)
[2021-05-29] MEDS ORDERED: PIPERACILLIN/TAZOB 4.5 GM 4.5 GM in DEXTROSE 5%-WATER 100 ML IVPB SCH (03:00)
[2021-05-29] MEDS: VANCOMYCIN/WATER BAGS 1,250 MG/250 ML BAG IVPB SCH (04:34)
[2021-05-29] MEDS: ALBUTEROL SO4 2.5/IPRATROPIUM 0.5 INH SOL 3 ML VIAL.NEB. NEB SCH ×5 (04:50→20:30)
[2021-05-29] MEDS: LEVOTHYROXINE NA 50 MCG TABLET (FP) PO SCH (06:29)
[2021-05-29 07:00] LABS: HEMATOCRIT 30.4 % (35.4-49); HEMOGLOBIN 10.5 GM/dL (11.7-16.9); MCH 32.9 pg (25.7-33.7); MCHC 34.7 g/dl (32.0-35.9); MEAN PLT VOLUME 7.6 fl (7.5-11.1); PLATELET COUNT 129 10^3/uL (134-434); RDW 15.6 % (11.9-15.9); WHITE BLOOD COUNT 8.1 K/mm3 (4.0-10.0)
[2021-05-29 07:15] LABS: CALCIUM 7.2 mg/dL (8.5-10.1)
[2021-05-29 07:16] LABS: ALBUMIN 2.2 g/dl (3.4-5.0); BLOOD UREA NITROGEN 22.3 mg/dL (7-18)
[2021-05-29 07:19] LABS: CREATININE 0.7 mg/dL (0.55-1.3); PHOSPHOROUS 3.4 mg/dL (2.5-4.9)
[2021-05-29 07:20] LABS: TOT PROT 5.3 g/dl (6.4-8.2)
[2021-05-29 08:55] LABS: ANISOCYTOSIS 1+; MACROCYTOSIS 0; PLATELET ESTIMATE DECREASED
[2021-05-29] MEDS ORDERED: AZITHROMYCIN IVPB 250 MG/125 ML BAG IVPB SCH (10:00)
[2021-05-29] MEDS: CARVEDILOL 3.125 MG TABLET (FP) PO SCH ×2 (10:51→21:22)
[2021-05-29] MEDS: ASPIRIN COATED 81 MG TABLET.EC PO SCH (10:51)
[2021-05-29] MEDS: ENOXAPARIN NA (PORCINE) 40 MG/0.4 ML DISP.SYRIN SQ SCH (10:51)
[2021-05-29] MEDS: guaiFENesin/D-METHORPHAN HB 10 ML UNIT-DOSE CUPS PO PRN ×2 (11:03→20:23)
[2021-05-29] MEDS: BUDESONIDE/FORMETEROL FUMARATE 160/4.5 mcg INHALER IH SCH ×2 (11:03→21:22)
[2021-05-29] MEDS: ATORVASTATIN CA 40 MG TABLET (FP) PO SCH (21:22)
[2021-05-29] MEDS: MONTELUKAST NA 10 MG TABLET PO SCH (21:22)
[2021-05-30] MEDS: VANCOMYCIN/WATER BAGS 1,250 MG/250 ML BAG IVPB SCH (00:19)
[2021-05-30] MEDS ORDERED: PIPERACILLIN/TAZOBACTAM 3.375 GM VIAL IVPB ONE ×3 (01:20→16:37)
[2021-05-30] MEDS ORDERED: DEXTROSE 5%-WATER - 50 ML IVPB ONE ×3 (01:21→16:37)
[2021-05-30] MEDS: methylPREDNISolone NA SUCC 40 MG/1 ML VIAL IVPUSH SCH ×3 (01:38→17:00)
[2021-05-30] MEDS: PIPERACILLIN/TAZOB 3.375 GM 3.375 GM in DEXTROSE 5%-WATER - 50 ML IVPB SCH ×3 (01:38→17:00)
[2021-05-30] MEDS: LEVOTHYROXINE NA 50 MCG TABLET (FP) PO SCH (06:03)
[2021-05-30 08:17] LABS: HEMATOCRIT 28.3 % (35.4-49); HEMOGLOBIN 9.7 GM/dL (11.7-16.9); MCH 32.6 pg (25.7-33.7); MCHC 34.2 g/dl (32.0-35.9); MEAN CELL VOLUME 95.4 fl (80-96); MEAN PLT VOLUME 7.6 fl (7.5-11.1); PLATELET COUNT 131 10^3/uL (134-434); RBC 2.97 M/mm3 (4.00-5.60); RDW 15.9 % (11.9-15.9); WHITE BLOOD COUNT 9.1 K/mm3 (4.0-10.0)
[2021-05-30 08:38] LABS: CALCIUM 7.5 mg/dL (8.5-10.1)
[2021-05-30 08:39] LABS: BLOOD UREA NITROGEN 27.6 mg/dL (7-18); MAGNESIUM 2.5 mg/dL (1.8-2.4)
[2021-05-30 08:42] LABS: CREATININE 0.7 mg/dL (0.55-1.3); PHOSPHOROUS 3.5 mg/dL (2.5-4.9)
[2021-05-30] MEDS: ALBUTEROL SO4 2.5/IPRATROPIUM 0.5 INH SOL 3 ML VIAL.NEB. NEB SCH ×4 (08:43→20:05)
[2021-05-30 09:26] LABS: ANISOCYTOSIS 0; HELMET CELLS 0; HOWELL-JOLLY BODIES 0; MACROCYTOSIS 0; OVALOCYTE 0; PLATELET ESTIMATE DECREASED; ROULEAU 0; SICKELED CELLS 0; TARGET CELLS 0; TEAR DROP CELLS 0; TOXIC GRANULATION 0
[2021-05-30] MEDS: CARVEDILOL 3.125 MG TABLET (FP) PO SCH ×2 (11:13→21:09)
[2021-05-30] MEDS: ENOXAPARIN NA (PORCINE) 40 MG/0.4 ML DISP.SYRIN SQ SCH (11:13)
[2021-05-30] MEDS: ASPIRIN COATED 81 MG TABLET.EC PO SCH (11:13)
[2021-05-30] MEDS: BUDESONIDE/FORMETEROL FUMARATE 160/4.5 mcg INHALER IH SCH ×2 (11:14→21:25)
[2021-05-30] MEDS: guaiFENesin/D-METHORPHAN HB 10 ML UNIT-DOSE CUPS PO PRN (11:14)
[2021-05-30] MEDS ORDERED: LORazepam 0.5 MG TABLET PO PRN (16:56)
[2021-05-30] MEDS: ATORVASTATIN CA 40 MG TABLET (FP) PO SCH (21:09)
[2021-05-30] MEDS: MONTELUKAST NA 10 MG TABLET PO SCH (21:09)
[2021-05-31] MEDS: VANCOMYCIN/WATER BAGS 1,250 MG/250 ML BAG IVPB SCH (00:37)
[2021-05-31] MEDS ORDERED: PIPERACILLIN/TAZOBACTAM 3.375 GM VIAL IVPB ONE ×3 (01:12→17:26)
[2021-05-31] MEDS ORDERED: DEXTROSE 5%-WATER - 50 ML IVPB ONE ×3 (01:12→17:26)
[2021-05-31] MEDS: methylPREDNISolone NA SUCC 40 MG/1 ML VIAL IVPUSH SCH ×2 (01:16→19:46)
[2021-05-31] MEDS: PIPERACILLIN/TAZOB 3.375 GM 3.375 GM in DEXTROSE 5%-WATER - 50 ML IVPB SCH ×3 (01:16→17:28)
[2021-05-31] MEDS: LEVOTHYROXINE NA 50 MCG TABLET (FP) PO SCH (06:18)
[2021-05-31 07:14] LABS: HEMOGLOBIN 10.1 GM/dL (11.7-16.9); MCHC 33.6 g/dl (32.0-35.9); MEAN CELL VOLUME 95.2 fl (80-96); MEAN PLT VOLUME 7.5 fl (7.5-11.1); PLATELET COUNT 133 10^3/uL (134-434); RBC 3.15 M/mm3 (4.00-5.60); RDW 15.7 % (11.9-15.9); WHITE BLOOD COUNT 8.7 K/mm3 (4.0-10.0)
[2021-05-31 07:19] LABS: CALCIUM 7.6 mg/dL (8.5-10.1)
[2021-05-31 07:20] LABS: BLOOD UREA NITROGEN 37.3 mg/dL (7-18); MAGNESIUM 2.9 mg/dL (1.8-2.4)
[2021-05-31 07:23] LABS: CREATININE 0.8 mg/dL (0.55-1.3); PHOSPHOROUS 3.6 mg/dL (2.5-4.9)
[2021-05-31] MEDS: ALBUTEROL SO4 2.5/IPRATROPIUM 0.5 INH SOL 3 ML VIAL.NEB. NEB SCH ×4 (07:25→20:06)
[2021-05-31] MEDS ORDERED: PT OWN MED DRAWER 7, Y5N ONE ×2 (09:50→22:47)
[2021-05-31] MEDS: ASPIRIN COATED 81 MG TABLET.EC PO SCH (09:57)
[2021-05-31] MEDS: CARVEDILOL 3.125 MG TABLET (FP) PO SCH ×2 (09:57→21:22)
[2021-05-31] MEDS: ENOXAPARIN NA (PORCINE) 40 MG/0.4 ML DISP.SYRIN SQ SCH (09:57)
[2021-05-31] MEDS: BUDESONIDE/FORMETEROL FUMARATE 160/4.5 mcg INHALER IH SCH ×2 (09:58→21:21)
[2021-05-31] MEDS ORDERED: methylPREDNISolone NA SUCC 40 MG/1 ML VIAL IVPUSH SCH (10:00)
[2021-05-31] MEDS: guaiFENesin/D-METHORPHAN HB 10 ML UNIT-DOSE CUPS PO PRN (10:08)
[2021-05-31 10:52] LABS: ANISOCYTOSIS 1+; MACROCYTOSIS 0; OVALOCYTE 1+; PLATELET ESTIMATE DECREASED
[2021-05-31] MEDS ORDERED: MELATONIN 5 MG TABLETS PO PRN (12:32)
[2021-05-31] MEDS ORDERED: FUROSEMIDE 40 MG/4 ML INJECTABLE VIAL IVPUSH SCH (12:45)
[2021-05-31] MEDS ORDERED: LORazepam 2 MG/ML SDV VIAL IVPUSH ONE (13:21)
[2021-05-31] MEDS: guaiFENesin/D-METHORPHAN HB 10 ML UNIT-DOSE CUPS PO SCH ×2 (17:28→21:23)
[2021-05-31] MEDS: ATORVASTATIN CA 40 MG TABLET (FP) PO SCH (21:22)
[2021-05-31] MEDS: LORazepam 0.5 MG TABLET PO PRN (21:22)
[2021-05-31] MEDS: MONTELUKAST NA 10 MG TABLET PO SCH (21:23)
[2021-06-01] MEDS: VANCOMYCIN/WATER BAGS 1,250 MG/250 ML BAG IVPB SCH (00:32)
[2021-06-01] MEDS ORDERED: PIPERACILLIN/TAZOBACTAM 3.375 GM VIAL IVPB ONE ×3 (00:34→18:08)
[2021-06-01] MEDS ORDERED: DEXTROSE 5%-WATER - 50 ML IVPB ONE ×3 (00:34→18:08)
[2021-06-01] MEDS: methylPREDNISolone NA SUCC 40 MG/1 ML VIAL IVPUSH SCH ×3 (01:05→19:38)
[2021-06-01] MEDS: PIPERACILLIN/TAZOB 3.375 GM 3.375 GM in DEXTROSE 5%-WATER - 50 ML IVPB SCH ×3 (01:05→19:38)
[2021-06-01] MEDS: guaiFENesin/D-METHORPHAN HB 10 ML UNIT-DOSE CUPS PO SCH ×5 (03:47→22:21)
[2021-06-01] MEDS: LEVOTHYROXINE NA 50 MCG TABLET (FP) PO SCH (06:04)
[2021-06-01 08:21] LABS: HEMATOCRIT 31.5 % (35.4-49); HEMOGLOBIN 10.7 GM/dL (11.7-16.9); MCH 32.1 pg (25.7-33.7); MCHC 34.1 g/dl (32.0-35.9); MEAN CELL VOLUME 94.2 fl (80-96); MEAN PLT VOLUME 7.5 fl (7.5-11.1); PLATELET COUNT 147 10^3/uL (134-434); RBC 3.34 M/mm3 (4.00-5.60); RDW 15.6 % (11.9-15.9); WHITE BLOOD COUNT 9.5 K/mm3 (4.0-10.0)
[2021-06-01 08:37] LABS: BLOOD UREA NITROGEN 37.2 mg/dL (7-18); CALCIUM 7.5 mg/dL (8.5-10.1); MAGNESIUM 2.7 mg/dL (1.8-2.4)
[2021-06-01 08:40] LABS: PHOSPHOROUS 3.8 mg/dL (2.5-4.9)
[2021-06-01 08:42] LABS: CREATININE 0.8 mg/dL (0.55-1.3)
[2021-06-01] MEDS: ALBUTEROL SO4 2.5/IPRATROPIUM 0.5 INH SOL 3 ML VIAL.NEB. NEB SCH ×4 (08:50→20:10)
[2021-06-01] MEDS: ENOXAPARIN NA (PORCINE) 40 MG/0.4 ML DISP.SYRIN SQ SCH (10:10)
[2021-06-01] MEDS: CARVEDILOL 3.125 MG TABLET (FP) PO SCH ×2 (10:10→22:21)
[2021-06-01] MEDS: ASPIRIN COATED 81 MG TABLET.EC PO SCH (10:10)
[2021-06-01] MEDS: BUDESONIDE/FORMETEROL FUMARATE 160/4.5 mcg INHALER IH SCH ×2 (10:25→22:22)
[2021-06-01 11:07] LABS: ANISOCYTOSIS 0; HELMET CELLS 0; HOWELL-JOLLY BODIES 0; MACROCYTOSIS 0; OVALOCYTE 0; PLATELET ESTIMATE DECREASED; ROULEAU 0; SICKELED CELLS 0; TARGET CELLS 0; TEAR DROP CELLS 0; TOXIC GRANULATION 0
[2021-06-01] MEDS: MONTELUKAST NA 10 MG TABLET PO SCH (22:21)
[2021-06-01] MEDS: LORazepam 0.5 MG TABLET PO PRN (22:21)
[2021-06-01] MEDS: ATORVASTATIN CA 40 MG TABLET (FP) PO SCH (22:21)
[2021-06-02] MEDS ORDERED: PT OWN MED DRAWER 7, Y5N ONE (00:40)
[2021-06-02] MEDS ORDERED: PIPERACILLIN/TAZOBACTAM 3.375 GM VIAL IVPB ONE ×3 (00:40→16:38)
[2021-06-02] MEDS ORDERED: DEXTROSE 5%-WATER - 50 ML IVPB ONE ×3 (00:41→16:38)
[2021-06-02] MEDS: VANCOMYCIN/WATER BAGS 1,250 MG/250 ML BAG IVPB SCH (00:46)
[2021-06-02] MEDS: methylPREDNISolone NA SUCC 40 MG/1 ML VIAL IVPUSH SCH ×3 (01:12→17:33)
[2021-06-02] MEDS: PIPERACILLIN/TAZOB 3.375 GM 3.375 GM in DEXTROSE 5%-WATER - 50 ML IVPB SCH ×3 (01:13→17:33)
[2021-06-02] MEDS: guaiFENesin/D-METHORPHAN HB 10 ML UNIT-DOSE CUPS PO SCH ×4 (03:10→21:52)
[2021-06-02] MEDS ORDERED: ALBUTEROL SO4 2.5/IPRATROPIUM 0.5 INH SOL 3 ML VIAL.NEB. NEB ONE (06:00)
[2021-06-02] MEDS: LEVOTHYROXINE NA 50 MCG TABLET (FP) PO SCH (06:45)
[2021-06-02 07:27] LABS: HEMATOCRIT 34.1 % (35.4-49); HEMOGLOBIN 11.5 GM/dL (11.7-16.9); MCH 32.3 pg (25.7-33.7); MCHC 33.8 g/dl (32.0-35.9); MEAN CELL VOLUME 95.7 fl (80-96); MEAN PLT VOLUME 7.9 fl (7.5-11.1); PLATELET COUNT 164 10^3/uL (134-434); RBC 3.57 M/mm3 (4.00-5.60); RDW 15.8 % (11.9-15.9); WHITE BLOOD COUNT 12.6 K/mm3 (4.0-10.0)
[2021-06-02 07:48] LABS: CALCIUM 7.7 mg/dL (8.5-10.1)
[2021-06-02 07:49] LABS: MAGNESIUM 2.6 mg/dL (1.8-2.4)
[2021-06-02 07:53] LABS: CREATININE 0.8 mg/dL (0.55-1.3); PHOSPHOROUS 3.5 mg/dL (2.5-4.9)
[2021-06-02] MEDS: ALBUTEROL SO4 2.5/IPRATROPIUM 0.5 INH SOL 3 ML VIAL.NEB. NEB SCH ×4 (07:57→20:10)
[2021-06-02] MEDS: ASPIRIN COATED 81 MG TABLET.EC PO SCH (10:00)
[2021-06-02] MEDS: BUDESONIDE/FORMETEROL FUMARATE 160/4.5 mcg INHALER IH SCH ×2 (10:00→21:53)
[2021-06-02] MEDS: ENOXAPARIN NA (PORCINE) 40 MG/0.4 ML DISP.SYRIN SQ SCH (10:00)
[2021-06-02] MEDS: CARVEDILOL 3.125 MG TABLET (FP) PO SCH ×2 (10:00→21:52)
[2021-06-02 11:03] LABS: ANISOCYTOSIS 0; MACROCYTOSIS 0; PLATELET ESTIMATE NORMAL
[2021-06-02] MEDS ORDERED: ALBUTEROL SO4 0.5 % INH SOLN 2.5 MG/0.5 ML VIAL.NEB. NEB PRN (13:35)
[2021-06-02] MEDS ORDERED: ALBUTEROL SO4 2.5/IPRATROPIUM 0.5 INH SOL 3 ML VIAL.NEB. NEB SCH (16:00)
[2021-06-02] MEDS: MONTELUKAST NA 10 MG TABLET PO SCH (21:52)
[2021-06-02] MEDS: ATORVASTATIN CA 40 MG TABLET (FP) PO SCH (21:52)
[2021-06-02] MEDS: LORazepam 0.5 MG TABLET PO PRN (21:54)
[2021-06-03] MEDS ORDERED: PIPERACILLIN/TAZOBACTAM 3.375 GM VIAL IVPB ONE ×3 (01:51→16:43)
[2021-06-03] MEDS ORDERED: DEXTROSE 5%-WATER - 50 ML IVPB ONE ×3 (01:51→16:43)
[2021-06-03] MEDS: VANCOMYCIN/WATER BAGS 1,250 MG/250 ML BAG IVPB SCH (02:01)
[2021-06-03] MEDS: methylPREDNISolone NA SUCC 40 MG/1 ML VIAL IVPUSH SCH ×3 (02:02→17:24)
[2021-06-03] MEDS: PIPERACILLIN/TAZOB 3.375 GM 3.375 GM in DEXTROSE 5%-WATER - 50 ML IVPB SCH ×3 (02:02→17:48)
[2021-06-03] MEDS: guaiFENesin/D-METHORPHAN HB 10 ML UNIT-DOSE CUPS PO SCH ×4 (04:02→21:17)
[2021-06-03] MEDS: LEVOTHYROXINE NA 50 MCG TABLET (FP) PO SCH (06:48)
[2021-06-03 07:13] LABS: HEMATOCRIT 30.5 % (35.4-49); HEMOGLOBIN 10.4 GM/dL (11.7-16.9); MCH 32.7 pg (25.7-33.7); MEAN CELL VOLUME 96.1 fl (80-96); PLATELET COUNT 131 10^3/uL (134-434); RBC 3.17 M/mm3 (4.00-5.60); RDW 15.9 % (11.9-15.9)
[2021-06-03] MEDS ORDERED: SODIUM CHLORIDE 1,000 ML IV SCH (07:15)
[2021-06-03 07:23] LABS: BLOOD UREA NITROGEN 40.6 mg/dL (7-18); CALCIUM 7.6 mg/dL (8.5-10.1)
[2021-06-03 07:26] LABS: CREATININE 0.5 mg/dL (0.55-1.3); PHOSPHOROUS 3.6 mg/dL (2.5-4.9)
[2021-06-03 07:27] LABS: BILIRUBIN,TOTAL 0.8 mg/dL (0.2-1); TOT PROT 4.6 g/dl (6.4-8.2)
[2021-06-03] MEDS: ALBUTEROL SO4 2.5/IPRATROPIUM 0.5 INH SOL 3 ML VIAL.NEB. NEB SCH ×4 (07:40→20:32)
[2021-06-03 10:31] LABS: ANISOCYTOSIS 1+; MACROCYTOSIS 1+; PLATELET ESTIMATE DECREASED
[2021-06-03] MEDS: CARVEDILOL 3.125 MG TABLET (FP) PO SCH ×2 (10:39→21:16)
[2021-06-03] MEDS: ASPIRIN COATED 81 MG TABLET.EC PO SCH (10:39)
[2021-06-03] MEDS: ENOXAPARIN NA (PORCINE) 40 MG/0.4 ML DISP.SYRIN SQ SCH (10:39)
[2021-06-03] MEDS: BUDESONIDE/FORMETEROL FUMARATE 160/4.5 mcg INHALER IH SCH ×2 (10:40→21:17)
[2021-06-03] MEDS ORDERED: NYSTATIN 500,000 UNITS/5 ML SUSPENSION PO SCH ×2 (14:00→14:30)
[2021-06-03] MEDS ORDERED: PT OWN MED DRAWER 7, Y5N ONE (14:43)
[2021-06-03] MEDS: NYSTATIN 500,000 UNITS/5 ML SUSPENSION PO SCH (17:25)
[2021-06-03] MEDS: ATORVASTATIN CA 40 MG TABLET (FP) PO SCH (21:16)
[2021-06-03] MEDS: MONTELUKAST NA 10 MG TABLET PO SCH (21:16)
[2021-06-03] MEDS: LORazepam 0.5 MG TABLET PO PRN (21:17)
[2021-06-04] MEDS ORDERED: PT OWN MED DRAWER 7, Y5N ONE ×2 (00:16→23:59)
[2021-06-04] MEDS ORDERED: PIPERACILLIN/TAZOBACTAM 3.375 GM VIAL IVPB ONE ×4 (00:17→23:58)
[2021-06-04] MEDS ORDERED: DEXTROSE 5%-WATER - 50 ML IVPB ONE ×4 (00:17→23:58)
[2021-06-04] MEDS: VANCOMYCIN/WATER BAGS 1,250 MG/250 ML BAG IVPB SCH (00:21)
[2021-06-04] MEDS: NYSTATIN 500,000 UNITS/5 ML SUSPENSION PO SCH ×3 (00:21→11:25)
[2021-06-04] MEDS: methylPREDNISolone NA SUCC 40 MG/1 ML VIAL IVPUSH SCH ×3 (01:19→17:12)
[2021-06-04] MEDS: PIPERACILLIN/TAZOB 3.375 GM 3.375 GM in DEXTROSE 5%-WATER - 50 ML IVPB SCH ×3 (01:19→17:12)
[2021-06-04] MEDS: guaiFENesin/D-METHORPHAN HB 10 ML UNIT-DOSE CUPS PO SCH (04:40)
[2021-06-04] MEDS: LEVOTHYROXINE NA 50 MCG TABLET (FP) PO SCH (06:38)
[2021-06-04 07:01] LABS: HEMATOCRIT 33.4 % (35.4-49); HEMOGLOBIN 11.1 GM/dL (11.7-16.9); MCH 32.2 pg (25.7-33.7); MCHC 33.3 g/dl (32.0-35.9); MEAN CELL VOLUME 96.8 fl (80-96); MEAN PLT VOLUME 8.2 fl (7.5-11.1); PLATELET COUNT 144 10^3/uL (134-434); RBC 3.46 M/mm3 (4.00-5.60); RDW 15.8 % (11.9-15.9); WHITE BLOOD COUNT 12.5 K/mm3 (4.0-10.0)
[2021-06-04 07:28] LABS: BLOOD UREA NITROGEN 43.3 mg/dL (7-18); CALCIUM 7.7 mg/dL (8.5-10.1)
[2021-06-04 07:31] LABS: CREATININE 0.7 mg/dL (0.55-1.3)
[2021-06-04] MEDS: ALBUTEROL SO4 2.5/IPRATROPIUM 0.5 INH SOL 3 ML VIAL.NEB. NEB SCH ×4 (07:35→20:11)
[2021-06-04] MEDS ORDERED: ALPRAZolam 1 MG TABLET PO PRN (08:28)
[2021-06-04] MEDS ORDERED: ALPRAZolam 0.25 MG TABLET PO PRN (08:35)
[2021-06-04] MEDS: ENOXAPARIN NA (PORCINE) 40 MG/0.4 ML DISP.SYRIN SQ SCH (09:57)
[2021-06-04] MEDS: ASPIRIN COATED 81 MG TABLET.EC PO SCH (09:58)
[2021-06-04] MEDS: CARVEDILOL 3.125 MG TABLET (FP) PO SCH (09:58)
[2021-06-04] MEDS: BUDESONIDE/FORMETEROL FUMARATE 160/4.5 mcg INHALER IH SCH ×2 (09:59→21:38)
[2021-06-04 10:52] LABS: ANISOCYTOSIS 1+; MACROCYTOSIS 1+; PLATELET ESTIMATE DECREASED
[2021-06-04] MEDS ORDERED: METOPROLOL TARTRATE 5 MG/5 ML VIAL IVPUSH PRN ×2 (15:25→16:25)
[2021-06-04] MEDS ORDERED: ALPRAZolam 1 MG TABLET PO ONE (19:55)
[2021-06-05] MEDS: VANCOMYCIN/WATER BAGS 1,250 MG/250 ML BAG IVPB SCH (00:01)
[2021-06-05] MEDS: methylPREDNISolone NA SUCC 40 MG/1 ML VIAL IVPUSH SCH ×4 (02:55→21:12)
[2021-06-05] MEDS: PIPERACILLIN/TAZOB 3.375 GM 3.375 GM in DEXTROSE 5%-WATER - 50 ML IVPB SCH ×3 (02:55→17:27)
[2021-06-05] MEDS ORDERED: LORazepam 2 MG/ML SDV VIAL IVPUSH ONE (05:25)
[2021-06-05 07:03] LABS: HEMATOCRIT 33.3 % (35.4-49); HEMOGLOBIN 11.1 GM/dL (11.7-16.9); MCH 32.7 pg (25.7-33.7); MCHC 33.3 g/dl (32.0-35.9); MEAN CELL VOLUME 98.3 fl (80-96); MEAN PLT VOLUME 8.2 fl (7.5-11.1); PLATELET COUNT 129 10^3/uL (134-434); RBC 3.39 M/mm3 (4.00-5.60); RDW 16.2 % (11.9-15.9)
[2021-06-05 07:25] LABS: BLOOD UREA NITROGEN 41.1 mg/dL (7-18); CALCIUM 7.7 mg/dL (8.5-10.1); MAGNESIUM 2.7 mg/dL (1.8-2.4)
[2021-06-05 07:28] LABS: CREATININE 0.7 mg/dL (0.55-1.3)
[2021-06-05 07:29] LABS: PHOSPHOROUS 4.3 mg/dL (2.5-4.9)
[2021-06-05] MEDS: ALBUTEROL SO4 2.5/IPRATROPIUM 0.5 INH SOL 3 ML VIAL.NEB. NEB SCH ×4 (08:16→20:05)
[2021-06-05] MEDS ORDERED: PIPERACILLIN/TAZOBACTAM 3.375 GM VIAL IVPB ONE ×2 (08:28→16:59)
[2021-06-05] MEDS ORDERED: DEXTROSE 5%-WATER - 50 ML IVPB ONE ×2 (08:28→17:00)
[2021-06-05] MEDS: ENOXAPARIN NA (PORCINE) 40 MG/0.4 ML DISP.SYRIN SQ SCH ×3 (09:15→21:12)
[2021-06-05] MEDS: BUDESONIDE/FORMETEROL FUMARATE 160/4.5 mcg INHALER IH SCH ×2 (09:15→22:14)
[2021-06-05 09:16] LABS: ANISOCYTOSIS 1+; MACROCYTOSIS 0; PLATELET ESTIMATE DECREASED
[2021-06-05] MEDS ORDERED: PT OWN MED DRAWER 7, Y5N ONE (09:43)
[2021-06-05] MEDS: LEVOTHYROXINE SODIUM 100 MCG VIAL IVPUSH SCH (09:47)
[2021-06-05] MEDS ORDERED: LEVOTHYROXINE SODIUM 100 MCG VIAL IVPUSH SCH (10:00)
[2021-06-06] MEDS ORDERED: PT OWN MED DRAWER 7, Y5N ONE ×3 (00:15→09:56)
[2021-06-06] MEDS: VANCOMYCIN/WATER BAGS 1,250 MG/250 ML BAG IVPB SCH (00:17)
[2021-06-06] MEDS ORDERED: PIPERACILLIN/TAZOBACTAM 3.375 GM VIAL IVPB ONE ×3 (00:49→17:24)
[2021-06-06] MEDS ORDERED: DEXTROSE 5%-WATER - 50 ML IVPB ONE ×3 (00:49→17:24)
[2021-06-06] MEDS: PIPERACILLIN/TAZOB 3.375 GM 3.375 GM in DEXTROSE 5%-WATER - 50 ML IVPB SCH ×3 (01:57→17:39)
[2021-06-06] MEDS: methylPREDNISolone NA SUCC 40 MG/1 ML VIAL IVPUSH SCH ×4 (03:12→21:33)
[2021-06-06 07:21] LABS: HEMATOCRIT 32.5 % (35.4-49); HEMOGLOBIN 10.8 GM/dL (11.7-16.9); MCH 32.3 pg (25.7-33.7); MCHC 33.3 g/dl (32.0-35.9); MEAN CELL VOLUME 97.1 fl (80-96); PLATELET COUNT 106 10^3/uL (134-434); RBC 3.35 M/mm3 (4.00-5.60); RDW 16.3 % (11.9-15.9); WHITE BLOOD COUNT 10.5 K/mm3 (4.0-10.0)
[2021-06-06 07:27] LABS: CALCIUM 7.7 mg/dL (8.5-10.1)
[2021-06-06 07:28] LABS: BLOOD UREA NITROGEN 43.9 mg/dL (7-18); MAGNESIUM 2.8 mg/dL (1.8-2.4)
[2021-06-06 07:31] LABS: CREATININE 0.7 mg/dL (0.55-1.3); PHOSPHOROUS 3.7 mg/dL (2.5-4.9)
[2021-06-06] MEDS: ALBUTEROL SO4 2.5/IPRATROPIUM 0.5 INH SOL 3 ML VIAL.NEB. NEB SCH ×4 (08:27→20:52)
[2021-06-06 09:28] LABS: ANISOCYTOSIS 2+; MACROCYTOSIS 0; OVALOCYTE 2+; PLATELET ESTIMATE DECREASED; TOXIC GRANULATION 2+
[2021-06-06] MEDS: ENOXAPARIN NA (PORCINE) 40 MG/0.4 ML DISP.SYRIN SQ SCH (09:34)
[2021-06-06] MEDS: BUDESONIDE/FORMETEROL FUMARATE 160/4.5 mcg INHALER IH SCH (09:52)
[2021-06-06] MEDS: LEVOTHYROXINE SODIUM 100 MCG VIAL IVPUSH SCH (09:58)
[2021-06-06] MEDS: PANTOPRAZOLE SODIUM 40 MG VIAL IVPUSH SCH (13:15)
[2021-06-06 16:58] LABS: INR 1.4 (0.83-1.09); PROTHROMBIN TIME (PATIENT) 15.7 SEC (9.7-13.0)
[2021-06-06 17:01] LABS: ACTIVATED PTT 27.8 SECONDS (25.2-36.5)
[2021-06-07] MEDS ORDERED: PIPERACILLIN/TAZOBACTAM 3.375 GM VIAL IVPB ONE ×3 (03:34→18:09)
[2021-06-07] MEDS ORDERED: DEXTROSE 5%-WATER - 50 ML IVPB ONE ×3 (03:35→18:09)
[2021-06-07] MEDS: BUDESONIDE/FORMETEROL FUMARATE 160/4.5 mcg INHALER IH SCH ×3 (04:02→21:32)
[2021-06-07] MEDS: PIPERACILLIN/TAZOB 3.375 GM 3.375 GM in DEXTROSE 5%-WATER - 50 ML IVPB SCH ×3 (04:03→18:43)
[2021-06-07] MEDS: methylPREDNISolone NA SUCC 40 MG/1 ML VIAL IVPUSH SCH ×4 (04:03→20:21)
[2021-06-07 07:36] LABS: HEMATOCRIT 35.7 % (35.4-49); HEMOGLOBIN 11.9 GM/dL (11.7-16.9); MCH 32.3 pg (25.7-33.7); MCHC 33.5 g/dl (32.0-35.9); MEAN CELL VOLUME 96.7 fl (80-96); MEAN PLT VOLUME 8.8 fl (7.5-11.1); PLATELET COUNT 112 10^3/uL (134-434); RBC 3.69 M/mm3 (4.00-5.60); RDW 15.8 % (11.9-15.9); WHITE BLOOD COUNT 14.9 K/mm3 (4.0-10.0)
[2021-06-07] MEDS: ALBUTEROL SO4 2.5/IPRATROPIUM 0.5 INH SOL 3 ML VIAL.NEB. NEB SCH ×4 (07:50→20:15)
[2021-06-07 07:58] LABS: BLOOD UREA NITROGEN 48.2 mg/dL (7-18)
[2021-06-07 08:01] LABS: CREATININE 0.6 mg/dL (0.55-1.3); PHOSPHOROUS 3.5 mg/dL (2.5-4.9)
[2021-06-07 09:08] LABS: ANISOCYTOSIS 0; MACROCYTOSIS 0; PLATELET ESTIMATE DECREASED
[2021-06-07] MEDS ORDERED: PT OWN MED DRAWER 7, Y5N ONE (10:36)
[2021-06-07] MEDS: PANTOPRAZOLE SODIUM 40 MG VIAL IVPUSH SCH (10:44)
[2021-06-07] MEDS: LEVOTHYROXINE SODIUM 100 MCG VIAL IVPUSH SCH (10:44)
[2021-06-07] MEDS: ENOXAPARIN NA (PORCINE) 40 MG/0.4 ML DISP.SYRIN SQ SCH (10:49)
[2021-06-08] MEDS ORDERED: DEXTROSE 5%-WATER - 50 ML IVPB ONE ×2 (01:36→11:00)
[2021-06-08] MEDS ORDERED: PIPERACILLIN/TAZOBACTAM 3.375 GM VIAL IVPB ONE ×2 (01:36→11:00)
[2021-06-08] MEDS: PIPERACILLIN/TAZOB 3.375 GM 3.375 GM in DEXTROSE 5%-WATER - 50 ML IVPB SCH ×2 (01:37→11:05)
[2021-06-08] MEDS: methylPREDNISolone NA SUCC 40 MG/1 ML VIAL IVPUSH SCH ×2 (02:38→11:07)
[2021-06-08 07:38] LABS: CALCIUM 7.9 mg/dL (8.5-10.1); MAGNESIUM 2.8 mg/dL (1.8-2.4)
[2021-06-08 07:39] LABS: BLOOD UREA NITROGEN 53.2 mg/dL (7-18)
[2021-06-08 07:41] LABS: HEMATOCRIT 35.9 % (35.4-49); HEMOGLOBIN 12.1 GM/dL (11.7-16.9); MCH 32.6 pg (25.7-33.7); MCHC 33.7 g/dl (32.0-35.9); MEAN CELL VOLUME 96.7 fl (80-96); MEAN PLT VOLUME 8.3 fl (7.5-11.1); PLATELET COUNT 80 10^3/uL (134-434); RBC 3.71 M/mm3 (4.00-5.60); RDW 15.9 % (11.9-15.9); WHITE BLOOD COUNT 16.2 K/mm3 (4.0-10.0)
[2021-06-08 07:42] LABS: CREATININE 0.7 mg/dL (0.55-1.3); PHOSPHOROUS 3.3 mg/dL (2.5-4.9)
[2021-06-08] MEDS: ALBUTEROL SO4 2.5/IPRATROPIUM 0.5 INH SOL 3 ML VIAL.NEB. NEB SCH ×2 (08:35→11:20)
[2021-06-08 09:12] VITALS: BP 132/88; PULSE 69; TEMP 97.6
[2021-06-08] MEDS: ENOXAPARIN NA (PORCINE) 40 MG/0.4 ML DISP.SYRIN SQ SCH (11:05)
[2021-06-08] MEDS: PANTOPRAZOLE SODIUM 40 MG VIAL IVPUSH SCH (11:05)
[2021-06-08] MEDS: BUDESONIDE/FORMETEROL FUMARATE 160/4.5 mcg INHALER IH SCH (11:06)
[2021-06-08 11:08] LABS: ANISOCYTOSIS 1+; MACROCYTOSIS 1+; PLATELET ESTIMATE DECREASED
[2021-06-08] MEDS ORDERED: PT OWN MED DRAWER 7, Y5N ONE (11:13)
[2021-06-08] MEDS: LEVOTHYROXINE SODIUM 100 MCG VIAL IVPUSH SCH (11:16)
[2021-06-08] MEDS ORDERED: morphine SULFATE 4 MG/ML VIAL IVPUSH PRN (11:17)
[2021-06-08 11:59] LABS: ALLENS TEST POSITIVE; ARTERIAL BLD GAS O2 SATURATION 95.7 % (95-98); ARTERIAL BLOOD GAS BASE EXCESS 0.1 mmol/L (-2-2); ARTERIAL BLOOD GAS PO2 72.3 mmHg (80-100); ARTERIAL BLOOD GAS pH 7.478 (7.350-7.450)
== END 2021-06-08 16:00 | disposition expired | DRG 177 ==
LOC: JER 21:07 → JERBED 23:47 → J4W 05-28 10:39
PROVIDERS: ATTEND Internal Medicine
DX: J69.0 Pneumonitis due to inhalation of food and vomit (principal); J96.01 Acute respiratory failure with hypoxia; J44.0 Chronic obstructive pulmonary disease with (acute) lower respiratory infection; E87.2 Acidosis; I24.8 Other forms of acute ischemic heart disease; B37.0 Candidal stomatitis; J45.901 Unspecified asthma with (acute) exacerbation; R04.2 Hemoptysis; N17.9 Acute kidney failure, unspecified; I10 Essential (primary) hypertension; E78.5 Hyperlipidemia, unspecified; E03.9 Hypothyroidism, unspecified; R13.10 Dysphagia, unspecified; F41.9 Anxiety disorder, unspecified
CPT/HCPCS: 36415; 36600; 71045-TC-FY; 80048; 80053; 81003; 82728; 82803; 83036; 83605; 83615; 83735; 84100; 84484; 85025; 85379; 85610; 85730; 86140; 86738; 87040; 87070; 87086; 87205; 87804; 87899; 93005; 93010; 94640; 97116-GP; 97161-GP; 99285-25; C9803; G0480; U0003; U0005